=== PATIENT | female | born 1960 | race Caucasian/White ===

== ENCOUNTER 2016-08-27 14:07 | Emergency (ER) | payer OTHER ==
--- NOTE | 2016-08-27 15:33 | ED ---
General Adult HPI - General Chief complaint: Abdominal Pain Stated complaint: Abd Pain Time Seen by Provider: 08/27/16 14:15 Source: patient, RN notes reviewed Mode of arrival: ambulatory Limitations: no limitations - History of Present Illness Initial comments: This is a 56 year old female who presents emergency pain of right lower quadrant abdominal pain. Patient states it started last night got considerably worse today. Patient states the pain is intermittent. It never goes was completely but he gets worse at times. Patient states nothing she does makes it feel much better however she says pressing on it initially hurts but it seems that she keeps her pressure on the area it does feel better. Patient denies any fever chills. Patient denies any nausea vomiting or diarrhea. Patient denies any dysuria hematuria urinary frequency. Patient has a past surgery for colectomy and a hysterectomy and the gastric bypass. Patient denies any chest pain difficult breathing shortness of breath. Patient denies any headache patient denies lightheadedness dizziness in his left low. Patient states she does have a little bit of lower back pain bilaterally. - Related Data Home Medications Medication Instructions Recorded Confirmed ALPRAZolam [Xanax] 0.5 mg PO DAILY PRN 08/27/16 08/27/16 Lansoprazole [Prevacid] 15 mg PO DAILY 08/27/16 08/27/16 Multivitamins, Thera [Multivitamin 1 tab PO DAILY 08/27/16 08/27/16 (formulary)] Allergies Allergy/AdvReac Type Severity Reaction Status Date / Time No Known Allergies Allergy Verified 08/27/16 15:15 Review of Systems ROS Statement: Those systems with pertinent positive or pertinent negative responses have been documented in the HPI. ROS Other: All systems not noted in ROS Statement are negative. Past Medical History Past Medical History: Cancer Additional Past Medical History / Comment(s): left breast cancer History of Any Multi-Drug Resistant Organisms: MRSA Date of last positivie culture/infection: 2015 MDRO Source:: right knee Past Surgical History: Adenoidectomy, Bariatric Surgery, Hysterectomy, Tonsillectomy Additional Past Surgical History / Comment(s): lumpectomy Past Psychological History: No Psychological Hx Reported Smoking Status: Never smoker Past Alcohol Use History: None Reported Past Drug Use History: None Reported General Exam - General Exam Comments Initial Comments: GENERAL: Patient is well-developed and well-nourished. Patient is nontoxic and well- hydrated and is in mild distress. ENT: Neck is soft and supple. No significant lymphadenopathy is noted. Oropharynx is clear. Moist mucous membranes. Neck has full range of motion without eliciting any pain. EYES: The sclera were anicteric and conjunctiva were pink and moist. Extraocular movements were intact and pupils were equal round and reactive to light. Eyelids were unremarkable. PULMONARY: Unlabored respirations. Good breath sounds bilaterally. No audible rales rhonchi or wheezing was noted. CARDIOVASCULAR: There is a regular rate and rhythm without any murmurs gallops or rubs. ABDOMEN: Patient has right lower quadrant point tenderness there is no rebound or guarding SKIN: Skin is clear with no lesions or rashes and otherwise unremarkable. NEUROLOGIC: Patient is alert and oriented x3. Cranial nerves II through XII are grossly intact. Motor and sensory are also intact. Normal speech, volume and content. Symmetrical smile. MUSCULOSKELETAL: Normal extremities with adequate strength and full range of motion. No lower extremity swelling or edema. No calf tenderness. LYMPHATICS: No significant lymphadenopathy is noted PSYCHIATRIC: Normal psychiatric evaluation. Limitations: no limitations Course Vital Signs 08/27/16 14:13 Temperature 98.9 F Pulse Rate 92 Respiratory 16 Rate Blood Pressure 144/91 O2 Sat by Pulse 96 Oximetry Medical Decision Making - Medical Decision Making Computed tomography scan shows no acute abnormality. I went back and reevaluated the patient she states the pain would go away and come back intermittently through her ED stay. Patient states currently the pain is not there. - Lab Data Result diagrams: 08/27/16 15:36 08/27/16 15:36 Lab Results 08/27/16 08/27/16 08/27/16 Range/Units 15:36 15:36 15:36 WBC 7.3 (3.8-10.6) k/uL RBC 4.89 (3.80-5.40) m/uL Hgb 14.1 (11.4-16.0) gm/dL Hct 41.6 (34.0-46.0) % MCV 85.1 (80.0-100.0) fL MCH 28.8 (25.0-35.0) pg MCHC 33.8 (31.0-37.0) g/dL RDW 14.0 (11.5-15.5) % Plt Count 329 (150-450) k/uL Neutrophils % 68 % Lymphocytes % 23 % Monocytes % 4 % Eosinophils % 3 % Basophils % 1 % Neutrophils # 5.0 (1.3-7.7) k/uL Lymphocytes # 1.7 (1.0-4.8) k/uL Monocytes # 0.3 (0-1.0) k/uL Eosinophils # 0.2 (0-0.7) k/uL Basophils # 0.1 (0-0.2) k/uL Sodium 141 (137-145) mmol/L Potassium 4.1 (3.5-5.1) mmol/L Chloride 105 (98-107) mmol/L Carbon Dioxide 23 (22-30) mmol/L Anion Gap 13 mmol/L BUN 12 (7-17) mg/dL Creatinine 0.63 (0.52-1.04) mg/dL Est GFR (MDRD) Af Amer >60 (>60 ml/min/1.73 sqM) Est GFR (MDRD) Non-Af >60 (>60 ml/min/1.73 sqM) Glucose 104 H (74-99) mg/dL Calcium 9.7 (8.4-10.2) mg/dL Total Bilirubin 0.6 (0.2-1.3) mg/dL AST 19 (14-36) U/L ALT 23 (9-52) U/L Alkaline Phosphatase 141 H (38-126) U/L Total Protein 7.4 (6.3-8.2) g/dL Albumin 4.3 (3.5-5.0) g/dL Amylase 59 (30-110) U/L Lipase 120 (23-300) U/L Urine Color Light Yellow Urine Appearance Clear (Clear) Urine pH 5.0 (5.0-8.0) Ur Specific [place] 1.003 (1.001-1.035) Urine Protein Negative (Negative) Urine Glucose (UA) Negative (Negative) Urine Ketones Negative (Negative) Urine Blood Negative (Negative) Urine Nitrite Negative (Negative) Urine Bilirubin Negative (Negative) Urine Urobilinogen <2.0 (<2.0) mg/dL Ur Leukocyte Esterase Negative (Negative) Disposition Clinical Impression: Abdominal pain Disposition: HOME SELF-CARE Instructions: Abdominal Pain (ED) Referrals: Erich Fisher MD [Primary Care Provider] - 1-2 days Time of Disposition: 16:53
[2016-08-27 15:55] LABS: Appearance,Urine Clear (Clear); Basophils # (A) 0.1 k/uL (0-0.2); Basophils % (A) 1 %; Bilirubin,Urine Negative (Negative); CH 28.9; CHCM 34.1; Eosinophils # (A) 0.2 k/uL (0-0.7); Eosinophils % (A) 3 %; Glucose,Urine (UA) Negative (Negative); HCT 41.6 % (34.0-46.0); HGB 14.1 gm/dL (11.4-16.0); Ketones,Urine Negative (Negative); Leukocyte Esterase,Urine Negative (Negative); Luc # (Auto) 0.17; Luc % (Auto) 2; Lymphocytes # (A) 1.7 k/uL (1.0-4.8); Lymphocytes % (A) 23 %; MCH 28.8 pg (25.0-35.0); MCHC 33.8 g/dL (31.0-37.0); MCV 85.1 fL (80.0-100.0); Mean Platelet Volume 6.9; Monocytes # (A) 0.3 k/uL (0-1.0); Monocytes % (A) 4 %; Neutrophils % (A) 68 %; Nitrite,Urine Negative (Negative); Protein,Urine Negative (Negative); RBC 4.89 m/uL (3.80-5.40); Specific Gravity,Urine 1.003 (1.001-1.035); UA Billing (MACRO vs. MICRO) CHEM; Urobilinogen,Urine <2.0 mg/dL (<2.0); WBC 7.3 k/uL (3.8-10.6); WBC (Perox) 7.55
--- NOTE | 2016-08-27 16:13 | CT ---
EXAMINATION TYPE: CT abdomen pelvis wo con DATE OF EXAM: 08/27/2016 3:57 PM COMPARISON: NONE HISTORY: Abdominal pain CT DLP: 1202 mGycm Automated exposure control for dose reduction was used. TECHNIQUE: Helical acquisition of images from the lung bases through the pelvis. FINDINGS: Postop changes are noted at the gastroesophageal junction, patient is status post gastric s leeve surgery, surgical clips are present. Lack of contrast may compromise sensitivity. Small anterio r abdominal wall hernia present at the umbilicus contains fat. Vipul are present along the midline anteriorly. LUNG BASES: No significant abnormality is appreciated. AORTA: No significant abnormality is appreciated. LIVER/GB: No significant abnormality is appreciated. PANCREAS: No significant abnormality is seen. SPLEEN: No significant abnormality is seen. ADRENALS: No significant abnormality is seen. KIDNEYS: No significant abnormality is seen. REPRODUCTIVE ORGANS: Not evident URINARY BLADDER: Not distended. BOWEL: No evident bowel obstruction. Diverticular changes noted within the pelvis. Difficult to excl ude some local inflammatory change although findings may be due to post hysterectomy change, no evide nt abscess. FREE AIR: No Free Air is visible. ASCITES: None visible. PELVIC ADENOPATHY: None visualized. RETROPERITONEAL ADENOPATHY: No Retroperitoneal Adenopathy visible. OSSEOUS STRUCTURES: Bilateral spondylolysis at L5 is present, there is a grade 1 anterolisthesis L5- S1 with associated loss of disc height, degenerative disc change. IMPRESSION: DIVERTICULOSIS. CORRELATE TO EXCLUDE DIVERTICULITIS. POSTOP CHANGES. NONCONTRAST EXAM COULD LIMIT SEN SITIVITY. SMALL ANTERIOR ABDOMINAL WALL HERNIA. FOLLOW-UP INDICATED.
[2016-08-27 16:14] LABS: ALT 23 U/L (9-52); AST 19 U/L (14-36); Alkaline Phosphatase 141 U/L (38-126); Amylase 59 U/L (30-110); Anion Gap 13 mmol/L; Blood Urea Nitrogen 12 mg/dL (7-17); Calcium 9.7 mg/dL (8.4-10.2); Carbon Dioxide 23 mmol/L (22-30); Chloride 105 mmol/L (98-107); Glucose 104 mg/dL (74-99); Non-African American GFR(MDRD) >60 (>60 ml/min/1.73 sqM); Potassium 4.1 mmol/L (3.5-5.1); Sodium 141 mmol/L (137-145); Total Bilirubin 0.6 mg/dL (0.2-1.3); Total Protein 7.4 g/dL (6.3-8.2)
[2016-08-27 17:03] VITALS: BP 142/87; PULSE 81; RESP 18; TEMP 98.7
== END 2016-08-27 17:03 | disposition home or self-care (01) ==
LOC: EC 14:07
DX: R10.31 Right lower quadrant pain (principal); M54.5 Low back pain; Z79.899 Other long term (current) drug therapy; Z98.84 Bariatric surgery status; Z90.710 Acquired absence of both cervix and uterus
CPT/HCPCS: 36415; 74176; 80053; 81003; 82150; 83690; 85025; 99284

== ENCOUNTER → 2016-10-14 | Outpatient (CLI) | payer OTHER ==
--- NOTE | 2016-10-14 09:48 | US ---
EXAMINATION TYPE: US abdomen complete DATE OF EXAM: 10/14/2016 8:17 AM COMPARISON: CT CLINICAL HISTORY: 56-year-old female R10.9 ABD PAIN. Intermittent RLQ pain x 1 month, obese patient. TECHNIQUE: Multiple sonographic images of the abdomen are obtained. FINDINGS: Liver Length: 13.8 cm Gallbladder Wall: 2.7 mm CBD: 3.8 mm Spleen: 10.7 cm Right Kidney: 10.6 x 4.9 x 4.6 cm Left Kidney: 11.3 x 5.6 x 5.2 cm Pancreas: Suboptimal visualization secondary to shadowing from bowel gas. Liver: Slightly heterogeneous in echotexture could be on a technical basis. Gallbladder: No abnormal distention, wall thickening, pericholecystic fluid, or shadowing calculi. Evidence for sonographic Bourgeois's sign: no CBD: visualized portions wnl, limited by overlying bowel gas Spleen: wnl Right Kidney: No hydronephrosis Left Kidney: No hydronephrosis Upper IVC: Limited visualization. Abd Aorta: Limited visualization due to bowel gas. Small amount of perihepatic ascites fluid. Scanned RLQ at patient's area of pain: 2.0 x 1.1 x 1.2cm hypoechoic, non vascular area along the mon perficial fascia. IMPRESSION: 1. Slight heterogeneous appearance to the liver may be on a technical basis. Correlate to exclude non specific hepatocellular disease, especially given the mild perihepatic ascites. 2. Targeted scanning along the right lower quadrant at the site of patient's pain shows a 2.0 x 1.2 c m hypoechoic area along the superficial fascia of the anterior abdominal wall that could represent a tiny hernia.
== END | disposition home or self-care (01) ==
LOC: RADUSWWP 07:41
PROVIDERS: ATTEND Family Medicine
DX: R93.2 Abnormal findings on diagnostic imaging of liver and biliary tract (principal); R93.8 Abnormal findings on diagnostic imaging of other specified body structures; R10.9 Unspecified abdominal pain
CPT/HCPCS: 76700

== ENCOUNTER → 2016-11-08 | Outpatient (CLI) | payer OTHER ==
--- NOTE | 2016-11-08 10:50 | FL ---
EXAMINATION TYPE: FL UGI air w small bowel DATE OF EXAM: 11/08/2016 COMPARISON: CT abdomen and pelvis August 27, 2016. HISTORY: Epigastric pain, history of gastric bypass surgery years ago. TECHNIQUE: A single contrast UGI study is performed with small bowel follow through. A total of 10 s econds of fluoroscopic time is utilized during procedure. FINDINGS: Clinical Research Scientist image of the abdomen shows overlying subcutaneous vertical skin abraham with surgica l sutures epigastric region from bypass surgery. There is overall nonobstructive bowel gas pattern. The esophagus shows satisfactory motility and emptying into the stomach. No evidence of hiatal herni a or stricture noted. The remnant stomach pouch is unremarkable with good flow into anastomotic small bowel loop. The visualized small bowel is felt within normal limits. Imaging is performed through 90 minutes with transition only to ileal loops in the right lower quadrant. Patient could not stay for complete pass age of contrast to colonic level. Visualized bowel is unremarkable. IMPRESSION: Slightly suboptimal study as noted above. No suspicious finding is seen to account for p atient's symptoms. Changes from gastric bypass surgery without evidence of complication identified.
== END | disposition home or self-care (01) ==
LOC: RADFLMAIN 08:24
PROVIDERS: ATTEND Surgery
DX: Z48.815 Encounter for surgical aftercare following surgery on the digestive system (principal); R10.13 Epigastric pain; Z98.84 Bariatric surgery status
CPT/HCPCS: 74249

== ENCOUNTER 2016-11-18 15:02 | Inpatient (IN) | payer OTHER ==
[2016-11-18] MEDS ORDERED: IBUPROFEN 600 MG TAB PO STA (15:20)
[2016-11-18] MEDS ORDERED: ACETAMINOPHEN TAB 500 MG TAB PO STA (15:20)
[2016-11-18] MEDS ORDERED: SODIUM CHLORIDE 0.9% 1,000 ML IV STA (15:20)
[2016-11-18] MEDS ORDERED: SODIUM CHLORIDE 0.9% 500 ML IV STA (15:20)
--- NOTE | 2016-11-18 15:25 | ED ---
General Adult HPI - General Chief complaint: Recheck/Abnormal Lab/Rx Stated complaint: Dr Sent/Irr heartbeat Time Seen by Provider: 11/18/16 15:20 Source: patient, RN notes reviewed, old records reviewed Mode of arrival: wheelchair Limitations: no limitations - History of Present Illness Initial comments: This is a 56-year-old female the ER for evaluation of abdominal pain. Fauzia pain or fever. Patient has history of gastric bypass not at this facility, and consistent problems with abdominal pain. Patient states she was recently in the hospital about a week to 2 weeks ago and had a CT abdomen and pelvis which was negative. She may or may not have an abdominal hernia. Patient noted fever today. No nausea vomiting, no diarrhea. Patient was at her doctor's office today her surgeon's office and sent to ER for evaluation regarding symptoms. - Related Data Home Medications Medication Instructions Recorded Confirmed Multivitamins, Thera [Multivitamin 1 tab PO QAM 08/27/16 11/18/16 (formulary)] Lansoprazole [Prevacid] 30 mg PO DAILY 11/18/16 11/18/16 Allergies Allergy/AdvReac Type Severity Reaction Status Date / Time No Known Allergies Allergy Verified 11/18/16 16:10 Review of Systems ROS Statement: Those systems with pertinent positive or pertinent negative responses have been documented in the HPI. ROS Other: All systems not noted in ROS Statement are negative. Past Medical History Past Medical History: Cancer Additional Past Medical History / Comment(s): left breast cancer History of Any Multi-Drug Resistant Organisms: MRSA Date of last positivie culture/infection: 2015 MDRO Source:: right knee Past Surgical History: Adenoidectomy, Bariatric Surgery, Hysterectomy, Tonsillectomy Additional Past Surgical History / Comment(s): lumpectomy Past Psychological History: No Psychological Hx Reported Smoking Status: Never smoker Past Alcohol Use History: None Reported Past Drug Use History: None Reported General Exam Limitations: no limitations General appearance: alert, in no apparent distress, anxious, obese Head exam: Present: atraumatic, normocephalic, normal inspection Eye exam: Present: normal appearance, PERRL, EOMI. Absent: scleral icterus, conjunctival injection, periorbital swelling ENT exam: Present: normal exam, mucous membranes moist Neck exam: Present: normal inspection. Absent: tenderness, meningismus, lymphadenopathy Respiratory exam: Present: normal lung sounds bilaterally. Absent: respiratory distress, wheezes, rales, rhonchi, stridor Cardiovascular Exam: Present: normal rhythm, tachycardia, normal heart sounds. Absent: systolic murmur, diastolic murmur, rubs, gallop, clicks GI/Abdominal exam: Present: soft, distended, tenderness, normal bowel sounds. Absent: guarding, rebound, rigid Extremities exam: Present: normal inspection, full ROM, normal capillary refill. Absent: tenderness, pedal edema, joint swelling, calf tenderness Back exam: Present: normal inspection Neurological exam: Present: alert, oriented X3, CN II-XII intact Psychiatric exam: Present: normal affect, normal mood Skin exam: Present: warm, dry, intact, normal color. Absent: rash Course Vital Signs 11/18/16 11/18/16 11/18/16 15:10 15:43 17:09 Temperature 100.1 F H 100.4 F H Pulse Rate 121 H 121 H 113 H Respiratory 16 18 18 Rate Blood Pressure 150/97 148/89 146/83 O2 Sat by Pulse 95 95 93 L Oximetry - Reevaluation(s) Reevaluation #1: 11/18/16 16:[address] Clement, patient's transfer a surgeon regarding patient, Reevaluation #2: 11/18/16 17:20 Patient is feeling better with fever control and pain control at this time. Reevaluation #3: 11/18/16 17:22 Dr. Roe made aware of patient in the emergency room, EKG Findings - EKG Comments: EKG Findings:: EKG shows sinus tachycardia rate of 119, IN 1:30, QRS 88, QTC 436 Medical Decision Making - Medical Decision Making 36 female sent ER for evaluation regarding abdominal pain transferred from Dr. Stevens's office, patient follows up there for evaluation of about pain. Multiple recent episodes of bowel pain and evaluation, patient also noted fever today overnight. Patient does have ascites on ultrasound, x-ray and urine are negative for infection, no other obvious source of infection patient has no rash no chest pain no sore throat no cough or congestion. At this point we have fever control start Gen. antibiotics regarding fever and patient will be admitted for surgical evaluation - Lab Data Result diagrams: 11/18/16 15:45 11/18/16 15:45 Lab Results 11/18/16 11/18/16 11/18/16 Range/Units 15:45 15:45 15:45 WBC 7.7 (3.8-10.6) k/uL RBC 4.91 (3.80-5.40) m/uL Hgb 13.6 (11.4-16.0) gm/dL Hct 42.4 (34.0-46.0) % MCV 86.5 (80.0-100.0) fL MCH 27.8 (25.0-35.0) pg MCHC 32.1 (31.0-37.0) g/dL RDW 13.1 (11.5-15.5) % Plt Count 589 H (150-450) k/uL Neutrophils % 78 % Lymphocytes % 14 % Monocytes % 6 % Eosinophils % 1 % Basophils % 0 % Neutrophils # 6.0 (1.3-7.7) k/uL Lymphocytes # 1.0 (1.0-4.8) k/uL Monocytes # 0.4 (0-1.0) k/uL Eosinophils # 0.1 (0-0.7) k/uL Basophils # 0.0 (0-0.2) k/uL PT (9.0-12.0) sec INR (<1.1) APTT (22.0-30.0) sec Sodium 138 (137-145) mmol/L Potassium 4.1 (3.5-5.1) mmol/L Chloride 100 (98-107) mmol/L Carbon Dioxide 26 (22-30) mmol/L Anion Gap 12 mmol/L BUN 10 (7-17) mg/dL Creatinine 0.60 (0.52-1.04) mg/dL Est GFR (MDRD) Af Amer >60 (>60 ml/min/1.73 sqM) Est GFR (MDRD) Non-Af >60 (>60 ml/min/1.73 sqM) Glucose 107 H (74-99) mg/dL Plasma Lactic Acid Esau 0.9 (0.7-2.0) mmol/L Calcium 9.1 (8.4-10.2) mg/dL Phosphorus 4.0 (2.5-4.5) mg/dL Magnesium 2.1 (1.6-2.3) mg/dL Total Bilirubin 0.6 (0.2-1.3) mg/dL AST 19 (14-36) U/L ALT 28 (9-52) U/L Alkaline Phosphatase 105 (38-126) U/L Total Creatine Kinase (30-135) U/L CK-MB (CK-2) (0.0-2.4) ng/mL CK-MB (CK-2) Rel Index Troponin I (0.000-0.034) ng/mL Total Protein 6.4 (6.3-8.2) g/dL Albumin 3.5 (3.5-5.0) g/dL Urine Color Urine Appearance (Clear) Urine pH (5.0-8.0) Ur Specific [place] (1.001-1.035) Urine Protein (Negative) Urine Glucose (UA) (Negative) Urine Ketones (Negative) Urine Blood (Negative) Urine Nitrite (Negative) Urine Bilirubin (Negative) Urine Urobilinogen (<2.0) mg/dL Ur Leukocyte Esterase (Negative) Urine RBC (0-5) /hpf Urine WBC (0-5) /hpf Ur Squamous Epith Cells (0-4) /hpf Urine Bacteria (None) /hpf Urine Mucus (None) /hpf 11/18/16 11/18/16 11/18/16 Range/Units 15:45 15:45 15:45 WBC (3.8-10.6) k/uL RBC (3.80-5.40) m/uL Hgb (11.4-16.0) gm/dL Hct (34.0-46.0) % MCV (80.0-100.0) fL MCH (25.0-35.0) pg MCHC (31.0-37.0) g/dL RDW (11.5-15.5) % Plt Count (150-450) k/uL Neutrophils % % Lymphocytes % % Monocytes % % Eosinophils % % Basophils % % Neutrophils # (1.3-7.7) k/uL Lymphocytes # (1.0-4.8) k/uL Monocytes # (0-1.0) k/uL Eosinophils # (0-0.7) k/uL Basophils # (0-0.2) k/uL PT 10.0 (9.0-12.0) sec INR 1.0 (<1.1) APTT 24.3 (22.0-30.0) sec Sodium (137-145) mmol/L Potassium (3.5-5.1) mmol/L Chloride (98-107) mmol/L Carbon Dioxide (22-30) mmol/L Anion Gap mmol/L BUN (7-17) mg/dL Creatinine (0.52-1.04) mg/dL Est GFR (MDRD) Af Amer (>60 ml/min/1.73 sqM) Est GFR (MDRD) Non-Af (>60 ml/min/1.73 sqM) Glucose (74-99) mg/dL Plasma Lactic Acid Esau (0.7-2.0) mmol/L Calcium (8.4-10.2) mg/dL Phosphorus (2.5-4.5) mg/dL Magnesium (1.6-2.3) mg/dL Total Bilirubin (0.2-1.3) mg/dL AST (14-36) U/L ALT (9-52) U/L Alkaline Phosphatase (38-126) U/L Total Creatine Kinase 22 L (30-135) U/L CK-MB (CK-2) 0.2 (0.0-2.4) ng/mL CK-MB (CK-2) Rel Index 0.9 Troponin I <0.012 (0.000-0.034) ng/mL Total Protein (6.3-8.2) g/dL Albumin (3.5-5.0) g/dL Urine Color Yellow Urine Appearance Cloudy H (Clear) Urine pH 5.5 (5.0-8.0) Ur Specific [place] 1.013 (1.001-1.035) Urine Protein Negative (Negative) Urine Glucose (UA) Negative (Negative) Urine Ketones 2+ H (Negative) Urine Blood Negative (Negative) Urine Nitrite Negative (Negative) Urine Bilirubin Negative (Negative) Urine Urobilinogen <2.0 (<2.0) mg/dL Ur Leukocyte Esterase Small H (Negative) Urine RBC 1 (0-5) /hpf Urine WBC 5 (0-5) /hpf Ur Squamous Epith Cells 11 H (0-4) /hpf Urine Bacteria Rare H (None) /hpf Urine Mucus Rare H (None) /hpf - Radiology Data Radiology results: report reviewed (Ultrasound abdomen and pelvis that show increase in ascitic fluid which appears to be new from prior ultrasound), image reviewed Disposition Clinical Impression: Ascites, Abdominal pain, Fever Disposition: ADMITTED IP TO THIS HOSP Condition: Good Referrals: Erich Fisher MD [Primary Care Provider] - 1-2 days
[2016-11-18 16:09] LABS: Basophils % (A) 0 %; CH 28.3; CHCM 32.8; Eosinophils # (A) 0.1 k/uL (0-0.7); Eosinophils % (A) 1 %; HCT 42.4 % (34.0-46.0); HDW 2.72; HGB 13.6 gm/dL (11.4-16.0); Luc # (Auto) 0.11; Luc % (Auto) 2; Lymphocytes % (A) 14 %; MCH 27.8 pg (25.0-35.0); MCHC 32.1 g/dL (31.0-37.0); MCV 86.5 fL (80.0-100.0); Mean Platelet Volume 6.2; Monocytes # (A) 0.4 k/uL (0-1.0); Monocytes % (A) 6 %; Neutrophils % (A) 78 %; RBC 4.91 m/uL (3.80-5.40); RDW 13.1 % (11.5-15.5); WBC 7.7 k/uL (3.8-10.6); WBC (Perox) 6.99
[2016-11-18 16:12] LABS: Appearance,Urine Cloudy (Clear); Bacteria,Urine Rare /hpf; Bilirubin,Urine Negative (Negative); Glucose,Urine (UA) Negative (Negative); Ketones,Urine 2+ (Negative); Leukocyte Esterase,Urine Small (Negative); Mucus,Urine Rare /hpf; Nitrite,Urine Negative (Negative); PH, Urine 5.5 (5.0-8.0); Particle Count 11680; Protein,Urine Negative (Negative); RBC,Urine 1 /hpf (0-5); Specific Gravity,Urine 1.013 (1.001-1.035); Squamous Epithelial Cell,Urine 11 /hpf (0-4); UA Billing (MACRO vs. MICRO) MICRO; Urobilinogen,Urine <2.0 mg/dL (<2.0); WBC,Urine 5 /hpf (0-5)
[2016-11-18 16:19] LABS: Partial Thromboplastin Time 24.3 sec (22.0-30.0)
[2016-11-18 16:21] LABS: ALT 28 U/L (9-52); AST 19 U/L (14-36); Alkaline Phosphatase 105 U/L (38-126); Anion Gap 12 mmol/L; Blood Urea Nitrogen 10 mg/dL (7-17); Calcium 9.1 mg/dL (8.4-10.2); Carbon Dioxide 26 mmol/L (22-30); Chloride 100 mmol/L (98-107); Glucose 107 mg/dL (74-99); Magnesium 2.1 mg/dL (1.6-2.3); Non-African American GFR(MDRD) >60 (>60 ml/min/1.73 sqM); Potassium 4.1 mmol/L (3.5-5.1); Sodium 138 mmol/L (137-145); Total Bilirubin 0.6 mg/dL (0.2-1.3); Total Protein 6.4 g/dL (6.3-8.2)
[2016-11-18 16:23] LABS: Creatine Kinase 22 U/L (30-135)
[2016-11-18 16:36] LABS: Creatine Kinase MB 0.2 ng/mL (0.0-2.4); Troponin I <0.012 ng/mL (0.000-0.034)
--- NOTE | 2016-11-18 17:13 | US ---
EXAMINATION TYPE: US gallbladder DATE OF EXAM: 11/18/2016 COMPARISON: NONE CLINICAL HISTORY: Pain. Abdominal with food ingestion; bloating EXAM MEASUREMENTS: Liver Length: 13.0 cm Gallbladder Wall: 0.3 cm CBD: 0.3 cm Right Kidney: 10.2 x 4.8 x 4.6 cm Pancreas: hyperechoic as seen; limitedly seen due overlying bowel gas Liver: surrounded by ascites Gallbladder: wnl Evidence for sonographic Bourgeois's sign: pain with pressure CBD: wnl Right Kidney: wnl Ascites is noted in all 4 quadrants with largest at RLQ fluid pocket = 13.1cm A/P and at LLQ fluid po cket = 14.7cm A/P IMPRESSION: There is ascites fluid noted. No gallstones or dilated ducts.
[2016-11-18] MEDS ORDERED: ONDANSETRON 4 MG/2 ML VIAL IVP STA (17:16)
[2016-11-18] MEDS ORDERED: MORPHINE SULFATE 4 MG/ML SYRINGE IVP PRN (17:16)
[2016-11-18] MEDS ORDERED: ONDANSETRON 4 MG/2 ML VIAL IVP PRN (17:16)
[2016-11-18] MEDS ORDERED: MORPHINE SULFATE 4 MG/ML SYRINGE IVP STA (17:16)
[2016-11-18] MEDS ORDERED: cefTRIAXone 2,000 MG in SODIUM CHLORIDE 0.9% 100 ML IVPB STA (17:19)
[2016-11-18] MEDS ORDERED: IBUPROFEN 400 MG TAB PO PRN (17:22)
[2016-11-18] MEDS ORDERED: ACETAMINOPHEN TAB 325 MG TAB PO PRN (17:22)
--- NOTE | 2016-11-18 17:33 | XR ---
EXAMINATION TYPE: XR chest 2V DATE OF EXAM: 11/18/2016 COMPARISON: NONE HISTORY: Abdominal pain. Chest pain TECHNIQUE: Frontal and lateral views of the chest are obtained. FINDINGS: There is mild linear density in the right lower lobe. There are clips over the left breast . Heart size is normal. There is no heart failure. There is no definite pleural effusion. IMPRESSION: Mild atelectasis in the right lung. Normal heart. No sign of free air.
[2016-11-18] MEDS ORDERED: RX INFO: IV CONTRAST WAS GIVEN 1 EACH MISC MISCELLANE PRN (19:36)
[2016-11-18] MEDS: IOHEXOL 350 MG/ML 25 ML BOTTLE (ORAL USE) PO PRN ×2 (19:50→21:11)
--- NOTE | 2016-11-18 23:18 | CT ---
EXAM: CT Abdomen and Pelvis With Intravenous Contrast CLINICAL HISTORY: Reason: Abdominal pain TECHNIQUE: Axial computed tomography images of the abdomen and pelvis with intravenous contrast. CTDI is 21.20 MGy and DLP is 1892.70 MGy-cm. This CT exam was performed using one or more of the following dose reduction techniques: automated exposure control, adjustment of the mA and/or kV according to patient size, and/or use of iterative reconstruction technique. COMPARISON: CT abdomen and pelvis 08/27/16. FINDINGS: Lower thorax: Trace left pleural effusion. Right lower lobe discoid atelectasis. ABDOMEN: Liver: No mass. Gallbladder and bile ducts: Gallbladder is mildly distended. No calcified gallstone. No biliary dilatation. Pancreas: Unremarkable. No mass. No ductal dilation. Spleen: Unremarkable. No splenomegaly. Adrenals: Unremarkable. No mass. Kidneys and ureters: Unremarkable. No solid mass. No hydronephrosis. Stomach and bowel: Postoperative changes of gastrectomy. No obstruction. Appendix: Appendix not definitively seen. PELVIS: Bladder: Decompressed. Reproductive: Uterus is surgically absent. ABDOMEN and PELVIS: Intraperitoneal space: Diffuse soft tissue infiltration of the omentum (for example ), and thickening and nodularity of the peritoneal lining, (for example, in the right infrahepatic space on ). Findings are compatible with peritoneal carcinomatosis. New large amount of ascites. Bones/joints: Bilateral pars defects of L5 with grade 1 anterolisthesis of L5 on S1. No acute fracture Soft tissues: Midline abdominal wall surgical abraham.. Vasculature: Unremarkable. No abdominal aortic aneurysm. Lymph nodes: Unremarkable. No enlarged lymph nodes. IMPRESSION: 1. Diffuse soft tissue infiltration of the omentum, and thickening and nodularity of the peritoneal lining. Findings are compatible with peritoneal carcinomatosis. 2. New large amount of ascites, likely malignant ascites given the above findings. In the setting of infection, peritonitis could also be considered. 3. Trace left pleural effusion.
[2016-11-19] MEDS: cefTRIAXone 2,000 MG in SODIUM CHLORIDE 0.9% 100 ML IVPB SCH ×2 (05:17→18:16)
--- NOTE | 2016-11-19 08:14 | P.PN ---
Progress Note - Text Please see full dictated report. Patient comes in with history of 2 weeks of increased abdominal distention. Incidentally she also reports right upper quadrant abdominal pain. Ultrasound was unremarkable however. She does report intolerance to fatty greasy foods. She reports over 100+ pound weight loss following gastric bypass 17 years ago. She also reports previous history of breast cancer 17 years ago. I personally ordered a CT of the abdomen and pelvis which results are still pending at this time. I discussed with her GI consultation for additional workup.
--- NOTE | 2016-11-19 10:28 | US ---
Therapeutic and diagnostic paracentesis. DATE OF EXAM: 11/19/2016 CLINICAL HISTORY: Ascites The procedure was discussed with the patient. The risks, complications, benefits, and alternatives we re discussed and any questions were answered. Informed consent was obtained. The patient was placed s upine on the ultrasound table and prepped and draped in the usual sterile fashion. All elements of maximal barrier technique were utilized. Under ultrasound guidance, access into the left lower quadrant was obtained, via the paracentesis catheter system and direct ultrasound guidance . Approximately 5.7 liters of straw-colored fluid was removed. Sample sent to pathology for analysis as requested. The patient was stable throughout the procedure and remained stable upon discharge from [facility]. IMPRESSION: Successful paracentesis under ultrasound guidance.
--- NOTE | 2016-11-19 11:44 | P.CONS ---
History of Present Illness - Reason for Consult Consult date: 11/19/16 ascites Requesting physician: Chelsea Roe - History of Present Illness 56 y/o female known to Dr. Smallwood [facility] breast carcinoma 17 years ago with lumpectomy radiation, Luca-en-Y gastric bypass present with abdominal distention and discomfort x 1 month. Diagnostic paracentesis this morning 5.7L removal. Consultation for ascites. No history of liver disorders, autoimmune diseases, or ETOH. Denies fever, chills, weight loss, vaginal discharge. Denies hematemesis hematochezia melena. LFTs. normal. Calcium 11.3. Platelet 589. MCV 86. Hemoglobin 13.6. Protein 6.4. Albumin 3.5. US No gallstones no dilated ducts. CT abdomen/pelvis; omental thickening; findings compatiable with peritoneal carcinomatosis. Review of Systems Constitutional: Denies fever, chills, sweats, weight gain, or loss. HEENT: Negative for migraines, blurred vision or loss, earaches, drainage, tinnitus, oral mucosal lesions, dysphagia, or odynophagia. CARDIAC: Negative for chest pain, arrhythmias, or palpitation. RESPIRATORY: Negative for shortness of breath, hemoptysis, cough, or sputum production. GI: See HPI for pertinent findings. : Negative for hematuria, urgency, frequency, polyuria, or dysuria. GYNc: Breast cancer. Denies possibility of . Negative vaginal discharge. MUSCULOSKELETAL: Negative for muscle aches, swelling, arthritis, and arthralgias. NEUROLOGIC: Negative for stroke or TIA. ENDOCRINE: Negative for thyroid problems. SKIN: Negative for rash or itching. PSYCHIATRIC: Negative history for depression and anxiety All systems: negative (See HPI) Past Medical History Past Medical History: Cancer, Osteoarthritis (OA) Additional Past Medical History / Comment(s): left breast cancer, hiatal hernia , diverticular dz,bronchitis History of Any Multi-Drug Resistant Organisms: None Reported Year Discovered:: 2016 MDRO Source:: right knee Past Surgical History: Adenoidectomy, Bariatric Surgery, Bladder Surgery, Hysterectomy, Tonsillectomy Additional Past Surgical History / Comment(s): LT BREAST BX/lumpectomy/ RADIATION 2000, hysterectomy-"bowel was knicked" had sx to repair bowel, egd/ colonoscopy, uvula removed d/t sleep apnea, rt knee meniscus repair. pt stated had a nasal swab done prior to rt knee sx positive for mrsa and was tx.. Past Anesthesia/Blood Transfusion Reactions: No Reported Reaction Additional Past Anesthesia/Blood Transfusion Reaction / Comm: clausterphobia Smoking Status: Never smoker - Past Family History Father Family Medical History: Hypertension Mother Family Medical History: Asthma, COPD, CVA/TIA Additional Family Medical History / Comment(s): emphysema- o2 dependant. Medications and Allergies Home Medications Medication Instructions Recorded Confirmed Type Multivitamins, Thera [Multivitamin 1 tab PO QAM 08/27/16 11/18/16 History (formulary)] Lansoprazole [Prevacid] 30 mg PO DAILY 11/18/16 11/18/16 History Allergies Allergy/AdvReac Type Severity Reaction Status Date / Time No Known Allergies Allergy Verified 11/18/16 16:10 Physical Exam Vitals: Vital Signs Temp Pulse Pulse Resp BP BP Pulse Ox 11/19/16 10:05 111 H 16 138/86 94 L 11/19/16 09:44 114 H 16 148/84 11/19/16 09:29 111 H 16 157/82 94 L 11/19/16 09:05 116 H 16 165/91 97 11/19/16 01:41 97.4 F L 107 H 16 138/88 11/18/16 18:37 97.6 F 105 H 16 138/93 94 L 11/18/16 17:56 99.0 F 115 H 18 136/84 93 L 11/18/16 17:09 113 H 18 146/83 93 L 11/18/16 15:43 100.4 F H 121 H 18 148/89 95 11/18/16 15:10 100.1 F H 121 H 16 150/97 95 Intake and Output 11/18/16 11/19/16 11/19/16 22:59 06:59 14:59 Intake Total 650 350 360 Balance 650 350 360 Intake: Intake, IV Titration 350 100 Amount Sodium Chloride 0.9% 1, 350 000 ml @ 100 mls/hr IV . Q10H [facility] Rx#:[id number] cefTRIAXone 2,000 mg In 100 Sodium Chloride 0.9% 100 ml @ 100 mls/hr IVPB Q12H [facility] Rx#:[id number] Oral 300 250 360 Other: Voiding Method Toilet # Voids 2 3 Weight 101.605 kg General appearance: The patient is alert, oriented, in no acute distress. HET: Head is normocephalic and atraumatic. Pupils are equal and reactive. Oropharynx is clear without lesions. Neck: Supple without lymphadenopathy. Trachea midline. Heart: S1 S2. Regular rate and rhythm. Lungs: No crackles or wheezes are heard. Abdomen: Soft, nontender, nondistended with bowel sounds. No peritoneal signs. No palpable organomegaly or masses. Extremities: Normal skin color and turgor. No cyanosis, rash, ulceration, clubbing, or edema. Radial and pedal pulses are 2/4 bilaterally. Neurological: No focal deficits. Strength and sensation are grossly intact. Results CBC & Chem 7: 11/18/16 15:45 11/18/16 15:45 Labs: Abnormal Lab Results - Last 24 Hours (Table) 11/18/16 11/18/16 11/18/16 Range/Units 15:45 15:45 15:45 Plt Count 589 H (150-450) k/uL Glucose 107 H (74-99) mg/dL Total Creatine Kinase 22 L (30-135) U/L Urine Appearance (Clear) Urine Ketones (Negative) Ur Leukocyte Esterase (Negative) Ur Squamous Epith Cells (0-4) /hpf Urine Bacteria (None) /hpf Urine Mucus (None) /hpf 11/18/16 Range/Units 15:45 Plt Count (150-450) k/uL Glucose (74-99) mg/dL Total Creatine Kinase (30-135) U/L Urine Appearance Cloudy H (Clear) Urine Ketones 2+ H (Negative) Ur Leukocyte Esterase Small H (Negative) Ur Squamous Epith Cells 11 H (0-4) /hpf Urine Bacteria Rare H (None) /hpf Urine Mucus Rare H (None) /hpf Microbiology - Last 24 Hours (Table) 11/18/16 15:45 Urine Culture - Preliminary Urine,Voided CT scan - abdomen: report reviewed (Dr. Mahan) US - abdomen: report reviewed (Dr. Mahan) Assessment and Plan (1) Ascites Narrative/Plan: Possible malignant ascites. Etiology of ascites does not appear to be liver related. CT abdomen pelvis reported omental thickening suspicious for peritoneal carcinomatosis. Status: Acute (2) H/O malignant neoplasm of breast Status: Acute (3) History of Luca-en-Y gastric bypass Status: Acute (4) Serum calcium elevated Status: Acute Plan: 1. Ascites fluid for cytology as well as albumin, protein, culture, cell count and glucose. 2. Recommend oncology consult. 3. No further workup at this time. Thank you for this kind referral and the opportunity to participate in the care of your patient. This consultation was discussed with Dr. Mahan. The impression and plan of care have been directed as dictated.
[2016-11-19] MEDS ORDERED: SODIUM CHLORIDE 0.9% 1,000 ML IV SCH (14:15)
[2016-11-19 15:59] LABS: RBC, Body Fluid 1700 /uL
[2016-11-19] MEDS ORDERED: LORazepam 2 MG/ML SYRINGE IV PRN (21:05)
[2016-11-19 21:21] LABS: Glucose, BF Source Ascites; T. Protein, Body Fluid Source Ascites; Total Protein, Body Fluid 4400 mg/dL
[2016-11-20 02:06] VITALS: TEMP 97.9
[2016-11-20] MEDS: cefTRIAXone 2,000 MG in SODIUM CHLORIDE 0.9% 100 ML IVPB SCH (06:13)
[2016-11-20 07:36] VITALS: BP 130/81; PULSE 111; RESP 16
[2016-11-20] MEDS ORDERED: RX INFO: IV CONTRAST WAS GIVEN 1 EACH MISC MISCELLANE PRN (08:43)
--- NOTE | 2016-11-20 11:48 | P.DS ---
Providers Date of admission: 11/18/16 17:17 Expected date of discharge: 11/20/16 Attending physician: Chelsea Roe Consults: 11/19/16 12:21 Consult Physician Urgent Consulting Provider: Brandon Galeana Consult Reason/Comments: ? malignancy Do you want consulting provider notified?: Yes Primary care physician: [facility] Course: 56-year-old female presented on the day of admission to the emergency room with chief complaint of abdominal pain. Patient does give a history of having gastric bypass done in the past not at this facility about 17 years ago. Patient stated that she was recently hospitalized about a week or 2 ago had a CAT scan of the abdomen pelvis which she stated was negative. Patient stated there was no nausea no vomiting no diarrhea. Patient was at her doctor's office Dr. Roe and was sent into the emergency room for evaluation regarding the above-mentioned symptoms patient did undergo a paracentesis for ascites this was done on November 19 5.7 L of straw-colored fluid was removed was sent for pathology. Patient did undergo a CAT scan of the abdomen pelvis in summary it did show new large amount of ascites likely malignant ascites. Also noted diffuse soft tissue infiltration of the omentum and thickening and nodularity of the peritoneal lining. Findings are compatible with peritoneal carinomatosis Patient does have a history of left breast cancer 17 years ago primary oncologist is Dr. smallwood breast cancer was treated with a lumpectomy and radiation Patient was seen this admission by Dr. Galeana for oncology who did recommend a CAT scan of the chest and the patient follow-up with Dr. smallwood her primary oncologist Gastroenterology did evaluate the patient there was no further workup indicated at this time Patient was anxious to be discharged was felt to be medically stable was discharged on November 20 Impression discharge diagnosis Present on admission abdominal pain unclear etiology Status post paracentesis 5.7 liter fluid removed on November 19 for ascites History of left breast cancer 17 years prior History of arnold en Y gastric bypass 17 years prior CAT scan abdomen pelvis with IV contrast done on the 18 of November shows diffuse soft tissue infiltration of the omentum with thickening and nodularity of the peritoneal lining compatible with peritoneal carcinomatosis. With new large amount of ascites likely malignant ascites given the above findings Elevated platelet count of 589 Present on admission UTI with positive urine culture gram-negative bacilli strep agalactiae group B The above dictated assessment and findings were discussed with dr Roe Impression and the plan of care have been dictated as directed. Mara Peres nurse practitioner acting as a scribe for Dr. Roe Patient Condition at Discharge: Good Plan - Discharge Summary New Discharge Prescriptions: New Levofloxacin [Levaquin] 500 mg PO DAILY #7 tab Continue Multivitamins, Thera [Multivitamin (formulary)] 1 tab PO QAM Lansoprazole [Prevacid] 30 mg PO DAILY Discharge Medication List Multivitamins, Thera [Multivitamin (formulary)] 1 tab PO QAM 08/27/16 [History] Lansoprazole [Prevacid] 30 mg PO DAILY 11/18/16 [History] Levofloxacin [Levaquin] 500 mg PO DAILY #7 tab 11/20/16 [Rx] Follow up Appointment(s)/Referral(s): Erich Fisher MD [Primary Care Provider] - 1-2 days Kieran Smallwood MD [STAFF PHYSICIAN] - 1 Week Chelsea Roe MD [STAFF PHYSICIAN] - 1 Week Discharge Disposition: HOME SELF-CARE
--- NOTE | 2016-11-20 12:11 | CT ---
EXAMINATION TYPE: CT chest w con DATE OF EXAM: 11/20/2016 COMPARISON: NONE HISTORY: Lt breast CA, malignant ascites CT DLP: 352.4 mGycm. Automated Exposure Control for Dose Reduction was Utilized. TECHNIQUE: CT scan of the thorax is performed following with IV Contrast, patient injected with 100 mL of Omnipaque 300. FINDINGS: Poor contrast opacification is seen making essentially noncontrast study LUNGS: There is trace left basilar effusion with associated compressive atelectasis. There is linear scarring or atelectasis in both lower lungs. No suspicious parenchymal nodule or mass is present bila terally. No pneumothorax is seen bilaterally. Tracheobronchial tree is patent. MEDIASTINUM: There are no greater than 1 cm hilar or mediastinal lymph nodes. No cardiomegaly or pe ricardial effusion is seen. OTHER: Breast are only partially imaged. There are surgical changes in the stomach from bypass or sle gracy surgery. There is small hiatal hernia. Ascites in the upper abdomen is noted. There is mild multi level spurring in the spine IMPRESSION: No worrisome mass or adenopathy in the thorax.
--- NOTE | 2016-11-21 01:53 | P.CONS ---
History of Present Illness - Reason for Consult Consult date: 11/20/16 Ascites, Peritoneal carcinomatosis - History of Present Illness The patient is a 56-year-old lady, with a prior history of breast cancer on the left side, treated with lumpectomy and irradiation alone about 17 years ago. The patient has been having somewhat of chronic abdominal pain for 3 -4 months. She had a computed tomography scan in 08/16, as well as a small bowel follow-through subsequently and an ultrasound on 10/16. These were negative for any specific pathology. About 4 weeks ago she started experiencing abdominal distention that was progressive. This is associated with increasing abdominal pain that was more prominent in the upper abdomen. She therefore came into the emergency room. She had a repeat ultrasound of the abdomen done that was positive for the sonographic Bourgeois sign. Incidentally 8 also revealed significant ascites that was a new finding compared to the ultrasound done a month ago. She was therefore admitted to the hospital and had a computed tomography scan of the abdomen and pelvis done. This confirmed the presence of large volume ascites. It also showed evidence of infiltration of the peritoneum, consistent with peritoneal carcinomatosis. No definite adenopathy or visceral lesions were seen. The patient subsequently underwent an ultrasound-guided paracentesis with 5.7 L of fluid removed. She feels much more comfortable with removal of the fluid. Consult was placed for further evaluation and recommendations. Review of Systems Constitutional: Reports fatigue, Reports poor appetite Eyes: denies blurred vision, denies pain Ears: deny: decreased hearing, ear discharge, earache, tinnitus Ears, nose, mouth and throat: Denies headache, Denies sore throat Cardiovascular: Denies chest pain, Denies shortness of breath Respiratory: Denies cough Gastrointestinal: Reports as per HPI, Reports abdominal pain, Reports heartburn Genitourinary: Denies dysuria, Denies hematuria Menstruation: Reports postmenopausal Musculoskeletal: Denies myalgias Integumentary: Denies pruritus, Denies rash Neurological: Denies numbness, Denies weakness Psychiatric: Denies anxiety, Denies depression Endocrine: Reports fatigue Hematologic/Lymphatic: Reports as per HPI Past Medical History Past Medical History: Cancer, Osteoarthritis (OA) Additional Past Medical History / Comment(s): left breast cancer, hiatal hernia , diverticular dz,bronchitis History of Any Multi-Drug Resistant Organisms: None Reported Year Discovered:: None MDRO Source:: None Past Surgical History: Adenoidectomy, Bariatric Surgery, Bladder Surgery, Hysterectomy, Tonsillectomy Additional Past Surgical History / Comment(s): LT BREAST BX/lumpectomy/ RADIATION 2000, hysterectomy-"bowel was knicked" had sx to repair bowel, egd/ colonoscopy, uvula removed d/t sleep apnea, rt knee meniscus repair. pt stated had a nasal swab done prior to rt knee sx positive for mrsa and was tx.. Past Anesthesia/Blood Transfusion Reactions: No Reported Reaction Additional Past Anesthesia/Blood Transfusion Reaction / Comm: clausterphobia Smoking Status: Never smoker - Past Family History Father Family Medical History: Hypertension Mother Family Medical History: Asthma, COPD, CVA/TIA Additional Family Medical History / Comment(s): emphysema- o2 dependant. Medications and Allergies Home Medications Medication Instructions Recorded Confirmed Type Multivitamins, Thera [Multivitamin 1 tab PO QAM 08/27/16 11/18/16 History (formulary)] Lansoprazole [Prevacid] 30 mg PO DAILY 11/18/16 11/18/16 History Allergies Allergy/AdvReac Type Severity Reaction Status Date / Time No Known Allergies Allergy Verified 11/18/16 16:10 Physical Exam Vitals: Vital Signs Temp Pulse Resp BP Pulse Ox 11/20/16 07:00 97.9 F 111 H 16 130/81 95 11/20/16 02:05 97.9 F 107 H 17 129/63 98 11/19/16 20:59 98.8 F 126 H 16 138/75 94 L 11/19/16 18:59 96 11/19/16 13:36 98.6 F 129 H 16 135/77 96 11/19/16 10:05 111 H 16 138/86 94 L 11/19/16 09:44 114 H 16 148/84 11/19/16 09:29 111 H 16 157/82 94 L 11/19/16 09:05 116 H 16 165/91 97 Intake and Output 11/19/16 11/20/16 11/20/16 22:59 06:59 14:59 Intake Total 480 1200 Balance 480 1200 Intake: Intake, IV Titration 1200 Amount Sodium Chloride 0.9% 1, 1100 000 ml @ 20 mls/hr IV . Q24H [facility] Rx#:[id number] cefTRIAXone 2,000 mg In 100 Sodium Chloride 0.9% 100 ml @ 100 mls/hr IVPB Q12H [facility] Rx#:[id number] Oral 480 Other: Voiding Method Toilet # Voids 1 - Constitutional General appearance: no acute distress - EENT Eyes: EOMI, PERRLA ENT: hearing grossly normal, normal oropharynx - Neck Neck: no lymphadenopathy Thyroid: bilateral: normal size - Respiratory Respiratory: bilateral: CTA - Cardiovascular Rhythm: regular Heart sounds: normal: S1, S2 - Gastrointestinal General gastrointestinal: distended (mildly), normal bowel sounds, soft - Integumentary Integumentary: normal - Neurologic Neurologic: CNII-XII intact - Musculoskeletal Musculoskeletal: strength equal bilaterally - Psychiatric Psychiatric: A&O x's 3, appropriate affect Results CBC & Chem 7: 11/18/16 15:45 11/18/16 15:45 Labs: Microbiology - Last 24 Hours (Table) 11/19/16 09:24 Anaerobic Culture - Preliminary Ascites Fluid 11/19/16 09:24 Gram Stain - Preliminary Ascites Fluid Body Fluid Culture - Preliminary 11/18/16 15:45 Urine Culture - Preliminary Urine,Voided Gram Neg Bacilli Strep agalactiae - (group b) 11/18/16 15:45 Blood Culture - Preliminary Blood No Growth after 24 hours Chest x-ray: report reviewed CT scan - abdomen: report reviewed (08/16 and 11/16) CT scan - pelvis: report reviewed (08/16 and 11/16) US - abdomen: report reviewed (10/16 nd 11/16) Assessment and Plan (1) Ascites Narrative/Plan: The clinical impression is that of a malignant ascites, given the high protein content, as well as the appearance of peritoneal carcinomatosis on computed tomography scan. The clinical picture and implications were discussed in detail with her. While late recurrences, with peritoneal metastasis can occur, by history this appears to be a very early stage breast cancer as the patient did not have any chemotherapy or hormonal therapy. Therefore a new primary is much more likely. Gynecologic primary is usually the major differential in these situations. The patient did have a abdominal hysterectomy and bilateral oophorectomy about 10 years ago. However the surgery is not 100% protective, as patients may have small pectoralis implants of normal ovarian epithelium that can subsequently for malignancies. Other primaries are not excluded. - Await cytology report - Check computed tomography scan of the chest - From our standpoint patient can be discharged whenever felt to be stable for the same by the admitting service. She'll follow-up with Dr. Smallwood in the office. Case was d/w the admitting service Status: Acute (2) H/O malignant neoplasm of breast Narrative/Plan: This was 17 years ago, and appears to have been early stage based on the history. Though not impossible, given this history, it is much less likely that her current presentation is related to her previous cancer therefore. Status: Acute
[2016-11-25 10:18] LABS: Mis test requested (Non-blood) Albumin/Ascitic Fld
== END 2016-11-20 13:43 | disposition home or self-care (01) | DRG 375 ==
LOC: EC 15:02 → 3SUR 17:17
PROVIDERS: ADMIT Surgery Plastic and Reconstructive Surgery; ATTEND Surgery Plastic and Reconstructive Surgery
PROC: 0W9G3ZX Drainage of Peritoneal Cavity, Percutaneous Approach, Diagnostic (ICD-10-PCS; principal; 2016-11-19)
DX: C78.6 Secondary malignant neoplasm of retroperitoneum and peritoneum (principal); R18.0 Malignant ascites; N39.0 Urinary tract infection, site not specified; B95.1 Streptococcus, group B, as the cause of diseases classified elsewhere; R00.0 Tachycardia, unspecified; K44.9 Diaphragmatic hernia without obstruction or gangrene; R53.83 Other fatigue; R12 Heartburn; K57.90 Diverticulosis of intestine, part unspecified, without perforation or abscess without bleeding; G89.29 Other chronic pain; M19.90 Unspecified osteoarthritis, unspecified site; G47.30 Sleep apnea, unspecified; Z98.84 Bariatric surgery status; Z85.3 Personal history of malignant neoplasm of breast; Z92.3 Personal history of irradiation; Z82.5 Family history of asthma and other chronic lower respiratory diseases; Z82.49 Family history of ischemic heart disease and other diseases of the circulatory system; Z79.899 Other long term (current) drug therapy; Z82.3 Family history of stroke; Z90.710 Acquired absence of both cervix and uterus; Z90.722 Acquired absence of ovaries, bilateral; Z90.12 Acquired absence of left breast and nipple; Z86.19 Personal history of other infectious and parasitic diseases; Z86.14 Personal history of Methicillin resistant Staphylococcus aureus infection; Z87.09 Personal history of other diseases of the respiratory system; Z78.0 Asymptomatic menopausal state
CPT/HCPCS: 36415; 49083; 71020; 71260; 74177; 76705; 80053; 81001; 82042; 82550; 82553; 82945; 83605; 83735; 84100; 84157; 84484; 85025; 85610; 85730; 87040; 87070; 87075; 87077; 87086; 87186; 87205; 88108; 88305; 88341; 88342; 89050; 93005

== ENCOUNTER 2016-12-06 12:02 | Day surgery (SDC) | payer OTHER ==
[2016-12-05 09:41] VITALS: BMI 34.1
--- NOTE | 2016-12-06 06:43 | HP ---
This is a 56-year-old pleasant female. She came to see me in my office, referred by Dr. Alaniz at [facility] who is a barbecue cook and he has scheduled this patient for ovarian cancer surgery. I was requested to place a vena cava filter prior to surgery. She does have history of PE, which was diagnosed by CAT scan and she was put on Lovenox b.i.d. She had ultrasound of the both legs at [facility], which was negative for DVT. MEDICAL HISTORY: No history of diabetes, hypertension. SURGICAL HISTORY: 1. Patient had a gastric bypass in the past. 2. Patient has a lumpectomy and radiation of the breast on the left side. On examination, neck is supple. No bruit appreciated. Patient had a ascites fluid removed about 5.7 L at [facility], which was positive for carcinomatosis. Chest is clear on auscultation. Abdomen is protuberant with ascites fluid. Femoral pulses are present. Plan is placement of the filter. Risks, complications, bleeding, infection, thrombosis has been discussed. PRASHANT
[~2016-12-06 12:02] MED LIST: ALPRAZolam 0.25 MG TAB PO PRN; ASPIRIN 325 MG TAB PO STA; SODIUM CHLORIDE 0.9% 1,000 ML in EMPTY BAG 1 BAG IV ONE
[2016-12-06 12:58] LABS: INR 1.1 (<1.1); Prothrombin Time 10.6 sec (9.0-12.0)
[2016-12-06] MEDS ORDERED: MIDAZOLAM 2 MG/2 ML VIAL IV ONE (12:58)
[2016-12-06] MEDS ORDERED: fentaNYL (PF) 50 MCG/ML 2 ML AMP IV ONE (12:58)
[2016-12-06] MEDS ORDERED: LIDOCAINE 2% INJ 20 MG/ML SQ ONE (13:07)
[2016-12-06 14:03] VITALS: RESP 18; TEMP 98.3
[2016-12-06 15:44] VITALS: BP 138/78
[2016-12-06 18:55] VITALS: PULSE 94
--- NOTE | 2016-12-08 11:39 | PCN ---
PREOPERATIVE DIAGNOSIS: Ovarian carcinoma with history of pulmonary embolism. PROCEDURE: 1. Venacavogram. 2. Placement of an Opteaz ( ) filter right femoral approach, ultrasound guided. This patient was brought to the [employer]. Right groin was prepped and draped and drapes applied in the usual sterile manner. 1% Lidocaine was infiltrated. After that, we used an ultrasound. Micropuncture needle in the right common femoral vein. Micropuncture guidewire passed and 4 Macedonian dilator advanced on top of the guidewire. After that, we passed a regular guidewire under fluoroscopy. The guidewire was advanced to the inferior vena cava and we placed a 5 Macedonian sheath. This was flushed with heparin saline. After that, we proceed to place pigtail catheter right up to the power injection. Venacavogram was performed. Both adrenal veins were visualized. Vena cava was visualized. Both iliac veins were visualized. After that, we placed a Cordis sheath and through the sheath we did use the Opteaz filter below the renal vein. Venacavogram was performed. They were in good position. Catheter was removed. Pressures were held. The patient tolerated the procedure well. PRASHANT
--- NOTE | 2016-12-08 14:06 | DS ---
PREOP DIAGNOSIS: 1. History of pulmonary embolism. 2. Carcinoma of the ovary with ascites. PROCEDURE: Placement of an Optase retrieval filter right femoral approach, ultrasound guided. This patient has history of carcinoma of the ovary diagnosed recently with ascites. The patient also has history of PE. She was on Lovenox which we stopped today for this procedure. Patient had a filter placed the right femoral approach. She tolerated the procedure well. Plan is the patient will go home today. 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 Abdalla at [facility] in [place]. Patient will have four hour bed rest and then will go one hour follow and patient will go home today. [facility] HOSPITALDarinel
--- NOTE | 2016-12-09 10:40 | IR ---
Fluoroscopy HISTORY: Pain 4.2 minutes fluoroscopy time supplied to the referring clinician. 512 intraoperative C-arm images do cument the procedure. See dictated report from vascular surgery.
== END 2016-12-06 18:40 | disposition home or self-care (01) ==
LOC: CATHCVL 12:02 → 3OBS 13:27 → CATHCVL 18:40
PROVIDERS: ATTEND Surgery Vascular Surgery
DX: C56.9 Malignant neoplasm of unspecified ovary (principal); R18.8 Other ascites; C80.0 Disseminated malignant neoplasm, unspecified; Z86.711 Personal history of pulmonary embolism; Z79.01 Long term (current) use of anticoagulants; Z98.84 Bariatric surgery status
CPT/HCPCS: 37191; 85610; C1880; C1769 ×4; C1894; J2001; J2250; J3010

== ENCOUNTER → 2017-04-23 | Outpatient (CLI) | payer OTHER ==
[2017-04-23 12:04] LABS: ALT 35 U/L (9-52); AST 15 U/L (14-36); Alkaline Phosphatase 88 U/L (38-126); Anion Gap 10 mmol/L; Blood Urea Nitrogen 19 mg/dL (7-17); Calcium 9.3 mg/dL (8.4-10.2); Carbon Dioxide 25 mmol/L (22-30); Chloride 107 mmol/L (98-107); Glucose 96 mg/dL (74-99); Magnesium 1.4 mg/dL (1.6-2.3); Non-African American GFR(MDRD) >60 (>60 ml/min/1.73 sqM); Potassium 4.9 mmol/L (3.5-5.1); Sodium 142 mmol/L (137-145); Total Bilirubin 0.3 mg/dL (0.2-1.3); Total Protein 6.8 g/dL (6.3-8.2)
[2017-04-23 12:26] LABS: Anisocytosis Slight; Basophils % (A) 0 %; CH 31.8; CHCM 31.5; Eosinophils % (A) 1 %; HCT 29.3 % (34.0-46.0); HDW 3.26; HGB 9.2 gm/dL (11.4-16.0); Hypochromasia Moderate; Luc % (Auto) 3; Lymphocytes # (A) 1.2 k/uL (1.0-4.8); Lymphocytes % (A) 40 %; MCH 31.9 pg (25.0-35.0); MCHC 31.5 g/dL (31.0-37.0); MCV 101.3 fL (80.0-100.0); Macrocytosis Slight; Mean Platelet Volume 9.2; Monocytes # (A) 0.2 k/uL (0-1.0); Monocytes % (A) 5 %; Neutrophils # (A) 1.5 k/uL (1.3-7.7); Neutrophils % (A) 50 %; RBC 2.89 m/uL (3.80-5.40); RDW 17.8 % (11.5-15.5); WBC 3.1 k/uL (3.8-10.6); WBC (Perox) 3.05
[2017-04-23 12:49] LABS: Manual Review Performed
== END | disposition home or self-care (01) ==
LOC: LABWHC1 10:20
PROVIDERS: ATTEND Obstetrics & Gynecology
DX: C48.2 Malignant neoplasm of peritoneum, unspecified (principal)
CPT/HCPCS: 36415; 80053; 83735; 85025

== ENCOUNTER → 2017-04-25 | Outpatient (CLI) | payer OTHER ==
[2017-04-25 10:02] LABS: Anisocytosis Slight; Basophils % (A) 0 %; CH 30.9; CHCM 30.7; Eosinophils # (A) 0.1 k/uL (0-0.7); Eosinophils % (A) 2 %; HCT 28.5 % (34.0-46.0); HDW 3.05; HGB 9.2 gm/dL (11.4-16.0); Hypochromasia Moderate; Luc # (Auto) 0.04; Luc % (Auto) 1; Lymphocytes # (A) 1.2 k/uL (1.0-4.8); Lymphocytes % (A) 39 %; MCH 32.4 pg (25.0-35.0); MCHC 32.1 g/dL (31.0-37.0); Macrocytosis Moderate; Mean Platelet Volume 10.7; Monocytes # (A) 0.2 k/uL (0-1.0); Monocytes % (A) 5 %; Neutrophils # (A) 1.6 k/uL (1.3-7.7); Neutrophils % (A) 52 %; RBC 2.83 m/uL (3.80-5.40); RDW 19.1 % (11.5-15.5); WBC 3.1 k/uL (3.8-10.6); WBC (Perox) 3.14
[2017-04-25 10:24] LABS: Manual Review Performed
[2017-04-25 11:01] LABS: ALT 30 U/L (9-52); AST 15 U/L (14-36); Alkaline Phosphatase 94 U/L (38-126); Anion Gap 12 mmol/L; Blood Urea Nitrogen 14 mg/dL (7-17); Calcium 9.4 mg/dL (8.4-10.2); Carbon Dioxide 22 mmol/L (22-30); Chloride 106 mmol/L (98-107); Glucose 103 mg/dL (74-99); Magnesium 1.4 mg/dL (1.6-2.3); Non-African American GFR(MDRD) >60 (>60 ml/min/1.73 sqM); Potassium 4.5 mmol/L (3.5-5.1); Sodium 140 mmol/L (137-145); Total Bilirubin 0.3 mg/dL (0.2-1.3)
== END ==
LOC: LABWHC1 09:27
PROVIDERS: ATTEND Obstetrics & Gynecology
DX: C48.2 Malignant neoplasm of peritoneum, unspecified (principal)
CPT/HCPCS: 36415; 80053; 83735; 85025

== ENCOUNTER → 2017-05-23 | Outpatient (CLI) | payer OTHER ==
[2017-05-23 09:52] LABS: Anisocytosis Slight; Basophils % (A) 1 %; CH 31.4; CHCM 31.1; Eosinophils % (A) 0 %; HDW 3.24; HGB 9.4 gm/dL (11.4-16.0); Hypochromasia Moderate; Luc # (Auto) 0.07; Luc % (Auto) 3; Lymphocytes # (A) 0.9 k/uL (1.0-4.8); Lymphocytes % (A) 33 %; MCH 31.8 pg (25.0-35.0); MCHC 31.3 g/dL (31.0-37.0); MCV 101.5 fL (80.0-100.0); Macrocytosis Moderate; Mean Platelet Volume 8.8; Monocytes # (A) 0.2 k/uL (0-1.0); Monocytes % (A) 8 %; Neutrophils # (A) 1.5 k/uL (1.3-7.7); Neutrophils % (A) 55 %; RBC 2.95 m/uL (3.80-5.40); RDW 19.5 % (11.5-15.5); WBC 2.7 k/uL (3.8-10.6); WBC (Perox) 3.13
[2017-05-23 10:07] LABS: ALT 30 U/L (9-52); AST 16 U/L (14-36); Alkaline Phosphatase 98 U/L (38-126); Anion Gap 12 mmol/L; Blood Urea Nitrogen 14 mg/dL (7-17); Calcium 9.2 mg/dL (8.4-10.2); Carbon Dioxide 26 mmol/L (22-30); Chloride 102 mmol/L (98-107); Glucose 100 mg/dL (74-99); Magnesium 1.5 mg/dL (1.6-2.3); Non-African American GFR(MDRD) >60 (>60 ml/min/1.73 sqM); Potassium 4.7 mmol/L (3.5-5.1); Sodium 140 mmol/L (137-145); Total Bilirubin 0.3 mg/dL (0.2-1.3); Total Protein 7.1 g/dL (6.3-8.2)
== END | disposition home or self-care (01) ==
LOC: LABWHC1 09:24
PROVIDERS: ATTEND Family Medicine
DX: C48.2 Malignant neoplasm of peritoneum, unspecified (principal)
CPT/HCPCS: 36415; 80053; 83735; 85025; 86304

== ENCOUNTER → 2017-07-31 | Outpatient (CLI) | payer OTHER ==
--- NOTE | 2017-07-31 15:19 | US ---
EXAMINATION TYPE: US bladder DATE OF EXAM: 07/31/2017 COMPARISON: CT abdomen and pelvis November 18, 2016 CLINICAL HISTORY: R30.1 painful bladder spasm. Hx ovarian cancer ended treatment 05/2017 EXAM MEASUREMENTS: Post Void Residual Volume: 4.9 mL Color Doppler performed to assess ureteral jets. Bilateral Jets seen: Yes Normal Post Void Residual (less than 50ml): Yes Bladder is not greatly distended and is thus suboptimally evaluated. IMPRESSION: No abnormal post void residual is present.
== END | disposition home or self-care (01) ==
LOC: RADUSWWP 13:34
PROVIDERS: ATTEND Family Medicine
DX: N32.89 Other specified disorders of bladder (principal)
CPT/HCPCS: 76857

== ENCOUNTER 2018-06-09 14:11 | Emergency (ER) | payer BC ==
[2018-06-09] MEDS ORDERED: SODIUM CHLORIDE 0.9% 1,000 ML IV STA (14:21)
--- NOTE | 2018-06-09 15:01 | ED ---
Recheck HPI - General Chief Complaint: Recheck/Abnormal Lab/Rx Stated Complaint: Sent by dr low hemoglobin Time Seen by Provider: 06/09/18 14:20 Source: patient, RN notes reviewed, old records reviewed Mode of arrival: wheelchair Limitations: no limitations - History of Present Illness Initial Comments: This is a 58-year-old female the ER for evaluation. Patient presented for evaluation regards to low hemoglobin. Patient outpatient lab test show hemoglobin the number of 6. Patient denies feelings of lightheadedness dizziness or near syncope. Patient states this is this issue for her for quite some time secondary to her breast cancer and radiation.. Patient has had multiple transfusions she gets transfusions with ascites and drainage. Patient still does feel weak MD Complaint: abnormal lab (Anemia) -: unknown Returns Today for: Called Because of Abnormal Lab/Test Symptoms Since Prior Visit: no new symptoms Context: called for abnormal lab result Associated Symptoms: malaise - Related Data Home Medications Medication Instructions Recorded Confirmed Multivitamins, Thera [Multivitamin 1 tab PO QAM 08/27/16 06/09/18 (formulary)] Lansoprazole [Prevacid] 30 mg PO DAILY 11/18/16 06/09/18 HYDROcodone/APAP 5-325MG [[place] 2 tab PO Q4HR PRN 12/05/16 06/09/18 5-325] Allergies Allergy/AdvReac Type Severity Reaction Status Date / Time paclitaxel [From Taxol] Allergy Anaphylaxis Verified 06/09/18 14:45 Review of Systems ROS Statement: Those systems with pertinent positive or pertinent negative responses have been documented in the HPI. ROS Other: All systems not noted in ROS Statement are negative. 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 Past Anesthesia/Blood Transfusion Reactions: No Reported Reaction Additional Past Anesthesia/Blood Transfusion Reaction / Comment(s): HX clausterphobia Past Psychological History: No Psychological Hx Reported Smoking Status: Never smoker Past Alcohol Use History: None Reported Past Drug Use History: None Reported - Past Family History Mother Family Medical History: No Reported History Father Family Medical History: Hypertension General Exam Limitations: no limitations General appearance: alert, in no apparent distress Head exam: Present: atraumatic, normocephalic, normal inspection Eye exam: Present: normal appearance, PERRL, EOMI. Absent: scleral icterus, conjunctival injection, periorbital swelling ENT exam: Present: normal exam, mucous membranes moist Neck exam: Present: normal inspection. Absent: tenderness, meningismus, lymphadenopathy Respiratory exam: Present: normal lung sounds bilaterally. Absent: respiratory distress, wheezes, rales, rhonchi, stridor Cardiovascular Exam: Present: regular rate, normal rhythm, normal heart sounds. Absent: systolic murmur, diastolic murmur, rubs, gallop, clicks GI/Abdominal exam: Present: soft, normal bowel sounds. Absent: distended, tenderness, guarding, rebound, rigid Extremities exam: Present: normal inspection, full ROM, normal capillary refill. Absent: tenderness, pedal edema, joint swelling, calf tenderness Back exam: Present: normal inspection Neurological exam: Present: alert, oriented X3, CN II-XII intact Psychiatric exam: Present: normal affect, normal mood Skin exam: Present: warm, dry, intact, normal color. Absent: rash Course Vital Signs 06/09/18 14:13 Temperature 98.0 F Pulse Rate 118 H Respiratory 18 Rate Blood Pressure 119/81 O2 Sat by Pulse 100 Oximetry - Reevaluation(s) Reevaluation #1: 06/09/18 16:17 Medical record is reviewed and noncontributory Reevaluation #2: 06/09/18 16:17 Patient states her heart rate is always over 100 Reevaluation #3: 06/09/18 16:17 Patient will be given transfusion here in the emergency room and discharged home after monitor Medical Decision Making - Medical Decision Making 58 female the ER for evaluation, patient presented today for anemia, patient will be transfused here in the emergency room and can be discharged - Lab Data Result diagrams: 06/09/18 14:36 06/09/18 14:36 Lab Results 06/09/18 06/09/18 06/09/18 Range/Units 14:34 14:36 14:36 WBC 4.3 (3.8-10.6) k/uL RBC 2.01 L (3.80-5.40) m/uL Hgb 6.3 L* (11.4-16.0) gm/dL Hct 19.8 L* (34.0-46.0) % MCV 98.7 (80.0-100.0) fL MCH 31.2 (25.0-35.0) pg MCHC 31.6 (31.0-37.0) g/dL RDW 24.1 H (11.5-15.5) % Plt Count 125 L (150-450) k/uL PT (9.0-12.0) sec INR (<1.2) APTT (22.0-30.0) sec Sodium (137-145) mmol/L Potassium (3.5-5.1) mmol/L Chloride (98-107) mmol/L Carbon Dioxide (22-30) mmol/L Anion Gap mmol/L BUN (7-17) mg/dL Creatinine (0.52-1.04) mg/dL Est GFR (CKD-EPI)AfAm (>60 ml/min/1.73 sqM) Est GFR (CKD-EPI)NonAf (>60 ml/min/1.73 sqM) Glucose (74-99) mg/dL Calcium (8.4-10.2) mg/dL Magnesium (1.6-2.3) mg/dL Total Bilirubin (0.2-1.3) mg/dL AST (14-36) U/L ALT (9-52) U/L Alkaline Phosphatase (38-126) U/L Total Creatine Kinase <20 L (30-135) U/L CK-MB (CK-2) <0.2 (0.0-2.4) ng/mL CK-MB (CK-2) Rel Index Troponin I <0.012 (0.000-0.034) ng/mL Total Protein (6.3-8.2) g/dL Albumin (3.5-5.0) g/dL Blood Type Blood Type Confirm A Positive Blood Type Recheck Antibody Screen Crossmatch Spec Expiration Date 06/09/18 06/09/18 06/09/18 Range/Units 14:36 14:36 14:36 WBC (3.8-10.6) k/uL RBC (3.80-5.40) m/uL Hgb (11.4-16.0) gm/dL Hct (34.0-46.0) % MCV (80.0-100.0) fL MCH (25.0-35.0) pg MCHC (31.0-37.0) g/dL RDW (11.5-15.5) % Plt Count (150-450) k/uL PT 9.7 (9.0-12.0) sec INR 0.9 (<1.2) APTT 20.7 L (22.0-30.0) sec Sodium 137 (137-145) mmol/L Potassium 4.5 (3.5-5.1) mmol/L Chloride 100 (98-107) mmol/L Carbon Dioxide 25 (22-30) mmol/L Anion Gap 12 mmol/L BUN 15 (7-17) mg/dL Creatinine 0.74 (0.52-1.04) mg/dL Est GFR (CKD-EPI)AfAm >90 (>60 ml/min/1.73 sqM) Est GFR (CKD-EPI)NonAf 90 (>60 ml/min/1.73 sqM) Glucose 130 H (74-99) mg/dL Calcium 8.8 (8.4-10.2) mg/dL Magnesium 1.6 (1.6-2.3) mg/dL Total Bilirubin 0.3 (0.2-1.3) mg/dL AST 18 (14-36) U/L ALT 15 (9-52) U/L Alkaline Phosphatase 135 H (38-126) U/L Total Creatine Kinase (30-135) U/L CK-MB (CK-2) (0.0-2.4) ng/mL CK-MB (CK-2) Rel Index Troponin I (0.000-0.034) ng/mL Total Protein 6.5 (6.3-8.2) g/dL Albumin 3.6 (3.5-5.0) g/dL Blood Type A Positive Blood Type Confirm Blood Type Recheck CABO Indicated Antibody Screen NEGATIVE Crossmatch See Detail Spec Expiration Date 06/12/2018 9150 - EKG Data -: EKG Interpreted by Me (EKG shows sinus tachycardia rate 119, WV 1:30, QRS 84 , QTC 441) Disposition Clinical Impression: Anemia Disposition: HOME SELF-CARE Condition: Good Instructions: Anemia (ED) Is patient prescribed a controlled substance at d/c from ED?: No Referrals: Erich Fisher MD [Primary Care Provider] - 1-2 days
[2018-06-09 15:11] LABS: Anisocytosis Marked; Hypochromasia Marked; Macrocytosis Moderate; Poikilocytosis Slight
[2018-06-09 15:14] LABS: INR 0.9 (<1.2); Prothrombin Time 9.7 sec (9.0-12.0)
[2018-06-09 15:17] LABS: ALT 15 U/L (9-52); AST 18 U/L (14-36); Albumin 3.6 g/dL (3.5-5.0); Alkaline Phosphatase 135 U/L (38-126); Anion Gap 12 mmol/L; Blood Urea Nitrogen 15 mg/dL (7-17); Calcium 8.8 mg/dL (8.4-10.2); Carbon Dioxide 25 mmol/L (22-30); Chloride 100 mmol/L (98-107); Glucose 130 mg/dL (74-99); Magnesium 1.6 mg/dL (1.6-2.3); Potassium 4.5 mmol/L (3.5-5.1); Sodium 137 mmol/L (137-145); Total Bilirubin 0.3 mg/dL (0.2-1.3); Total Protein 6.5 g/dL (6.3-8.2)
[2018-06-09 15:20] LABS: Partial Thromboplastin Time 20.7 sec (22.0-30.0)
[2018-06-09 15:25] LABS: MCH 31.2 pg (25.0-35.0); MCHC 31.6 g/dL (31.0-37.0); MCV 98.7 fL (80.0-100.0); Mean Platelet Volume 9.3; Platelet Count 125 k/uL (150-450); RBC 2.01 m/uL (3.80-5.40); RDW 24.1 % (11.5-15.5); WBC 4.3 k/uL (3.8-10.6)
[2018-06-09 15:26] LABS: Creatine Kinase <20 U/L (30-135)
[2018-06-09 15:28] LABS: HCT 19.8 % (34.0-46.0); HGB 6.3 gm/dL (11.4-16.0)
[2018-06-09 15:39] LABS: Creatine Kinase MB <0.2 ng/mL (0.0-2.4); Troponin I <0.012 ng/mL (0.000-0.034)
[2018-06-09 16:21] LABS: Lymphocytes # (M) 1.25 k/uL (1.0-4.8); Monocytes # (M) 0.13 k/uL (0-1.0); Neutrophils # (M) 2.92 k/uL (1.3-7.7); Neutrophils % (M) 68 %; Nucleated Red Blood Cells 0 /100 WBC (0-0); Total Cells Counted 100
[2018-06-09 16:22] LABS: Polychromasia Present
[2018-06-09] MEDS ORDERED: HYDROcodone/APAP 5-325MG 1 EACH TAB PO STA (16:30)
[2018-06-09 18:51] VITALS: PULSE 98
[2018-06-09 18:56] VITALS: BP 121/81; RESP 18; TEMP 98.6
== END 2018-06-09 19:09 | disposition home or self-care (01) ==
LOC: EC 14:11
DX: D64.9 Anemia, unspecified (principal); R00.0 Tachycardia, unspecified; C48.2 Malignant neoplasm of peritoneum, unspecified; Z88.8 Allergy status to other drugs, medicaments and biological substances; Z79.899 Other long term (current) drug therapy; Z87.19 Personal history of other diseases of the digestive system; Z85.3 Personal history of malignant neoplasm of breast; Z92.3 Personal history of irradiation; Z87.09 Personal history of other diseases of the respiratory system; Z98.890 Other specified postprocedural states; Z82.49 Family history of ischemic heart disease and other diseases of the circulatory system
CPT/HCPCS: 36415; 93005; 86900; 86901; 80053; 82550; 82553; 83735; 84484; 85025; 85610; 85730; 86850; 86920; 99284; 96360; 96361 ×3; P9016

== ENCOUNTER 2018-06-22 12:37 | Inpatient (IN) | payer BC ==
[2018-06-22] MEDS ORDERED: SODIUM CHLORIDE 0.9% 1,000 ML IV STA (13:01)
[2018-06-22] MEDS ORDERED: ACETAMINOPHEN TAB 500 MG TAB PO STA (13:01)
[2018-06-22] MEDS ORDERED: CEFEPIME 2 GM in SODIUM CHLORIDE 0.9% 50 ML IVPB STA (13:05)
[2018-06-22] MEDS ORDERED: VANCOMYCIN IV PER PHARMACY 1 EACH MISC MISCELLANE PRN (13:06)
[2018-06-22] MEDS ORDERED: MORPHINE SULFATE 4 MG/ML SYRINGE IVP STA ×2 (13:16→14:20)
[2018-06-22] MEDS ORDERED: SODIUM CHLORIDE 0.9% 1,000 ML IV ONE (13:17)
--- NOTE | 2018-06-22 13:21 | ED ---
General Adult HPI - General Chief complaint: Recheck/Abnormal Lab/Rx Stated complaint: SOB Time Seen by Provider: 06/22/18 13:01 Source: patient, RN notes reviewed, old records reviewed Mode of arrival: wheelchair Limitations: no limitations - History of Present Illness Initial comments: 58-year-old female presented for evaluation of fever, pain and swelling in the left anterior thigh, right hip, and left forearm. Patient reports fever or chills. She is currently on chemotherapy for ovarian cancer. Last chemotherapy was June 11. She did receive blood transfusion approximately 2 weeks ago, she has pain and swelling in the site of this transfusion left upper extremity. She also noted bruise to the anterior thigh which was quite significant and painful, began bleeding after minor trauma yesterday. She is a third lesion on her right lateral hip. She also has history of ascites treated with paracentesis. Denies worsening or changing abdominal pain. Denies nausea vomiting. Denies cough or URI symptoms. - Related Data Home Medications Medication Instructions Recorded Confirmed Multivitamins, Thera [Multivitamin 1 tab PO QAM 08/27/16 06/22/18 (formulary)] Lansoprazole [Prevacid] 30 mg PO DAILY 11/18/16 06/22/18 HYDROcodone/APAP 5-325MG [[place] 2 tab PO Q4HR PRN 12/05/16 06/22/18 5-325] Ondansetron HCl [Zofran] 1 tab PO DAILY PRN 06/22/18 06/22/18 Polyethylene Glycol 3350 [Miralax] 17 gm PO Q12HR 06/22/18 06/22/18 Prochlorperazine [Compazine] 10 mg PO TID PRN 06/22/18 06/22/18 Zolpidem Tartrate [Ambien Cr] 12.5 mg PO HS PRN 06/22/18 06/22/18 Allergies Allergy/AdvReac Type Severity Reaction Status Date / Time paclitaxel [From Taxol] Allergy Anaphylaxis Verified 06/22/18 13:12 Review of Systems ROS Statement: Those systems with pertinent positive or pertinent negative responses have been documented in the HPI. ROS Other: All systems not noted in ROS Statement are negative. 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 Past Anesthesia/Blood Transfusion Reactions: No Reported Reaction Additional Past Anesthesia/Blood Transfusion Reaction / Comment(s): HX clausterphobia Past Psychological History: No Psychological Hx Reported Smoking Status: Never smoker Past Alcohol Use History: None Reported Past Drug Use History: None Reported - Past Family History Mother Family Medical History: No Reported History Father Family Medical History: Hypertension General Exam Limitations: no limitations General appearance: alert, in no apparent distress Head exam: Present: atraumatic, normocephalic Eye exam: Present: normal appearance, PERRL ENT exam: Present: normal exam Respiratory exam: Present: normal lung sounds bilaterally. Absent: respiratory distress Cardiovascular Exam: Present: normal rhythm, tachycardia GI/Abdominal exam: Present: soft, distended. Absent: tenderness, guarding Extremities exam: Present: other (10 cm area of induration and swelling left anterior thigh, there is a central hematoma which is not bleeding, mild. There is significant surrounding cellulitis, minimal drainage. Left forearm, antecubital fossa, cellulitis, induration, no fluctuance or drainable abscess appreciated on exam. Right lateral hip, 3 cm area of erythema, induration, and central eschar) Back exam: Present: normal inspection Neurological exam: Present: alert, oriented X3, CN II-XII intact. Absent: motor sensory deficit Psychiatric exam: Present: normal affect, normal mood Skin exam: Present: warm. Absent: cyanosis, diaphoretic Course Vital Signs 06/22/18 06/22/18 06/22/18 12:42 12:58 13:33 Temperature 99.8 F H 101.1 F H Pulse Rate 144 H 129 H 123 H Respiratory 20 18 18 Rate Blood Pressure 104/73 127/87 124/79 O2 Sat by Pulse 100 100 97 Oximetry 06/22/18 14:31 Temperature Pulse Rate 114 H Respiratory 18 Rate Blood Pressure 120/73 O2 Sat by Pulse 97 Oximetry EKG Findings - EKG Comments: EKG Findings:: EKG: Sinus tachycardia, LVH, artifact throughout the precordium, however no definitive signs of ischemia. No ST segment elevation. Rate of 1:30 , TX interval 114, QRS duration 86, QTC 414. Medical Decision Making - Medical Decision Making 58-year-old female presenting with fever, tachycardia, and multiple skin lesions as well as draining abscess in the left anterior thigh. There is concern for bacteremia as patient is currently on chemotherapy. Cultures are obtained both of the wound and nikko. CBC reveals leukopenia at 3.5 with absolute neutrophil count of 2.8. Hemoglobin 7.5 which is stable and improved from previous. Normal CMP. Urinalysis is pending. Chest x-ray negative for focal pneumonia. Patient is placed on cefepime and vancomycin in the emergency department. Case is discussed with admitting physician who will accept. I will ask General surgery to see this patient for possible drainage although at this time I do not feel that these abscesses are drainable. The abscess with cellulitis in the left thigh is freely draining. There is no fluctuance at either other location. Infectious disease placed on consult. Diagnosis: Abscess with cellulitis, infected hematoma, sepsis. - Lab Data Result diagrams: 06/22/18 13:00 06/22/18 13:00 Lab Results 06/22/18 06/22/18 06/22/18 Range/Units 13:00 13:00 13:00 WBC 3.5 L (3.8-10.6) k/uL RBC 2.34 L (3.80-5.40) m/uL Hgb 7.5 L (11.4-16.0) gm/dL Hct 22.8 L (34.0-46.0) % MCV 97.4 (80.0-100.0) fL MCH 31.9 (25.0-35.0) pg MCHC 32.8 (31.0-37.0) g/dL RDW 19.8 H (11.5-15.5) % Plt Count 46 L D (150-450) k/uL Neutrophils % 81 % Lymphocytes % 14 % Monocytes % 3 % Eosinophils % 0 % Basophils % 0 % Neutrophils # 2.8 (1.3-7.7) k/uL Lymphocytes # 0.5 L (1.0-4.8) k/uL Monocytes # 0.1 (0-1.0) k/uL Eosinophils # 0.0 (0-0.7) k/uL Basophils # 0.0 (0-0.2) k/uL Manual Slide Review Performed Hypochromasia Slight Poikilocytosis Slight Anisocytosis Slight Macrocytosis Slight Rouleaux Present PT (9.0-12.0) sec INR (<1.2) APTT (22.0-30.0) sec Sodium 135 L (137-145) mmol/L Potassium 3.5 (3.5-5.1) mmol/L Chloride 95 L (98-107) mmol/L Carbon Dioxide 26 (22-30) mmol/L Anion Gap 14 mmol/L BUN 22 H (7-17) mg/dL Creatinine 0.78 (0.52-1.04) mg/dL Est GFR (CKD-EPI)AfAm >90 (>60 ml/min/1.73 sqM) Est GFR (CKD-EPI)NonAf 84 (>60 ml/min/1.73 sqM) Glucose 138 H (74-99) mg/dL Plasma Lactic Acid Esau (0.7-2.0) mmol/L Calcium 8.8 (8.4-10.2) mg/dL Total Bilirubin 0.9 (0.2-1.3) mg/dL AST 19 (14-36) U/L ALT 23 (9-52) U/L Alkaline Phosphatase 147 H (38-126) U/L Total Protein 6.7 (6.3-8.2) g/dL Albumin 3.6 (3.5-5.0) g/dL Influenza Type A RNA (Not Detectd) Influenza Type B (PCR) (Not Detectd) Blood Type A Positive Blood Type Recheck No Antibody Screen NEGATIVE Spec Expiration Date 06/25/2018 - 229906/22/18 06/22/18 06/22/18 Range/Units 13:00 13:00 13:34 WBC (3.8-10.6) k/uL RBC (3.80-5.40) m/uL Hgb (11.4-16.0) gm/dL Hct (34.0-46.0) % MCV (80.0-100.0) fL MCH (25.0-35.0) pg MCHC (31.0-37.0) g/dL RDW (11.5-15.5) % Plt Count (150-450) k/uL Neutrophils % % Lymphocytes % % Monocytes % % Eosinophils % % Basophils % % Neutrophils # (1.3-7.7) k/uL Lymphocytes # (1.0-4.8) k/uL Monocytes # (0-1.0) k/uL Eosinophils # (0-0.7) k/uL Basophils # (0-0.2) k/uL Manual Slide Review Hypochromasia Poikilocytosis Anisocytosis Macrocytosis Rouleaux PT 9.6 (9.0-12.0) sec INR 0.9 (<1.2) APTT 23.0 (22.0-30.0) sec Sodium (137-145) mmol/L Potassium (3.5-5.1) mmol/L Chloride (98-107) mmol/L Carbon Dioxide (22-30) mmol/L Anion Gap mmol/L BUN (7-17) mg/dL Creatinine (0.52-1.04) mg/dL Est GFR (CKD-EPI)AfAm (>60 ml/min/1.73 sqM) Est GFR (CKD-EPI)NonAf (>60 ml/min/1.73 sqM) Glucose (74-99) mg/dL Plasma Lactic Acid Esau 1.9 (0.7-2.0) mmol/L Calcium (8.4-10.2) mg/dL Total Bilirubin (0.2-1.3) mg/dL AST (14-36) U/L ALT (9-52) U/L Alkaline Phosphatase (38-126) U/L Total Protein (6.3-8.2) g/dL Albumin (3.5-5.0) g/dL Influenza Type A RNA Not Detected (Not Detectd) Influenza Type B (PCR) Not Detected (Not Detectd) Blood Type Blood Type Recheck Antibody Screen Spec Expiration Date Critical Care Time Critical Care Time: Yes Total Critical Care Time: 35 Disposition Clinical Impression: Sepsis, Cellulitis and abscess of left leg, Leukopenia Disposition: ADMITTED IP TO THIS [facility] Condition: Serious Is patient prescribed a controlled substance at d/c from ED?: No Referrals: Erich Fisher MD [Primary Care Provider] - 1-2 days Decision to Admit Reason: Admit from EC Decision Date: 06/22/18 Decision Time: 15:49
[2018-06-22] MEDS ORDERED: VANCOMYCIN 1,500 MG in SODIUM CHLORIDE 0.9% 250 ML IVPB ONE (13:30)
[2018-06-22 13:34] LABS: Anisocytosis Slight; Basophils % (A) 0 %; Eosinophils % (A) 0 %; HCT 22.8 % (34.0-46.0); HGB 7.5 gm/dL (11.4-16.0); Hypochromasia Slight; Lymphocytes # (A) 0.5 k/uL (1.0-4.8); Lymphocytes % (A) 14 %; MCH 31.9 pg (25.0-35.0); MCHC 32.8 g/dL (31.0-37.0); MCV 97.4 fL (80.0-100.0); Macrocytosis Slight; Monocytes # (A) 0.1 k/uL (0-1.0); Monocytes % (A) 3 %; Neutrophils # (A) 2.8 k/uL (1.3-7.7); Neutrophils % (A) 81 %; Poikilocytosis Slight; RBC 2.34 m/uL (3.80-5.40); RDW 19.8 % (11.5-15.5); WBC 3.5 k/uL (3.8-10.6)
[2018-06-22 13:45] LABS: ALT 23 U/L (9-52); AST 19 U/L (14-36); Albumin 3.6 g/dL (3.5-5.0); Alkaline Phosphatase 147 U/L (38-126); Anion Gap 14 mmol/L; Blood Urea Nitrogen 22 mg/dL (7-17); Calcium 8.8 mg/dL (8.4-10.2); Carbon Dioxide 26 mmol/L (22-30); Chloride 95 mmol/L (98-107); Glucose 138 mg/dL (74-99); INR 0.9 (<1.2); Potassium 3.5 mmol/L (3.5-5.1); Prothrombin Time 9.6 sec (9.0-12.0); Sodium 135 mmol/L (137-145); Total Bilirubin 0.9 mg/dL (0.2-1.3); Total Protein 6.7 g/dL (6.3-8.2)
--- NOTE | 2018-06-22 13:53 | XR ---
EXAMINATION TYPE: XR chest 2V DATE OF EXAM: 06/22/2018 COMPARISON: 11/18/2016 HISTORY: 58-year-old female with cough and fever TECHNIQUE: PA and lateral views FINDINGS: Low lung volumes with crowded vascular markings. Heart upper limits of normal in size. Aorta and pulm onary vasculature within normal limits. Multiple surgical clips on the left axilla. No consolidation or pleural effusion. IMPRESSION: Some hypoventilatory changes without acute cardiopulmonary process.
[2018-06-22 14:02] LABS: Rouleaux Present
[2018-06-22 14:03] LABS: Platelet Count 46 k/uL (150-450)
[2018-06-22] MEDS ORDERED: NALOXONE 0.4 MG/ML 1 ML VIAL IV PRN (15:43)
[2018-06-22] MEDS ORDERED: ACETAMINOPHEN TAB 325 MG TAB PO PRN (15:43)
[2018-06-22] MEDS: MORPHINE SULFATE 4 MG/ML SYRINGE IV PRN ×2 (19:11→23:39)
[2018-06-22] MEDS ORDERED: PROCHLORPERAZINE 10 MG TAB PO PRN (20:09)
[2018-06-22] MEDS: VANCOMYCIN 1,500 MG in SODIUM CHLORIDE 0.9% 250 ML IVPB SCH (21:47)
[2018-06-22] MEDS: POLYETHYLENE GLYCOL 3350 17 GM POWD.PACK PO SCH (21:49)
[2018-06-22] MEDS: SODIUM CHLORIDE 0.9% 1,000 ML IV SCH (21:50)
[2018-06-22] MEDS: HYDROcodone/APAP 5-325MG 1 EACH TAB PO PRN (22:00)
[2018-06-22] MEDS: ZOLPIDEM 5 MG TAB PO PRN (23:39)
--- NOTE | 2018-06-23 00:06 | HP ---
HISTORY AND PHYSICAL DATE OF ADMISSION: 06/22/2018. DATE OF SERVICE: 06/22/2018. PRESENTING COMPLAINT: Infected hematoma. HISTORY OF PRESENTING COMPLAINT: This is a very pleasant 58-year-old patient who follows with Dr. Fisher. Chronic stable medical conditions include GERD, osteoarthritis, hiatal hernia, diverticulosis. The patient has been diagnosed with ovarian cancer. Has been going undergoing chemotherapy by Dr. Alaniz. Last chemotherapy was on June 11. The patient also getting monthly paracenteses. The patient, 1 week ago, had an IV access in the left forearm just be on the antecubital fossa. That area became a little bit inflamed. About 20 days this ago she hit herself on the anterior thigh and that developed a hematoma, progressed to become red and inflamed. She also fell in the bathroom and has bruising just below the right hip with hematoma there. This also became infected, painful and tender. The patient has had fevers. These have started to breakdown, especially the one on the thigh and the right hip. The patient presented to the ER. The patient has been having fever and tachycardia. The patient was started on IV cefepime and vancomycin in the ER, admitted for the same. Otherwise patient's appetite has been okay. Weight has been stable. No trouble with the bowels. The patient was admitted with sepsis. REVIEW OF SYSTEMS: CONSTITUTIONAL: Weak, tired, febrile. HEENT: None. RESPIRATORY: None. GASTROINTESTINAL: None. GENITOURINARY: None. MUSCULOSKELETAL: None. DERMATOLOGICAL: None. LYMPHATIC: None. PSYCHIATRY: None. NEUROLOGICAL: None. 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 PAST SURGICAL HISTORY: Adenoidectomy, bariatric surgery, bladder surgery, breast surgery, hysterectomy, tonsillectomy, left breast lumpectomy, radiation 2000, hysterectomy, uvula removed due to sleep apnea, right knee meniscus repair, IVC filter in 2017, abdominal exploratory surgery. SOCIAL HISTORY: . The patient's works out in [place] [employer]. A nephew is staying with the patient. No smoking. No alcohol. FAMILY HISTORY: Emphysema. HOME MEDICATIONS: 1. Ambien 12.5 p.o. at bedtime p.r.n. 2. MiraLAX 17 grams p.o. every 12. 3. Multivitamin 1 tablet p.o. daily. 4. Prevacid 30 mg mg p.o. daily. 5. [place] 5 2 tablets p.o. every 4h p.r.n. 6. Compazine 10 mg p.o. t.i.d. p.r.n. 7. Zofran 1 tablet p.o. daily p.r.n. ALLERGIES: TAXOL. EXAM: Temperature 101.1, pulse 129, respiratory rate 18, blood pressure 127/87, pulse ox 100 percent on room air. GENERAL: Average built, sitting up, not in distress. EYES: Pupils equal. Conjunctivae normal. Wearing eyeglasses. HEENT: External appearance ears and nose normal. Oral cavity normal. NECK: JVD not raised. Mass not palpable. Respiratory effort normal. LUNGS: Clear. CARDIOVASCULAR: 1st and 2nd sounds. No edema. ABDOMEN: Soft, nontender. Liver and spleen not palpable. LYMPHATIC: No lymph nodes palpable in the neck or axillae. PSYCHIATRY: Alert and oriented x3. Mood and affect normal. DERMATOLOGIC: The patient has an area of inflamed redness, raised, just distal to the antecubital fossa in the left forearm. Also there is a large very tender spot on the anterior part of the thigh where the roof has broken down and very angry appearing. Also, there is an area of infected appears to be hematoma with again the roof is slightly broken down on the right thigh laterally. INVESTIGATIONS: White count 3.5, hemoglobin 7.5, platelets 46,000, lymphocytes 0.5, potassium 3.5, BUN 22, creatinine 0.78. Influenza A and B negative. EKG tracing personally reviewed by me shows sinus tachycardia with some poor baseline. Chest x-ray film personally reviewed by me shows no obvious infiltrates. ASSESSMENT: 1. Multiple areas of hematoma secondarily infected causing sepsis likely due to poor cellular immunity due to chemotherapy. 2. Pancytopenia due to chemotherapy. 3. Ovarian cancer. Patient undergoing chemotherapy by Dr. Alaniz. 4. Gastroesophageal reflux disease. 5. Primary osteoarthritis. 6. History of pulmonary embolism with inferior vena cava. 7. Scheduled monthly paracenteses. 8. Hiatal hernia. 9. Colonic diverticulosis. PLAN: Patient is started on IV cefepime and vancomycin. Blood cultures will be sent. Home medications are resumed. Also patient will be given IV fluids. Infectious Disease will be consulted. Currently, just a dry dressing has been put on the wounds. Care was discussed the patient. Questions were answered. MMODL / IJN: [id number] /
[2018-06-23] MEDS: HYDROcodone/APAP 5-325MG 1 EACH TAB PO PRN ×6 (02:31→23:45)
[2018-06-23] MEDS: CEFEPIME 2 GM in SODIUM CHLORIDE 0.9% 50 ML IVPB SCH ×3 (02:46→17:59)
[2018-06-23] MEDS: SODIUM CHLORIDE 0.9% 1,000 ML IV SCH (06:53)
[2018-06-23] MEDS: MORPHINE SULFATE 4 MG/ML SYRINGE IV PRN ×4 (06:57→23:13)
[2018-06-23 07:53] LABS: Anisocytosis Moderate; Basophils % (A) 0 %; Eosinophils % (A) 1 %; Hypochromasia Moderate; Lymphocytes # (A) 0.2 k/uL (1.0-4.8); Lymphocytes % (A) 15 %; MCH 32.9 pg (25.0-35.0); MCHC 32.7 g/dL (31.0-37.0); MCV 100.6 fL (80.0-100.0); Macrocytosis Moderate; Monocytes # (A) 0.1 k/uL (0-1.0); Monocytes % (A) 5 %; Neutrophils # (A) 1.2 k/uL (1.3-7.7); Neutrophils % (A) 76 %; Poikilocytosis Slight; RDW 20.1 % (11.5-15.5); WBC 1.5 k/uL (3.8-10.6)
[2018-06-23 08:02] LABS: Platelet Count 36 k/uL (150-450)
[2018-06-23 08:05] LABS: HGB 6.3 gm/dL (11.4-16.0)
[2018-06-23 08:06] LABS: HCT 19.1 % (34.0-46.0)
[2018-06-23 08:07] LABS: Anion Gap 7 mmol/L; Blood Urea Nitrogen 17 mg/dL (7-17); Calcium 8.3 mg/dL (8.4-10.2); Carbon Dioxide 23 mmol/L (22-30); Chloride 105 mmol/L (98-107); Glucose 120 mg/dL (74-99); Potassium 3.6 mmol/L (3.5-5.1); Sodium 135 mmol/L (137-145)
[2018-06-23] MEDS: PANTOPRAZOLE 40 MG TABLET PO SCH (09:09)
[2018-06-23] MEDS: POLYETHYLENE GLYCOL 3350 17 GM POWD.PACK PO SCH ×2 (09:09→22:00)
--- NOTE | 2018-06-23 09:45 | P.CONS ---
History of Present Illness - Reason for Consult Consult date: 06/23/18 Sepsis on chemotherapy - History of Present Illness This is a 58-year-old female gives history of having ovarian cancer currently under chemotherapy receiving her last round which will be completed on July 09. Her last chemotherapy was on June 11. 2 weeks ago patient also received blood transfusion through peripheral line as patient does not have a port. Patient gives history of slipping and falling in her bathroom landing on the shower/tub on June 02. She had sustained a hematoma to the left mid anterior thigh and right hip. When she received blood 2 weeks ago she also had a small hematoma to the left antecubital area. Patient states that she dropped a water bottle on her left thigh and hematoma burst open and started draining. All 3 hematomas have increased in size, warmth and erythema. Patient came into [facility] emergency center for evaluation. She was found to be febrile with a temperature of 101.1 with tachycardia. Initial white count 3.5 and repeat 1.5, hemoglobin 6.3 and platelet count 36. Creatinine 0.64. Influenza testing was negative. She has 2 blood cultures obtained and a wound culture showing few polymorphonuclear leukocytes, no organisms seen and no growth at 24 hours. Chest x-ray showed hypoventilation changes without acute cardiopulmonary process. Patient was given 2 L of IV fluids, cefepime and vancomycin in the emergency room as well as morphine for pain control and admitted to the [facility] floor. There is a consult in place for Dr. Kelly and Dr. Galeana. Patient has been continued on cefepime and vancomycin. Patient also receives monthly paracentesis. Review of Systems All systems: negative Constitutional: Reports chills, Reports fatigue, Reports fever, Denies anorexia , Denies poor appetite, Denies weight loss Eyes: denies blurred vision, denies pain Ears, nose, mouth and throat: Denies dental pain, Denies dysphagia, Denies headache, Denies hoarseness, Denies mouth pain, Denies nasal congestion, Denies nasal discharge, Denies sore throat, Denies vertigo Cardiovascular: Denies chest pain, Denies decreased exercise tolerance, Denies dyspnea on exertion, Denies edema, Denies leg edema, Denies lightheadedness, Denies shortness of breath, Denies syncope Respiratory: Denies cough, Denies cough with sputum, Denies dyspnea, Denies excessive sputum, Denies hemoptysis, Denies home oxygen, Denies wheezing Gastrointestinal: Denies abdominal pain, Denies diarrhea, Denies loss of appetite, Denies nausea, Denies vomiting Genitourinary: Denies dysuria, Denies hematuria, Denies urinary frequency Musculoskeletal: Denies frequent falls, Denies gait dysfunction, Denies muscle weakness, Denies myalgias Integumentary: Reports color changes, Reports darkening of skin, Reports wounds , Denies pruritus, Denies rash Neurological: Denies aphasia, Denies change in mentation, Denies confusion, Denies gait dysfunction, Denies head injury, Denies headaches, Denies numbness, Denies seizures, Denies weakness Psychiatric: Denies anxiety, Denies depression Endocrine: Denies fatigue, Denies weight change Past Medical History Past Medical History: Cancer, GERD/Reflux, Osteoarthritis (OA), Pulmonary Embolus (PE) Additional Past Medical History / Comment(s): ovarian cancer sx and getting chemo-latest chemo was on 06-11-18.pt stated has a Paracentesis monthly since jan 2018 , hx left breast cancer(lumpectomy and radiation tx), hiatal hernia, diverticular disease, past hx of sleep apnea-had uvula removed. uti-ecoi 11-18-16 History of Any Multi-Drug Resistant Organisms: MRSA Year Discovered:: unknown MDRO Source:: skin Past Surgical History: Adenoidectomy, Bariatric Surgery, Bladder Surgery, Breast Surgery, Hysterectomy, Orthopedic Surgery, Tonsillectomy Additional Past Surgical History / Comment(s): LT BREAST BX/lumpectomy/ RADIATION 2000, hysterectomy-"bowel was knicked" had sx to repair bowel, uvula removed d/t sleep apnea, rt knee meniscus repair, ivc filter 2016. rt knee meniscus repair, abd exploratory sx then 2nd sx for cancer/"debulking" Past Anesthesia/Blood Transfusion Reactions: No Reported Reaction Additional Past Anesthesia/Blood Transfusion Reaction / Comm: HX clausterphobia , blood transfusion-no reaction Smoking Status: Never smoker Additional Past Alcohol Use History / Comment(s): Patient has been a lifelong nonsmoker, no marijuana use, no illicit drug use, no alcohol use. Patient lives at home with her but he is [place] for work and her nephew is living with her. There is a cat named Bk in the home. 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 - Past Family History Mother Family Medical History: No Reported History Father Family Medical History: Hypertension Medications and Allergies Home Medications Medication Instructions Recorded Confirmed Type Multivitamins, Thera [Multivitamin 1 tab PO QAM 08/27/16 06/22/18 History (formulary)] Lansoprazole [Prevacid] 30 mg PO DAILY 11/18/16 06/22/18 History HYDROcodone/APAP 5-325MG [[place] 2 tab PO Q4HR PRN 12/05/16 06/22/18 History 5-325] Ondansetron HCl [Zofran] 1 tab PO DAILY PRN 06/22/18 06/22/18 History Polyethylene Glycol 3350 [Miralax] 17 gm PO Q12HR 06/22/18 06/22/18 History Prochlorperazine [Compazine] 10 mg PO TID PRN 06/22/18 06/22/18 History Zolpidem Tartrate [Ambien Cr] 12.5 mg PO HS PRN 06/22/18 06/22/18 History Allergies Allergy/AdvReac Type Severity Reaction Status Date / Time paclitaxel [From Taxol] Allergy Anaphylaxis Verified 06/22/18 13:12 Physical Exam Vitals: Vital Signs Temp Pulse Pulse Resp BP BP Pulse Ox 06/23/18 05:41 98.2 F 115 H 17 119/71 97 06/23/18 00:00 17 06/22/18 21:34 97.3 F L 97 16 110/67 98 06/22/18 17:31 97.9 F 108 H 18 108/64 98 06/22/18 16:00 100 21 117/72 96 06/22/18 15:00 109 H 14 120/73 96 06/22/18 14:31 114 H 18 120/73 97 06/22/18 13:33 123 H 18 124/79 97 06/22/18 12:58 101.1 F H 129 H 18 127/87 100 06/22/18 12:42 99.8 F H 144 H 20 104/73 100 Intake and Output 06/22/18 06/23/18 06/23/18 22:59 06:59 14:59 Intake Total 340 Balance 340 Intake: Oral 340 Other: Voiding Method Toilet # Voids 1 Gen: This is a 58-year-old female. She is resting in bed and appears to be comfortable and in no acute distress. HEENT: Head is atraumatic, normocephalic. Pupils equal, round. Sclerae is anicteric. Conjunctiva pale. Mucous members of the mouth are moist. No thrush noted. No oropharyngeal erythema or edema. NECK: Supple. No JVD. No lymphadenopathy. No thyromegaly. LUNGS: Clear to auscultation. No wheezes or rhonchi. No intercostal retractions. HEART: Regular rate and rhythm. No murmur. ABDOMEN: Soft. Bowel sounds are present. No masses. No tenderness. Mild to moderate ascites. EXTREMITIES: No pedal edema. No calf tenderness. Dorsalis pedis +2 bilaterally. SKIN: To the left antecubital area there is a large hematoma with surrounding erythema, warmth. No active drainage. Left mid anterior thigh has a large open drainage area with surrounding dark erythema with warmth, no foul odor. Drainage is a serous with slight sanguinous fluid. To the right hip, there is a large hematoma with white center, surrounding erythema, with warmth NEUROLOGICAL: Patient is awake, alert and oriented x3. Cranial nerves 2 through 12 are grossly intact. Results Results: Laboratory Results WBC 1.5 k/uL (3.8-10.6) L 06/23/18 07:11 RBC 1.90 m/uL (3.80-5.40) L 06/23/18 07:11 Hgb 6.3 gm/dL (11.4-16.0) L* 06/23/18 07:11 Hct 19.1 % (34.0-46.0) L* 06/23/18 07:11 MCV 100.6 fL (80.0-100.0) H 06/23/18 07:11 MCH 32.9 pg (25.0-35.0) 06/23/18 07:11 MCHC 32.7 g/dL (31.0-37.0) 06/23/18 07:11 RDW 20.1 % (11.5-15.5) H 06/23/18 07:11 Plt Count 36 k/uL (150-450) L 06/23/18 07:11 Neutrophils % 76 % 06/23/18 07:11 Lymphocytes % 15 % 06/23/18 07:11 Monocytes % 5 % 06/23/18 07:11 Eosinophils % 1 % 06/23/18 07:11 Basophils % 0 % 06/23/18 07:11 Neutrophils # 1.2 k/uL (1.3-7.7) L 06/23/18 07:11 Lymphocytes # 0.2 k/uL (1.0-4.8) L 06/23/18 07:11 Monocytes # 0.1 k/uL (0-1.0) 06/23/18 07:11 Eosinophils # 0.0 k/uL (0-0.7) 06/23/18 07:11 Basophils # 0.0 k/uL (0-0.2) 06/23/18 07:11 Manual Slide Review Performed 06/22/18 13:00 Hypochromasia Moderate 06/23/18 07:11 Poikilocytosis Slight 06/23/18 07:11 Anisocytosis Moderate 06/23/18 07:11 Macrocytosis Moderate 06/23/18 07:11 Rouleaux Present 06/22/18 13:00 PT 9.6 sec (9.0-12.0) 06/22/18 13:00 INR 0.9 (<1.2) 06/22/18 13:00 APTT 23.0 sec (22.0-30.0) 06/22/18 13:00 Sodium 135 mmol/L (137-145) L 06/23/18 07:11 Potassium 3.6 mmol/L (3.5-5.1) 06/23/18 07:11 Chloride 105 mmol/L (98-107) 06/23/18 07:11 Carbon Dioxide 23 mmol/L (22-30) 06/23/18 07:11 Anion Gap 7 mmol/L 06/23/18 07:11 BUN 17 mg/dL (7-17) 06/23/18 07:11 Creatinine 0.64 mg/dL (0.52-1.04) 06/23/18 07:11 Est GFR (CKD-EPI)AfAm >90 (>60 ml/min/1.73 sqM) 06/23/18 07:11 Est GFR (CKD-EPI)NonAf >90 (>60 ml/min/1.73 sqM) 06/23/18 07:11 Glucose 120 mg/dL (74-99) H 06/23/18 07:11 Plasma Lactic Acid Esau 1.9 mmol/L (0.7-2.0) 06/22/18 13:00 Calcium 8.3 mg/dL (8.4-10.2) L 06/23/18 07:11 Total Bilirubin 0.9 mg/dL (0.2-1.3) 06/22/18 13:00 AST 19 U/L (14-36) 06/22/18 13:00 ALT 23 U/L (9-52) 06/22/18 13:00 Alkaline Phosphatase 147 U/L (38-126) H 06/22/18 13:00 Total Protein 6.7 g/dL (6.3-8.2) 06/22/18 13:00 Albumin 3.6 g/dL (3.5-5.0) 06/22/18 13:00 Influenza Type A RNA Not Detected (Not Detectd) 06/22/18 13:34 Influenza Type B (PCR) Not Detected (Not Detectd) 06/22/18 13:34 Blood Type A Positive 06/22/18 13:00 Blood Type Recheck No 06/22/18 13:00 Antibody Screen NEGATIVE 06/22/18 13:00 Crossmatch See Detail 06/22/18 13:00 Spec Expiration Date 06/25/2018229906/22/18 13:00 CBC & Chem 7: 06/23/18 07:11 06/23/18 07:11 Labs: Abnormal Lab Results - Last 24 Hours (Table) 06/22/18 06/22/18 06/22/18 Range/Units 13:00 13:00 13:00 WBC 3.5 L (3.8-10.6) k/uL RBC 2.34 L (3.80-5.40) m/uL Hgb 7.5 L (11.4-16.0) gm/dL Hct 22.8 L (34.0-46.0) % MCV (80.0-100.0) fL RDW 19.8 H (11.5-15.5) % Plt Count 46 L D (150-450) k/uL Neutrophils # (1.3-7.7) k/uL Lymphocytes # 0.5 L (1.0-4.8) k/uL Sodium 135 L (137-145) mmol/L Chloride 95 L (98-107) mmol/L BUN 22 H (7-17) mg/dL Glucose 138 H (74-99) mg/dL Calcium (8.4-10.2) mg/dL Alkaline Phosphatase 147 H (38-126) U/L Crossmatch See Detail 06/23/18 06/23/18 Range/Units 07:11 07:11 WBC 1.5 L (3.8-10.6) k/uL RBC 1.90 L (3.80-5.40) m/uL Hgb 6.3 L* (11.4-16.0) gm/dL Hct 19.1 L* (34.0-46.0) % MCV 100.6 H (80.0-100.0) fL RDW 20.1 H (11.5-15.5) % Plt Count 36 L (150-450) k/uL Neutrophils # 1.2 L (1.3-7.7) k/uL Lymphocytes # 0.2 L (1.0-4.8) k/uL Sodium 135 L (137-145) mmol/L Chloride (98-107) mmol/L BUN (7-17) mg/dL Glucose 120 H (74-99) mg/dL Calcium 8.3 L (8.4-10.2) mg/dL Alkaline Phosphatase (38-126) U/L Crossmatch Microbiology - Last 24 Hours (Table) 06/22/18 14:29 Gram Stain - Preliminary Leg - Left Wound Culture - Preliminary 06/22/18 14:29 Anaerobic Culture - Preliminary Leg - Left Assessment and Plan Plan: This is a 58-year-old female with underlying history of ovarian cancer currently under chemotherapy treatment at [facility]. Patient presented with neutropenic sepsis, pancytopenia, large skin soft tissue abscess/ hematomas. Patient is currently on cefepime and vancomycin which will be continued. Blood cultures and wound culture in process. Consults are in place with Dr. Kelly and Dr. Galeana. Continue supportive care. Further recommendations as patient progresses. The above dictated assessment and findings were discussed with Dr. Santillan. The impression and plan of care have been directed as dictated. Rosalie Villarreal nurse practitioner acting as scribe for Dr. Santillan.
[2018-06-23] MEDS: VANCOMYCIN 1,500 MG in SODIUM CHLORIDE 0.9% 250 ML IVPB SCH ×2 (10:42→20:22)
--- NOTE | 2018-06-23 10:45 | CT ---
EXAMINATION TYPE: CT hip RT wo con DATE OF EXAM: 06/23/2018 COMPARISON: None HISTORY: Left thigh, Right hip and Left elbow redness and swelling CT DLP: 299.6 mGycm Automated exposure control for dose reduction was used. FINDINGS: Bilateral pars defects of L5 noted. There is diffuse ascites. Hypertrophic spurring along the greater trochanter. Visualized osseous structures intact. No destructive process. No definite soft tissue ma ss. IMPRESSION: ASCITES WITH NO ACUTE FRACTURE. BILATERAL PARS DEFECT L5. IF THERE IS CONCERN FOR SOFT TISSUE MASS MR I WOULD BE THE MORE APPROPRIATE EXAM. NO OBVIOUS SOFT TISSUE MASS SEEN.
--- NOTE | 2018-06-23 10:51 | CT ---
EXAMINATION TYPE: CT femur LT wo con DATE OF EXAM: 06/23/2018 COMPARISON: None HISTORY: Left thigh, Right hip and Left elbow redness and swelling CT DLP: 1194 mGycm Automated exposure control for dose reduction was used. FINDINGS: Visualized portions of the femur is intact. No acute fracture. No destructive change. Left hip is not included in the [id number]. There is skin thickening and soft tissue edema anteriorly at the leve l the upper thigh. Intramuscular's structures appears similar in attenuation. IMPRESSION: SKIN THICKENING ANTERIORLY AT THE LEVEL THE UPPER THIGH WITH SUBCUTANEOUS EDEMA. CORRELATE FOR CELLUL ITIS. NO DESTRUCTIVE CHANGE OR ACUTE FRACTURE.
--- NOTE | 2018-06-23 10:56 | CT ---
EXAMINATION TYPE: CT elbow LT wo con DATE OF EXAM: 06/23/2018 COMPARISON: Pain HISTORY: Left thigh, Right hip and Left elbow redness and swelling CT DLP: 200.9 mGycm Automated exposure control for dose reduction was used. FINDINGS: There is extensive soft tissue edema and skin thickening. No destructive changes are seen. Osseous st ructures are intact with no acute fracture. IMPRESSION: NO ACUTE OSSEOUS ABNORMALITY. SOFT TISSUE EDEMA AND SKIN THICKENING CORRELATE FOR CELLULITIS. IF THER E IS CONCERN FOR A FASCIITIS OF THE ELBOW, LEFT FEMUR OR RIGHT HIP MRI WOULD BE REQUIRED.
[2018-06-23] MEDS: MULTIVITAMINS, THERA 1 EACH TAB PO SCH (11:46)
--- NOTE | 2018-06-23 14:19 | P.GSCN ---
History of Present Illness Consult date: 06/23/18 Reason for Consult: Sepsis, wounds History of present illness: The patient is a 58-year-old female who is currently been undergoing chemotherapy for ovarian cancer. She became a little weak and went to sit down on the toilet, she missed and ended up falling and developing several large bruises. The one on the left thigh beginning to stick out and look very ugly. She also had a IV in the left arm a week ago. She developed bruising they are which improved but then that has subsequently started swelling up and getting tender. Review of Systems All systems: negative Past Medical History Past Medical History: Cancer, GERD/Reflux, Osteoarthritis (OA), Pulmonary Embolus (PE) Additional Past Medical History / Comment(s): ovarian cancer sx and getting chemo-latest chemo was on 06-11-18.pt stated has a Paracentesis monthly since jan 2018 , hx left breast cancer(lumpectomy and radiation tx), hiatal hernia, diverticular disease, past hx of sleep apnea-had uvula removed. uti-ecoi 11-18-16 History of Any Multi-Drug Resistant Organisms: MRSA Year Discovered:: unknown MDRO Source:: skin Past Surgical History: Adenoidectomy, Bariatric Surgery, Bladder Surgery, Breast Surgery, Hysterectomy, Orthopedic Surgery, Tonsillectomy Additional Past Surgical History / Comment(s): LT BREAST BX/lumpectomy/ RADIATION 2000, hysterectomy-"bowel was knicked" had sx to repair bowel, uvula removed d/t sleep apnea, rt knee meniscus repair, ivc filter 2016. rt knee meniscus repair, abd exploratory sx then 2nd sx for cancer/"debulking" Past Anesthesia/Blood Transfusion Reactions: No Reported Reaction Additional Past Anesthesia/Blood Transfusion Reaction / Comm: HX clausterphobia , blood transfusion-no reaction Smoking Status: Never smoker Additional Past Alcohol Use History / Comment(s): Patient has been a lifelong nonsmoker, no marijuana use, no illicit drug use, no alcohol use. Patient lives at home with her but he is overseas for work and her nephew is living with her. There is a cat named Bk in the home. 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 - Past Family History Mother Family Medical History: No Reported History Father Family Medical History: Hypertension Medications and Allergies Home Medications Medication Instructions Recorded Confirmed Type Multivitamins, Thera [Multivitamin 1 tab PO QAM 08/27/16 06/22/18 History (formulary)] Lansoprazole [Prevacid] 30 mg PO DAILY 11/18/16 06/22/18 History HYDROcodone/APAP 5-325MG [[place] 2 tab PO Q4HR PRN 12/05/16 06/22/18 History 5-325] Ondansetron HCl [Zofran] 1 tab PO DAILY PRN 06/22/18 06/22/18 History Polyethylene Glycol 3350 [Miralax] 17 gm PO Q12HR 06/22/18 06/22/18 History Prochlorperazine [Compazine] 10 mg PO TID PRN 06/22/18 06/22/18 History Zolpidem Tartrate [Ambien Cr] 12.5 mg PO HS PRN 06/22/18 06/22/18 History Allergies Allergy/AdvReac Type Severity Reaction Status Date / Time paclitaxel [From Taxol] Allergy Anaphylaxis Verified 06/22/18 13:12 Surgical - Exam Osteopathic Statement: *. No significant issues noted on an osteopathic structural exam other than those noted in the History and Physical/Consult. Vital Signs Temp Pulse Resp BP Pulse Ox 99.8 F H 144 H 20 104/73 100 06/22/18 12:42 06/22/18 12:42 06/22/18 12:42 06/22/18 12:42 06/22/18 12:42 - General well developed, well nourished, no distress - Eyes normal ocular movement - ENT normal mucosa - Neck trachea midline - Integumentary In the left antecubital area there is an area of erythema and edema. It's about 5 x 8 cm. The center portion is raised but I don't feel a definite fluctuance. The skin is intact. On the left thigh anteriorly there is an area a little bigger than 10 x 10 cm with swelling and protuberance. The overlying skin appears to be necrosing. Some fatty tissue is able to be seen and appears to be necrotic with quite a bit of ecchymosis. No definite fluctuant areas identified. The right hip has an area about 6 x 7 cm which is slightly raised. There is about a 1-1-1/2 cm area in the central portion where the skin is starting to breakdown. No evidence of fluctuance. - Psychiatric oriented to time, oriented to person, oriented to place, speech is normal, memory intact Results - Labs 06/23/18 07:11 06/23/18 07:11 Abnormal Lab Results - Last 24 Hours (Table) 06/22/18 06/23/18 06/23/18 Range/Units 13:00 07:11 07:11 WBC 1.5 L (3.8-10.6) k/uL RBC 1.90 L (3.80-5.40) m/uL Hgb 6.3 L* (11.4-16.0) gm/dL Hct 19.1 L* (34.0-46.0) % MCV 100.6 H (80.0-100.0) fL RDW 20.1 H (11.5-15.5) % Plt Count 36 L (150-450) k/uL Neutrophils # 1.2 L (1.3-7.7) k/uL Lymphocytes # 0.2 L (1.0-4.8) k/uL Sodium 135 L (137-145) mmol/L Glucose 120 H (74-99) mg/dL Calcium 8.3 L (8.4-10.2) mg/dL Crossmatch See Detail Microbiology - Last 24 Hours (Table) 06/22/18 14:29 Gram Stain - Preliminary Leg - Left Wound Culture - Preliminary 06/22/18 14:29 Anaerobic Culture - Preliminary Leg - Left Diabetes panel 06/23/18 Range/Units 07:11 Sodium 135 L (137-145) mmol/L Potassium 3.6 (3.5-5.1) mmol/L Chloride 105 (98-107) mmol/L Carbon Dioxide 23 (22-30) mmol/L BUN 17 (7-17) mg/dL Creatinine 0.64 (0.52-1.04) mg/dL Glucose 120 H (74-99) mg/dL Calcium 8.3 L (8.4-10.2) mg/dL Calcium panel 06/23/18 Range/Units 07:11 Calcium 8.3 L (8.4-10.2) mg/dL Pituitary panel 06/23/18 Range/Units 07:11 Sodium 135 L (137-145) mmol/L Potassium 3.6 (3.5-5.1) mmol/L Chloride 105 (98-107) mmol/L Carbon Dioxide 23 (22-30) mmol/L BUN 17 (7-17) mg/dL Creatinine 0.64 (0.52-1.04) mg/dL Glucose 120 H (74-99) mg/dL Calcium 8.3 L (8.4-10.2) mg/dL Adrenal panel 06/23/18 Range/Units 07:11 Sodium 135 L (137-145) mmol/L Potassium 3.6 (3.5-5.1) mmol/L Chloride 105 (98-107) mmol/L Carbon Dioxide 23 (22-30) mmol/L BUN 17 (7-17) mg/dL Creatinine 0.64 (0.52-1.04) mg/dL Glucose 120 H (74-99) mg/dL Calcium 8.3 L (8.4-10.2) mg/dL Assessment and Plan (1) Neutropenia Current Visit: Yes Status: Acute Code(s): D70.9 - NEUTROPENIA, UNSPECIFIED SNOMED Code(s): 031400223 (2) Ovarian cancer Current Visit: Yes Status: Acute Code(s): C56.9 - MALIGNANT NEOPLASM OF UNSPECIFIED OVARY SNOMED Code(s): 424611714 (3) Traumatic hematoma of hip Current Visit: Yes Status: Acute Code(s): S70.00XA - CONTUSION OF UNSPECIFIED HIP, INITIAL ENCOUNTER SNOMED Code(s): 524367113 (4) Traumatic hematoma of left thigh Current Visit: Yes Status: Acute Code(s): S70.12XA - CONTUSION OF LEFT THIGH , INITIAL ENCOUNTER SNOMED Code(s): 256400066 (5) Thrombocytopenia Current Visit: Yes Status: Acute Code(s): D69.6 - THROMBOCYTOPENIA, UNSPECIFIED SNOMED Code(s): 911829509 Plan: There are no signs of undrained abscesses on her CAT scan. This appears to be more an issue with hematoma is causing some skin and subcutaneous fat necrosis. She is on appropriate antibiotics and is being seen by infectious diseases. These will likely require excisional debridement but I would not do that until her thrombocytopenia and neutropenia improved. I'll follow with you. Possibly debridement or Friday depending on her overall condition and hematologic status.
[2018-06-23] MEDS: FILGRASTIM-SNDZ 480 MCG/0.8 ML SYRINGE SQ SCH (14:56)
--- NOTE | 2018-06-23 22:20 | P.CON ---
Consult Note - . Consult date: 06/23/18 Assessment/Plan:: This is a 58-year-old female gives history of having ovarian cancer currently under chemotherapy receiving her last round which will be completed on July 09. Her last chemotherapy was on June 11. 2 weeks ago patient also received blood transfusion through peripheral line as patient does not have a port. Patient gives history of slipping and falling in her bathroom landing on the shower/tub on June 02. She had sustained a hematoma to the left mid anterior thigh and right hip. When she received blood 2 weeks ago she also had a small hematoma to the left antecubital area. Patient states that she dropped a water bottle on her left thigh and hematoma burst open and started draining. All 3 hematomas have increased in size, warmth and erythema. Patient came into [facility] emergency independence for evaluation. She was found to be febrile with a temperature of 101.1 with tachycardia. Initial white count 3.5 and repeat 1.5, hemoglobin 6.3 and platelet count 36. Creatinine 0.64. Influenza testing was negative. She has 2 blood cultures obtained and a wound culture showing few polymorphonuclear leukocytes, no organisms seen and no growth at 24 hours. Chest x-ray showed hypoventilation changes without acute cardiopulmonary process. Patient was given 2 L of IV fluids, cefepime and vancomycin in the emergency room as well as morphine for pain control and admitted to the [facility] floor. There is a consult in place for Dr. Kelly and Dr. Galeana. Patient has been continued on cefepime and vancomycin. Patient also receives monthly paracentesis.Please see the consult note is dictated by nurse practitioner Mrs. Rosalie Villarreal. This pleasant 58-year-old woman relates that she received her last course of chemotherapy on June 11. She did receive Neulasta. Is now had a dose of Neupogen. She was she suffered a fall in her bathroom resulted in the multiple points of trauma. He also had difficulties with her left arm which she developed phlebitis with a blood transfusion. Local wound care to the arm can be with a cool pack. K pad will be asked for the discomfort in the left thigh. Nonstick dressings will be applied to the fall related injuries to the left thigh and right trochanteric area. Given her neutropenia and concerns to sepsis she is receiving appropriate antibiotic therapy with cefepime and vancomycin for now until there is further data. The case is discussed with the general surgeon and will need some type of debridement if future when she is more stable especially to the left thigh traumatic site. I agree with evaluation, assessment and plan is dictated by nurse practitioner Mrs. Rosalie Villarreal.
--- NOTE | 2018-06-23 22:38 | P.CONS ---
History of Present Illness - Reason for Consult Consult date: 06/23/18 ovarian cancer, pancytopenia, skin infection - History of Present Illness the patient is a 58-year-old white female, with a complicated past oncologic history. The patient was initially diagnosed with early stage left-sided breast cancer in 1999, treated with surgery and irradiation alone. She then presented in 11/16 with complains of abdominal discomfort and progressive ascites. She was seen in consult at that time, with cytology of the sciatic fluid indicating ovarian cancer. The patient was referred to [facility], Dr. Alaniz at [facility]. She was treated with chemotherapy, carboplatin and Taxol, as well as radical oncologic surgery. Surgery was performed in . The patient was in remission until 02/17, when she developed recurrent disease. She was started back on chemotherapy with carboplatin and Doxil. She has been tolerating the regimen well other than problems with cytopenias. She was in the ER on 06/09/18 for blood transfusion. Her most recent chemotherapy was administered on 06/11/18. She also received Neulasta. About 3 weeks ago, the patient had had falls, first injuring her left thigh, and then her right hip. She had developed hematomas in both these areas, with subsequent development of swelling, redness and pain followed by breakdown. She also developed redness, with progressive swelling and pain in the left antecubital fossa at the site of IV insertion for her blood transfusion. She then developed fevers, chills and shortness of breath with exertion, causing her to come to the emergency room. In the ER she was noted to have pancytopenia , with progressive drop in her counts today compared to yesterday. Consult was therefore placed for further evaluation and recommendations Review of Systems Constitutional: Reports fatigue, Reports fever, Reports weakness Eyes: denies blurred vision, denies pain Ears: deny: decreased hearing, ear discharge, earache, tinnitus Ears, nose, mouth and throat: Denies headache, Denies sore throat Cardiovascular: Reports decreased exercise tolerance Respiratory: Reports dyspnea Gastrointestinal: Denies abdominal pain, Denies diarrhea, Denies nausea, Denies vomiting Genitourinary: Denies dysuria, Denies hematuria Menstruation: Reports postmenopausal Musculoskeletal: Reports as per HPI Integumentary: Reports lesions, Reports wounds Neurological: Reports weakness, Denies numbness Psychiatric: Denies anxiety, Denies depression Endocrine: Denies fatigue, Denies weight change Hematologic/Lymphatic: Reports as per HPI Past Medical History Past Medical History: Cancer, GERD/Reflux, Osteoarthritis (OA), Pulmonary Embolus (PE) Additional Past Medical History / Comment(s): ovarian cancer sx and getting chemo-latest chemo was on 06-11-18.pt stated has a Paracentesis monthly since jan 2018 , hx left breast cancer(lumpectomy and radiation tx), hiatal hernia, diverticular disease, past hx of sleep apnea-had uvula removed. uti-ecoi 11-18-16 History of Any Multi-Drug Resistant Organisms: MRSA Year Discovered:: unknown MDRO Source:: skin Past Surgical History: Adenoidectomy, Bariatric Surgery, Bladder Surgery, Breast Surgery, Hysterectomy, Orthopedic Surgery, Tonsillectomy Additional Past Surgical History / Comment(s): LT BREAST BX/lumpectomy/ RADIATION 2000, hysterectomy-"bowel was knicked" had sx to repair bowel, uvula removed d/t sleep apnea, rt knee meniscus repair, ivc filter 2016. rt knee meniscus repair, abd exploratory sx then 2nd sx for cancer/"debulking" Past Anesthesia/Blood Transfusion Reactions: No Reported Reaction Additional Past Anesthesia/Blood Transfusion Reaction / Comm: HX clausterphobia , blood transfusion-no reaction Smoking Status: Never smoker - Past Family History Mother Family Medical History: No Reported History Father Family Medical History: Hypertension Medications and Allergies Home Medications Medication Instructions Recorded Confirmed Type Multivitamins, Thera [Multivitamin 1 tab PO QAM 08/27/16 06/22/18 History (formulary)] Lansoprazole [Prevacid] 30 mg PO DAILY 11/18/16 06/22/18 History HYDROcodone/APAP 5-325MG [[place] 2 tab PO Q4HR PRN 12/05/16 06/22/18 History 5-325] Ondansetron HCl [Zofran] 1 tab PO DAILY PRN 06/22/18 06/22/18 History Polyethylene Glycol 3350 [Miralax] 17 gm PO Q12HR 06/22/18 06/22/18 History Prochlorperazine [Compazine] 10 mg PO TID PRN 06/22/18 06/22/18 History Zolpidem Tartrate [Ambien Cr] 12.5 mg PO HS PRN 06/22/18 06/22/18 History Allergies Allergy/AdvReac Type Severity Reaction Status Date / Time paclitaxel [From Taxol] Allergy Anaphylaxis Verified 06/22/18 13:12 Physical Exam Vitals: Vital Signs Temp Pulse Pulse Resp BP BP Pulse Ox 06/23/18 05:41 98.2 F 115 H 17 119/71 97 06/23/18 00:00 17 06/22/18 21:34 97.3 F L 97 16 110/67 98 06/22/18 17:31 97.9 F 108 H 18 108/64 98 06/22/18 16:00 100 21 117/72 96 06/22/18 15:00 109 H 14 120/73 96 06/22/18 14:31 114 H 18 120/73 97 06/22/18 13:33 123 H 18 124/79 97 06/22/18 12:58 101.1 F H 129 H 18 127/87 100 06/22/18 12:42 99.8 F H 144 H 20 104/73 100 Intake and Output 06/22/18 06/23/18 06/23/18 22:59 06:59 14:59 Intake Total 340 Balance 340 Intake: Oral 340 Other: Voiding Method Toilet # Voids 1 - Constitutional General appearance: no acute distress - EENT Eyes: EOMI, PERRLA ENT: hearing grossly normal, normal oropharynx - Neck Neck: no lymphadenopathy Thyroid: bilateral: normal size - Respiratory Respiratory: bilateral: CTA - Cardiovascular Rhythm: regular Heart sounds: normal: S1, S2 - Gastrointestinal General gastrointestinal: normal bowel sounds, soft - Integumentary swelling, redness, tenderness left antecubital area hematoma 4-5 cm, with superficial ulcer, warmth, surrounding erythema, markedly tender, left ant thigh hematoma 3-4 cm, with superficial scabbed ulcer, warmth, surrounding erythema, markedly tender, rt hip area soft tissue - Neurologic Neurologic: CNII-XII intact - Musculoskeletal Musculoskeletal: generalized weakness, strength equal bilaterally - Psychiatric Psychiatric: A&O x's 3, appropriate affect Results CBC & Chem 7: 06/23/18 07:11 06/23/18 07:11 Labs: Abnormal Lab Results - Last 24 Hours (Table) 06/22/18 06/22/18 06/22/18 Range/Units 13:00 13:00 13:00 WBC 3.5 L (3.8-10.6) k/uL RBC 2.34 L (3.80-5.40) m/uL Hgb 7.5 L (11.4-16.0) gm/dL Hct 22.8 L (34.0-46.0) % MCV (80.0-100.0) fL RDW 19.8 H (11.5-15.5) % Plt Count 46 L D (150-450) k/uL Neutrophils # (1.3-7.7) k/uL Lymphocytes # 0.5 L (1.0-4.8) k/uL Sodium 135 L (137-145) mmol/L Chloride 95 L (98-107) mmol/L BUN 22 H (7-17) mg/dL Glucose 138 H (74-99) mg/dL Calcium (8.4-10.2) mg/dL Alkaline Phosphatase 147 H (38-126) U/L Crossmatch See Detail 06/23/18 06/23/18 Range/Units 07:11 07:11 WBC 1.5 L (3.8-10.6) k/uL RBC 1.90 L (3.80-5.40) m/uL Hgb 6.3 L* (11.4-16.0) gm/dL Hct 19.1 L* (34.0-46.0) % MCV 100.6 H (80.0-100.0) fL RDW 20.1 H (11.5-15.5) % Plt Count 36 L (150-450) k/uL Neutrophils # 1.2 L (1.3-7.7) k/uL Lymphocytes # 0.2 L (1.0-4.8) k/uL Sodium 135 L (137-145) mmol/L Chloride (98-107) mmol/L BUN (7-17) mg/dL Glucose 120 H (74-99) mg/dL Calcium 8.3 L (8.4-10.2) mg/dL Alkaline Phosphatase (38-126) U/L Crossmatch Microbiology - Last 24 Hours (Table) 06/22/18 14:29 Gram Stain - Preliminary Leg - Left Wound Culture - Preliminary 06/22/18 14:29 Anaerobic Culture - Preliminary Leg - Left Chest x-ray: report reviewed Assessment and Plan (1) Cellulitis and abscess of left leg Narrative/Plan: The pt has other areas of similiar involvement left ante cubital fossa, and rt hip. This pattern of multifocal infection in areas of trauma and hematomas is quite unusual even in a neutropenic pts. The pt actually does not have absolute neutropenia, though WBC is low. - Continue current broad spectrum antibiotics with Vanco and Cefepime. - Given PE findings, CT scans will be ordered to check for fasciitis. If positive for the same, she will need to be evaluated for urgent debridement. If negaitve , await surgical opinion re need for I & D Current Visit: Yes Status: Acute Code(s): L03.116 - CELLULITIS OF LEFT LOWER LIMB; L02.416 - CUTANEOUS ABSCESS OF LEFT LOWER LIMB SNOMED Code(s): 622834709 (2) Pancytopenia due to antineoplastic chemotherapy Narrative/Plan: Pt will receive 1 U PRBC. TRansfuse to keep hgb > 7 Start Filgrastim, as it is > 10 days since Neulasta. ANC is > 1000, but counts are actually dropping. Plt are in a safe range at 30-40. Transfuse to keep > 10 , unless there is active bleeding Current Visit: Yes Status: Acute Code(s): D61.810 - ANTINEOPLASTIC CHEMOTHERAPY INDUCED PANCYTOPENIA; T45.1X5A - ADVERSE EFFECT OF ANTINEOPLASTIC AND IMMUNOSUP DRUGS, INIT SNOMED Code(s): 813716182041403 (3) Ovarian cancer Narrative/Plan: Resume treatment with Dr Ying at [facility], once acute condition resolves sufficiently. Her next chemo is due 07/09/18 Current Visit: Yes Status: Acute Code(s): C56.9 - MALIGNANT NEOPLASM OF UNSPECIFIED OVARY SNOMED Code(s): 681191923 Plan: Case , including A/P discussed in detail with the admitting service
[2018-06-24] MEDS: CEFEPIME 2 GM in SODIUM CHLORIDE 0.9% 50 ML IVPB SCH ×3 (00:37→16:12)
--- NOTE | 2018-06-24 02:07 | PN ---
PROGRESS NOTE DATE OF SERVICE: 06/23/2018. PRESENT COMPLAINT: Infected multiple hematoma. INTERVAL HISTORY: This very pleasant lady who is being treated with chemotherapy for ovarian cancer presents with multiple infected hematomas and different sites of trauma with a septic picture. Is on IV cefepime and vancomycin. Feeling little bit better. Fevers have started to come down. Patient's family is visiting. Tolerating a diet. Lying in bed. REVIEW OF SYSTEMS: Done for constitutional, cardiovascular, GI, pulmonary; relevant findings as above. CURRENT MEDICATIONS: Reviewed, include IV cefepime and IV vancomycin. EXAMINATION: Afebrile today. Pulse 104, respirations 16, blood pressure 108/66, pulse ox 98% on room air. GENERAL APPEARANCE: Lying in bed, awake. EYES: Pupils equal. Conjunctivae normal. NECK: JVD not raised. Mass not palpable. Respiratory effort normal. LUNGS: Clear. CARDIOVASCULAR: 1st and 2nd heart sounds. No edema. ABDOMEN: Soft, nontender. Liver and spleen not palpable. PSYCHIATRY: Alert and oriented x3. Mood and affect normal. DERMATOLOGIC: Patient has inflamed infected hematoma abscess distal to the left antecubital fossa, the left thigh anteriorly and lateral part of the right thigh. INVESTIGATIONS: White count 1.5, hemoglobin 6.3, platelets 36, potassium 3.6. ASSESSMENT: 1. Multiple areas of hematoma secondarily infected causing sepsis, likely due to poor cellular immunity due to chemotherapy. 2. Pancytopenia, worsening due to chemotherapy. 3. Ovarian cancer, patient doing chemotherapy by Dr. Alaniz. 4. Gastroesophageal reflux disease. 5. Primary osteoarthritis. 6. 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 7. Scheduled monthly paracenteses. 8. Hiatal hernia. 9. Colonic diverticulosis. 10.Secondary ascites due to ovarian cancer. PLAN: Continue with IV antibiotics. I ordered a unit of blood earlier today. The patient has been started on filgrastim. Care was discussed with the patient. Questions were answered. Follow labs closely. MMODL / IJN: [id number] /
[2018-06-24] MEDS: MORPHINE SULFATE 4 MG/ML SYRINGE IV PRN ×4 (03:06→20:16)
[2018-06-24] MEDS: HYDROcodone/APAP 5-325MG 1 EACH TAB PO PRN ×5 (03:40→22:08)
[2018-06-24] MEDS: SODIUM CHLORIDE 0.9% 1,000 ML IV SCH ×3 (05:03→23:09)
[2018-06-24] MEDS ORDERED: VANCOMYCIN TROUGH DUE 1 EACH MISC MISCELLANE ONE (08:00)
[2018-06-24 08:52] LABS: ALT 23 U/L (9-52); AST 19 U/L (14-36); Albumin 2.7 g/dL (3.5-5.0); Alkaline Phosphatase 100 U/L (38-126); Anion Gap 18 mmol/L; Blood Urea Nitrogen 16 mg/dL (7-17); Calcium 7.1 mg/dL (8.4-10.2); Carbon Dioxide 20 mmol/L (22-30); Chloride 101 mmol/L (98-107); Glucose 107 mg/dL (74-99); Potassium 3.8 mmol/L (3.5-5.1); Sodium 139 mmol/L (137-145); Total Bilirubin 0.6 mg/dL (0.2-1.3); Total Protein 5.2 g/dL (6.3-8.2)
[2018-06-24 08:53] LABS: INR 0.9 (<1.2); Prothrombin Time 9.7 sec (9.0-12.0)
[2018-06-24 08:58] LABS: Anisocytosis Moderate; Basophils % (A) 0 %; Eosinophils # (A) 0.1 k/uL (0-0.7); Eosinophils % (A) 2 %; HCT 23.3 % (34.0-46.0); HGB 7.2 gm/dL (11.4-16.0); Hypochromasia Marked; Lymphocytes # (A) 0.4 k/uL (1.0-4.8); Lymphocytes % (A) 15 %; MCH 32.1 pg (25.0-35.0); MCHC 31.1 g/dL (31.0-37.0); MCV 103.3 fL (80.0-100.0); Macrocytosis Moderate; Mean Platelet Volume 9.2; Monocytes # (A) 0.2 k/uL (0-1.0); Monocytes % (A) 7 %; Neutrophils # (A) 1.8 k/uL (1.3-7.7); Neutrophils % (A) 72 %; Poikilocytosis Slight; RBC 2.26 m/uL (3.80-5.40); RDW 20.1 % (11.5-15.5); WBC 2.5 k/uL (3.8-10.6)
[2018-06-24 09:00] LABS: Partial Thromboplastin Time 18.5 sec (22.0-30.0); Platelet Count 35 k/uL (150-450)
[2018-06-24] MEDS: PANTOPRAZOLE 40 MG TABLET PO SCH (09:26)
[2018-06-24] MEDS: POLYETHYLENE GLYCOL 3350 17 GM POWD.PACK PO SCH ×2 (09:28→22:14)
[2018-06-24] MEDS: VANCOMYCIN 1,500 MG in SODIUM CHLORIDE 0.9% 250 ML IVPB SCH (10:24)
[2018-06-24] MEDS: FILGRASTIM-SNDZ 480 MCG/0.8 ML SYRINGE SQ SCH (11:36)
[2018-06-24] MEDS: VANCOMYCIN 1,750 MG in SODIUM CHLORIDE 0.9% 500 ML 500 ML IVPB SCH ×2 (11:36→23:18)
[2018-06-24] MEDS: MULTIVITAMINS, THERA 1 EACH TAB PO SCH (12:47)
[2018-06-24 13:04] LABS: Immunoglobulin M 33.4 mg/dL (40.0-280.0)
--- NOTE | 2018-06-24 17:45 | P.PN ---
Subjective Progress Note Date: 06/24/18 The patient seen on rounds. She is continuing Pain at her left antecubital area , left thigh, right hip. She is using warm packs on those areas and the pain is improved. Objective - Vital Signs Vital signs: Vital Signs Temp 97.9 F 06/24/18 17:23 Pulse 112 H 06/24/18 17:23 Resp 17 06/24/18 17:23 BP 130/68 06/24/18 17:23 Pulse Ox 97 06/24/18 12:02 Intake & Output 06/23/18 06/24/18 06/24/18 18:59 06:59 18:59 Intake Total 1260 Balance 1260 Weight 74.843 kg Intake: Intake, IV Titration 950 Amount Cefepime 2 gm In Sodium 100 Chloride 0.9% 50 ml @ 100 mls/hr IVPB Q8HR [facility] Rx# :[id number] Sodium Chloride 0.9% 1, 600 000 ml @ 75 mls/hr IV . [id number] [facility] Rx#:[id number] Vancomycin 1,500 mg In 250 Sodium Chloride 0.9% 250 ml @ 125 mls/hr IVPB ONCE ONE Rx#:[id number] Blood Product 310 Rc As-1 Unit 310 [id number] Other: Voiding Method Toilet Toilet Toilet # Voids 1 1 1 - Constitutional General appearance: Present: cooperative, no acute distress - Integumentary Integumentary Comment(s): The wound on the left anterior thigh appears stable. There is necrotic skin and probably fatty tissue. No change in size. No surrounding cellulitis. The right hip has a 3 cm bullae with clear fluid underneath. Otherwise the size hasn't changed and there is no surrounding cellulitis. The left antecubital area shows some increased fluctuance without drainage at this point. Overall size otherwise has not changed - Labs CBC & Chem 7: 06/24/18 07:57 06/24/18 07:57 Labs: Abnormal Lab Results - Last 24 Hours (Table) 06/23/18 06/24/18 06/24/18 Range/Units 07:11 07:57 07:57 WBC 2.5 L (3.8-10.6) k/uL RBC 2.26 L (3.80-5.40) m/uL Hgb 7.2 L (11.4-16.0) gm/dL Hct 23.3 L (34.0-46.0) % MCV 103.3 H (80.0-100.0) fL RDW 20.1 H (11.5-15.5) % Plt Count 35 L (150-450) k/uL Lymphocytes # 0.4 L (1.0-4.8) k/uL APTT (22.0-30.0) sec Carbon Dioxide 20 L (22-30) mmol/L Glucose 107 H (74-99) mg/dL Calcium 7.1 L (8.4-10.2) mg/dL Total Protein 5.2 L (6.3-8.2) g/dL Albumin 2.7 L (3.5-5.0) g/dL IgM 33.4 L (40.0-280.0) mg/dL 06/24/18 Range/Units 07:57 WBC (3.8-10.6) k/uL RBC (3.80-5.40) m/uL Hgb (11.4-16.0) gm/dL Hct (34.0-46.0) % MCV (80.0-100.0) fL RDW (11.5-15.5) % Plt Count (150-450) k/uL Lymphocytes # (1.0-4.8) k/uL APTT 18.5 L (22.0-30.0) sec Carbon Dioxide (22-30) mmol/L Glucose (74-99) mg/dL Calcium (8.4-10.2) mg/dL Total Protein (6.3-8.2) g/dL Albumin (3.5-5.0) g/dL IgM (40.0-280.0) mg/dL Microbiology - Last 24 Hours (Table) 06/22/18 13:00 Blood Culture - Preliminary Blood No Growth after 48 hours 06/22/18 14:29 Anaerobic Culture - Preliminary Leg - Left 06/22/18 14:29 Gram Stain - Final Leg - Left Wound Culture - Final 06/23/18 00:00 Blood Culture - Preliminary Blood No Growth after 24 hours Assessment and Plan (1) Neutropenia Current Visit: Yes Status: Acute Code(s): D70.9 - NEUTROPENIA, UNSPECIFIED SNOMED Code(s): 810578946 (2) Ovarian cancer Current Visit: Yes Status: Acute Code(s): C56.9 - MALIGNANT NEOPLASM OF UNSPECIFIED OVARY SNOMED Code(s): 053464252 (3) Traumatic hematoma of hip Current Visit: Yes Status: Acute Code(s): S70.00XA - CONTUSION OF UNSPECIFIED HIP, INITIAL ENCOUNTER SNOMED Code(s): 677481864 (4) Traumatic hematoma of left thigh Current Visit: Yes Status: Acute Code(s): S70.12XA - CONTUSION OF LEFT THIGH , INITIAL ENCOUNTER SNOMED Code(s): 471680376 (5) Thrombocytopenia Current Visit: Yes Status: Acute Code(s): D69.6 - THROMBOCYTOPENIA, UNSPECIFIED SNOMED Code(s): 091639095 (6) Abscess of antecubital fossa Current Visit: Yes Status: Acute Code(s): L02.419 - CUTANEOUS ABSCESS OF LIMB, UNSPECIFIED SNOMED Code(s): 620403264 Plan: Her white count and hemoglobin are nominally improved. She still has fairly significant thrombocytopenia. I would like to have a platelet count above 50, 000 before debridement since she will require more debridement on the thigh which could result in bleeding. I'll recheck her lab tomorrow. Hopefully her pancytopenia has improved by Friday.
--- NOTE | 2018-06-24 18:21 | P.PN ---
Subjective Progress Note Date: 06/24/18 Principal diagnosis: cancer WBC and Hgb Stable today, platlets mild decrease. CT scans revviewed Objective - Vital Signs Vital signs: Vital Signs Temp 98.1 F 06/24/18 12:02 Pulse 118 H 06/24/18 12:02 Resp 18 06/24/18 12:02 BP 113/70 06/24/18 12:02 Pulse Ox 97 06/24/18 12:02 Intake & Output 06/23/18 06/24/18 06/24/18 18:59 06:59 18:59 Intake Total 1260 Balance 1260 Weight 74.843 kg Intake: Intake, IV Titration 950 Amount Cefepime 2 gm In Sodium 100 Chloride 0.9% 50 ml @ 100 mls/hr IVPB Q8HR [facility] Rx# :[id number] Sodium Chloride 0.9% 1, 600 000 ml @ 75 mls/hr IV . [id number] [facility] Rx#:[id number] Vancomycin 1,500 mg In 250 Sodium Chloride 0.9% 250 ml @ 125 mls/hr IVPB ONCE ONE Rx#:[id number] Blood Product 310 Rc As-1 Unit 310 [id number] Other: Voiding Method Toilet Toilet Toilet # Voids 1 1 - Exam - Constitutional General appearance: no acute distress - EENT Eyes: EOMI, PERRLA ENT: hearing grossly normal, normal oropharynx - Neck Neck: no lymphadenopathy Thyroid: bilateral: normal size - Respiratory Respiratory: bilateral: CTA - Cardiovascular Rhythm: regular Heart sounds: normal: S1, S2 - Gastrointestinal General gastrointestinal: normal bowel sounds, soft - Integumentary swelling, redness, tenderness left antecubital area hematoma 4-5 cm, with superficial ulcer, warmth, surrounding erythema, markedly tender, left ant thigh hematoma 3-4 cm, with superficial scabbed ulcer, warmth, surrounding erythema, markedly tender, rt hip area soft tissue - Neurologic Neurologic: CNII-XII intact - Musculoskeletal Musculoskeletal: generalized weakness, strength equal bilaterally - Psychiatric Psychiatric: A&O x's 3, appropriate affect - Labs CBC & Chem 7: 06/24/18 07:57 06/24/18 07:57 Labs: Abnormal Lab Results - Last 24 Hours (Table) 06/22/18 06/23/18 06/24/18 Range/Units 13:00 07:11 07:57 WBC (3.8-10.6) k/uL RBC (3.80-5.40) m/uL Hgb (11.4-16.0) gm/dL Hct (34.0-46.0) % MCV (80.0-100.0) fL RDW (11.5-15.5) % Plt Count (150-450) k/uL Lymphocytes # (1.0-4.8) k/uL APTT (22.0-30.0) sec Carbon Dioxide 20 L (22-30) mmol/L Glucose 107 H (74-99) mg/dL Calcium 7.1 L (8.4-10.2) mg/dL Total Protein 5.2 L (6.3-8.2) g/dL Albumin 2.7 L (3.5-5.0) g/dL IgM 33.4 L (40.0-280.0) mg/dL Crossmatch See Detail 06/24/18 06/24/18 Range/Units 07:57 07:57 WBC 2.5 L (3.8-10.6) k/uL RBC 2.26 L (3.80-5.40) m/uL Hgb 7.2 L (11.4-16.0) gm/dL Hct 23.3 L (34.0-46.0) % MCV 103.3 H (80.0-100.0) fL RDW 20.1 H (11.5-15.5) % Plt Count 35 L (150-450) k/uL Lymphocytes # 0.4 L (1.0-4.8) k/uL APTT 18.5 L (22.0-30.0) sec Carbon Dioxide (22-30) mmol/L Glucose (74-99) mg/dL Calcium (8.4-10.2) mg/dL Total Protein (6.3-8.2) g/dL Albumin (3.5-5.0) g/dL IgM (40.0-280.0) mg/dL Crossmatch Microbiology - Last 24 Hours (Table) 06/22/18 14:29 Gram Stain - Final Leg - Left Wound Culture - Final 06/23/18 00:00 Blood Culture - Preliminary Blood No Growth after 24 hours 06/22/18 13:00 Blood Culture - Preliminary Blood No Growth after 24 hours Assessment and Plan Plan: (1) Cellulitis and abscess of left leg Narrative/Plan: - Dr. Day has seen and evaluated patient, planning debridement when platlet count greater than 50K, can also infuse platelet transfusion at same time of procedure if immediate intervention needed - Continue current broad spectrum antibiotics with Vanco and Cefepime. - Reviewed CT findings. Current Visit: Yes Status: Acute Code(s): L03.116 - CELLULITIS OF LEFT LOWER LIMB; L02.416 - CUTANEOUS ABSCESS OF LEFT LOWER LIMB SNOMED Code(s): 477231791 (2) Pancytopenia due to antineoplastic chemotherapy Narrative/Plan: - Pt will receive 1 U PRBC. TRansfuse to keep hgb > 7 - Continue Filgrastim, as it is > 10 days since Neulasta. ANC is > 1000, but counts are actually dropping. - Plt are in a safe range at 30-40. Transfuse to keep > 10 , unless there is active bleeding Current Visit: Yes Status: Acute Code(s): D61.810 - ANTINEOPLASTIC CHEMOTHERAPY INDUCED PANCYTOPENIA; T45.1X5A - ADVERSE EFFECT OF ANTINEOPLASTIC AND IMMUNOSUP DRUGS, INIT SNOMED Code(s): 106925671346891 (3) Ovarian cancer Narrative/Plan: - Resume treatment with Dr Abdalla at [facility], once acute condition resolves sufficiently. Her next chemo is due 07/09/18 Current Visit: Yes Status: Acute Code(s): C56.9 - MALIGNANT NEOPLASM OF UNSPECIFIED OVARY SNOMED Code(s): 760313919
[2018-06-25] MEDS: MORPHINE SULFATE 4 MG/ML SYRINGE IV PRN ×6 (00:31→22:23)
[2018-06-25] MEDS: CEFEPIME 2 GM in SODIUM CHLORIDE 0.9% 50 ML IVPB SCH ×3 (01:24→15:58)
[2018-06-25] MEDS: HYDROcodone/APAP 5-325MG 1 EACH TAB PO PRN ×4 (02:42→20:13)
--- NOTE | 2018-06-25 07:15 | PN ---
PROGRESS NOTE DATE OF SERVICE: 06/24/2018 PRESENTING COMPLAINT: Infected multiple hematomas. INTERVAL HISTORY: This very pleasant lady undergoing chemotherapy for ovarian cancer, presents with multiple infected hematoma at different signs of trauma with septic picture. Fevers are coming down on IV antibiotics. Some of these are coalescing more and gissel up and some of them have broken down. REVIEW OF SYSTEMS: Done for constitutional, cardiovascular, GI, pulmonary; relevant findings as above. Patient tolerating a diet. CURRENT MEDICATIONS: Reviewed that include IV cefepime and vancomycin. PHYSICAL EXAMINATION: Afebrile, pulse 118, respiration 18, blood pressure 103/70, pulse ox 97% on room air. GENERAL APPEARANCE: Lying in bed, awake, comfortable. EYES: Pupils equal, conjunctivae are normal. NECK: JVD not raised. Mass not palpable. RESPIRATORY: Effort normal. Lungs are clear. CARDIOVASCULAR: First and second sounds are normal, no edema. ABDOMEN: Soft, nontender Liver and spleen not palpable. PSYCHIATRY: Alert and oriented x3. Mood and affect normal. DERMATOLOGICAL: Infected hematoma/abscess present on the left forearm, left anterior thigh, lateral part of the right thigh. The roof is being more formed, especially in the one on the right hip. INVESTIGATIONS: White count 2.5, hemoglobin 7.2, platelets 35, potassium 3.8. Patient's IgM is low at 33.4. ASSESSMENT: 1. Multiple areas of hematoma secondary infected causing sepsis due to poor immunity due to chemotherapy, patient noted to have low IgM. 2. Will check for patient's complement levels. 3. Pancytopenia due to chemotherapy. 4. Colon cancer, getting chemotherapy by Dr. Alaniz. 5. Gastroesophageal reflux disease. 6. Primary osteoarthritis. 7. 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 8. Scheduled monthly paracentesis. 9. Hiatal hernia. 10.Colonic diverticulosis. 11.Secondary ascites due to ovarian cancer. PLAN: Care was discussed with the patient. Clinically, she started to do better. Dr. Day is planning to do possible I and D. Will check with cultures, slow to respond. MMODL / SHAMAN: [id number] /
[2018-06-25] MEDS: PANTOPRAZOLE 40 MG TABLET PO SCH (07:33)
[2018-06-25] MEDS: POLYETHYLENE GLYCOL 3350 17 GM POWD.PACK PO SCH ×2 (07:33→20:17)
[2018-06-25 09:36] LABS: Anion Gap 9 mmol/L; Blood Urea Nitrogen 18 mg/dL (7-17); Calcium 8.2 mg/dL (8.4-10.2); Carbon Dioxide 22 mmol/L (22-30); Chloride 105 mmol/L (98-107); Glucose 133 mg/dL (74-99); Potassium 3.9 mmol/L (3.5-5.1); Sodium 136 mmol/L (137-145)
[2018-06-25 09:38] LABS: Anisocytosis Moderate; HCT 21.8 % (34.0-46.0); Hypochromasia Moderate; MCH 31.9 pg (25.0-35.0); MCV 99.9 fL (80.0-100.0); Macrocytosis Moderate; Mean Platelet Volume 9.2; Poikilocytosis Slight; RBC 2.19 m/uL (3.80-5.40); RDW 20.1 % (11.5-15.5); WBC 2.4 k/uL (3.8-10.6)
[2018-06-25 09:51] LABS: Platelet Count 34 k/uL (150-450)
--- NOTE | 2018-06-25 10:13 | P.PN ---
Progress Note - Text Progress Note Date: 06/25/18 The platelet count hasn't increased. Other counts are fairly stable. Will take to OR tomorrow for debridement and transfuse platelets intraoperatively. Will obtain deep cultures, but the wound on the hip and thigh appear to be necrotic rather than an acute infectious process.Will also send the debrided tissue for pathology.
[2018-06-25 10:53] LABS: Band Neutrophils % 9 %; Eosinophils # (M) 0.05 k/uL (0-0.7); Lymphocytes # (M) 0.31 k/uL (1.0-4.8); Monocytes # (M) 0.24 k/uL (0-1.0); Neutrophils % (M) 66 %; Nucleated Red Blood Cells 0 /100 WBC (0-0); Total Cells Counted 100
[2018-06-25] MEDS: FILGRASTIM-SNDZ 480 MCG/0.8 ML SYRINGE SQ SCH (11:04)
[2018-06-25] MEDS: VANCOMYCIN 1,750 MG in SODIUM CHLORIDE 0.9% 500 ML 500 ML IVPB SCH ×2 (11:05→22:26)
--- NOTE | 2018-06-25 11:16 | P.PN ---
Subjective Progress Note Date: 06/25/18 Principal diagnosis: cancer Blood count stable, not improved. Her Platelet count remains below 50K, recheck Coags and if surgical intervention recommend intraoperative transfusion and one hour post procedure monitoring. Objective - Vital Signs Vital signs: Vital Signs Temp 97.5 F L 06/25/18 05:59 Pulse 108 H 06/25/18 08:15 Resp 16 06/25/18 08:15 BP 120/67 06/25/18 05:59 Pulse Ox 98 06/25/18 05:59 Intake & Output 06/24/18 06/25/18 06/25/18 18:59 06:59 18:59 Intake Total 2370 Balance 2370 Intake: Intake, IV Titration 1750 Amount Cefepime 2 gm In Sodium 100 Chloride 0.9% 50 ml @ 100 mls/hr IVPB Q8HR [facility] Rx# :[id number] Sodium Chloride 0.9% 1, 1150 000 ml @ 75 mls/hr IV . [id number] [facility] Rx#:[id number] Vancomycin 1,750 mg In 500 Sodium Chloride 0.9% 500 ml 500 ml @ 167 mls/hr IVPB Q12H [facility] Rx#: [id number] Oral 620 Other: Voiding Method Toilet Toilet Toilet # Voids 1 1 - Exam - Constitutional General appearance: no acute distress - EENT Eyes: EOMI, PERRLA ENT: hearing grossly normal, normal oropharynx - Neck Neck: no lymphadenopathy Thyroid: bilateral: normal size - Respiratory Respiratory: bilateral: CTA - Cardiovascular Rhythm: regular Heart sounds: normal: S1, S2 - Gastrointestinal General gastrointestinal: normal bowel sounds, soft - Integumentary swelling, redness, tenderness left antecubital area hematoma 4-5 cm, with superficial ulcer, warmth, surrounding erythema, markedly tender, left ant thigh hematoma 3-4 cm, with superficial scabbed ulcer, warmth, surrounding erythema, markedly tender, rt hip area soft tissue - Neurologic Neurologic: CNII-XII intact - Musculoskeletal Musculoskeletal: generalized weakness, strength equal bilaterally - Psychiatric Psychiatric: A&O x's 3, appropriate affect - Labs CBC & Chem 7: 06/25/18 08:30 06/25/18 08:30 Labs: Abnormal Lab Results - Last 24 Hours (Table) 06/23/18 06/25/18 06/25/18 Range/Units 07:11 08:30 08:30 WBC 2.4 L (3.8-10.6) k/uL RBC 2.19 L (3.80-5.40) m/uL Hgb 7.0 L (11.4-16.0) gm/dL Hct 21.8 L (34.0-46.0) % RDW 20.1 H (11.5-15.5) % Plt Count 34 L (150-450) k/uL Lymphocytes # (Manual) 0.31 L (1.0-4.8) k/uL Sodium 136 L (137-145) mmol/L BUN 18 H (7-17) mg/dL Glucose 133 H (74-99) mg/dL Calcium 8.2 L (8.4-10.2) mg/dL IgM 33.4 L (40.0-280.0) mg/dL Microbiology - Last 24 Hours (Table) 06/23/18 00:00 Blood Culture - Preliminary Blood No Growth after 48 hours 06/22/18 13:00 Blood Culture - Preliminary Blood No Growth after 48 hours 06/22/18 14:29 Anaerobic Culture - Preliminary Leg - Left 06/22/18 14:29 Gram Stain - Final Leg - Left Wound Culture - Final Assessment and Plan Plan: (1) Cellulitis and abscess of left leg Narrative/Plan: - Dr. Day has seen and evaluated patient, planning debridement when platlet count greater than 50K, did read and agree with intraoperative infusion? transfusion of platlets if platlet less than 50K - Continue current broad spectrum antibiotics with Vanco and Cefepime. - Reviewed CT findings. Current Visit: Yes Status: Acute Code(s): L03.116 - CELLULITIS OF LEFT LOWER LIMB; L02.416 - CUTANEOUS ABSCESS OF LEFT LOWER LIMB SNOMED Code(s): 854498310 (2) Pancytopenia due to antineoplastic chemotherapy Narrative/Plan: - Pt will receive 1 U PRBC. TRansfuse to keep hgb > 7 - Continue Filgrastim, as it is > 10 days since Neulasta. ANC is > 1000, but counts are actually dropping. - Plt are in a safe range at 30-40. Transfuse to keep > 10 , unless there is active bleeding Current Visit: Yes Status: Acute Code(s): D61.810 - ANTINEOPLASTIC CHEMOTHERAPY INDUCED PANCYTOPENIA; T45.1X5A - ADVERSE EFFECT OF ANTINEOPLASTIC AND IMMUNOSUP DRUGS, INIT SNOMED Code(s): 337920948129497 (3) Ovarian cancer Narrative/Plan: - Resume treatment with Dr Abdalla at [facility], once acute condition resolves sufficiently. Her next chemo is due 07/09/18 Current Visit: Yes Status: Acute Code(s): C56.9 - MALIGNANT NEOPLASM OF UNSPECIFIED OVARY SNOMED Code(s): 461128819 Physician Attestation: I have completed the full history and physical of the patient and agree with above dictation by Shayne Garcia NP. Dictated as a scribe.
[2018-06-25] MEDS: MULTIVITAMINS, THERA 1 EACH TAB PO SCH (14:14)
[2018-06-25] MEDS: SODIUM CHLORIDE 0.9% 1,000 ML IV SCH (14:14)
[2018-06-26] MEDS: HYDROcodone/APAP 5-325MG 1 EACH TAB PO PRN ×5 (00:20→21:58)
[2018-06-26] MEDS: ZOLPIDEM 5 MG TAB PO PRN (01:05)
[2018-06-26] MEDS: CEFEPIME 2 GM in SODIUM CHLORIDE 0.9% 50 ML IVPB SCH ×4 (01:30→23:22)
[2018-06-26] MEDS: SODIUM CHLORIDE 0.9% 1,000 ML IV SCH ×2 (03:56→16:38)
[2018-06-26] MEDS: MORPHINE SULFATE 4 MG/ML SYRINGE IV PRN ×4 (06:33→23:46)
[2018-06-26 08:25] LABS: Anion Gap 11 mmol/L; Blood Urea Nitrogen 18 mg/dL (7-17); Calcium 8.3 mg/dL (8.4-10.2); Carbon Dioxide 19 mmol/L (22-30); Chloride 108 mmol/L (98-107); Glucose 104 mg/dL (74-99); Potassium 3.8 mmol/L (3.5-5.1); Sodium 138 mmol/L (137-145)
[2018-06-26 08:48] LABS: Anisocytosis Slight; HCT 22.3 % (34.0-46.0); HGB 7.1 gm/dL (11.4-16.0); Hypochromasia Marked; MCHC 31.8 g/dL (31.0-37.0); MCV 100.8 fL (80.0-100.0); Macrocytosis Moderate; Poikilocytosis Slight; RBC 2.21 m/uL (3.80-5.40); RDW 19.9 % (11.5-15.5); WBC 5.1 k/uL (3.8-10.6)
[2018-06-26] MEDS ORDERED: VANCOMYCIN TROUGH DUE 1 EACH MISC MISCELLANE ONE (09:00)
[2018-06-26 09:06] LABS: Platelet Count 32 k/uL (150-450)
[2018-06-26] MEDS: PANTOPRAZOLE 40 MG TABLET PO SCH (09:09)
[2018-06-26] MEDS: FILGRASTIM-SNDZ 480 MCG/0.8 ML SYRINGE SQ SCH (09:32)
[2018-06-26 10:49] LABS: Band Neutrophils % 3 %; Lymphocytes # (M) 0.51 k/uL (1.0-4.8); Metamyelocytes % 2 %; Monocytes # (M) 0.71 k/uL (0-1.0); Myelocytes # (M) 0.05 k/uL (0); Myelocytes % 1 %; Neutrophils % (M) 71 %; Nucleated Red Blood Cells 0 /100 WBC (0-0); Total Cells Counted 200
[2018-06-26 10:50] LABS: Toxic Granulation Present
[2018-06-26] MEDS: POLYETHYLENE GLYCOL 3350 17 GM POWD.PACK PO SCH ×2 (10:54→20:52)
[2018-06-26] MEDS ORDERED: IV FLUID CONTINUATION 1,000 ML IV ONE (12:16)
[2018-06-26] MEDS: MULTIVITAMINS, THERA 1 EACH TAB PO SCH (12:40)
--- NOTE | 2018-06-26 13:33 | P.PN ---
Subjective Progress Note Date: 06/25/18 This is a 58-year-old female gives history of having ovarian cancer currently under chemotherapy receiving her last round which will be completed on July 09. Her last chemotherapy was on June 11. 2 weeks ago patient also received blood transfusion through peripheral line as patient does not have a port. Patient gives history of slipping and falling in her bathroom landing on the shower/tub on June 02. She had sustained a hematoma to the left mid anterior thigh and right hip. When she received blood 2 weeks ago she also had a small hematoma to the left antecubital area. Patient states that she dropped a water bottle on her left thigh and hematoma burst open and started draining. All 3 hematomas have increased in size, warmth and erythema. Patient came into [facility] emergency center for evaluation. She was found to be febrile with a temperature of 101.1 with tachycardia. Initial white count 3.5 and repeat 1.5, hemoglobin 6.3 and platelet count 36. Creatinine 0.64. Influenza testing was negative. She has 2 blood cultures obtained and a wound culture showing few polymorphonuclear leukocytes, no organisms seen and no growth at 24 hours. Chest x-ray showed hypoventilation changes without acute cardiopulmonary process. Patient was given 2 L of IV fluids, cefepime and vancomycin in the emergency room as well as morphine for pain control and admitted to the [facility] floor. There is a consult in place for Dr. Kelly and Dr. Galeana. Patient has been continued on cefepime and vancomycin. Patient also receives monthly paracentesis. 06/25/2018 patient is feeling somewhat better today. The shortness surgical debridement of the areas tomorrow from Dr. Day. We'll be able to assist with wound care post-debridement. Objective - Vital Signs Vital signs: Vital Signs Temp 98.9 F 06/26/18 12:18 Pulse 120 H 06/26/18 12:18 Resp 18 06/26/18 12:18 BP 160/74 06/26/18 12:18 Pulse Ox 96 06/26/18 12:18 Intake & Output 06/25/18 06/26/18 06/26/18 18:59 06:59 18:59 Intake Total 1510 590 Output Total 3 1 Balance 1507 589 Intake: Intake, IV Titration 1150 Amount Cefepime 2 gm In Sodium 50 Chloride 0.9% 50 ml @ 100 mls/hr IVPB Q8HR [facility] Rx# :[id number] Sodium Chloride 0.9% 1, 600 000 ml @ 75 mls/hr IV . [id number] [facility] Rx#:[id number] Vancomycin 1,750 mg In 500 Sodium Chloride 0.9% 500 ml 500 ml @ 167 mls/hr IVPB Q12H [facility] Rx#: [id number] Oral 360 590 Output: Stool 3 1 Other: Voiding Method Toilet Toilet # Voids 3 2 - Exam Gen: This is a 58-year-old female. She is resting in bed and appears to be comfortable and in no acute distress. HEENT: Head is atraumatic, normocephalic. Pupils equal, round. Sclerae is anicteric. Conjunctiva pale. Mucous members of the mouth are moist. No thrush noted. No oropharyngeal erythema or edema. NECK: Supple. No JVD. No lymphadenopathy. No thyromegaly. LUNGS: Clear to auscultation. No wheezes or rhonchi. No intercostal retractions. HEART: Regular rate and rhythm. No murmur. ABDOMEN: Soft. Bowel sounds are present. No masses. No tenderness. Mild to moderate ascites. EXTREMITIES: No pedal edema. No calf tenderness. Dorsalis pedis +2 bilaterally. SKIN: To the left antecubital area there is a large hematoma with surrounding erythema, warmth. No active drainage. Left mid anterior thigh has a large open drainage area with surrounding dark erythema with warmth, no foul odor. Drainage is a serous with slight sanguinous fluid. The right hip area has now developed into a large blister that is quite tender with surrounding erythema. The left antecubital site is similar with blistering. Left thigh is similar in its appearance NEUROLOGICAL: Patient is awake, alert and oriented x3. - Labs CBC & Chem 7: 06/26/18 06:55 06/26/18 06:55 Labs: Abnormal Lab Results - Last 24 Hours (Table) 06/26/18 06/26/18 Range/Units 06:55 06:55 RBC 2.21 L (3.80-5.40) m/uL Hgb 7.1 L (11.4-16.0) gm/dL Hct 22.3 L (34.0-46.0) % MCV 100.8 H (80.0-100.0) fL RDW 19.9 H (11.5-15.5) % Plt Count 32 L (150-450) k/uL Lymphocytes # (Manual) 0.51 L (1.0-4.8) k/uL Metamyelocytes # (Man) 0.10 H (0) k/uL Myelocytes # (Manual) 0.05 H (0) k/uL Chloride 108 H (98-107) mmol/L Carbon Dioxide 19 L (22-30) mmol/L BUN 18 H (7-17) mg/dL Glucose 104 H (74-99) mg/dL Calcium 8.3 L (8.4-10.2) mg/dL Microbiology - Last 24 Hours (Table) 06/22/18 14:29 Anaerobic Culture - Final Leg - Left 06/25/18 07:40 Gram Stain - Preliminary Thigh - Left Wound Culture - Preliminary 06/23/18 00:00 Blood Culture - Preliminary Blood No Growth after 72 hours 06/22/18 13:00 Blood Culture - Preliminary Blood No Growth after 72 hours Laboratory Results WBC 5.1 k/uL (3.8-10.6) 06/26/18 06:55 RBC 2.21 m/uL (3.80-5.40) L 06/26/18 06:55 Hgb 7.1 gm/dL (11.4-16.0) L 06/26/18 06:55 Hct 22.3 % (34.0-46.0) L 06/26/18 06:55 MCV 100.8 fL (80.0-100.0) H 06/26/18 06:55 MCH 32.0 pg (25.0-35.0) 06/26/18 06:55 MCHC 31.8 g/dL (31.0-37.0) 06/26/18 06:55 RDW 19.9 % (11.5-15.5) H 06/26/18 06:55 Plt Count 32 k/uL (150-450) L 06/26/18 06:55 Neutrophils % 72 % 06/24/18 07:57 Neutrophils % (Manual) 71 % 06/26/18 06:55 Band Neutrophils % 3 % 06/26/18 06:55 Lymphocytes % 15 % 06/24/18 07:57 Lymphocytes % (Manual) 10 % 06/26/18 06:55 Monocytes % 7 % 06/24/18 07:57 Monocytes % (Manual) 14 % 06/26/18 06:55 Eosinophils % 2 % 06/24/18 07:57 Eosinophils % (Manual) 2 % 06/26/18 06:55 Basophils % 0 % 06/24/18 07:57 Metamyelocytes % 2 % 06/26/18 06:55 Myelocytes % 1 % 06/26/18 06:55 Neutrophils # 1.8 k/uL (1.3-7.7) 06/24/18 07:57 Neutrophils # (Manual) 3.70 k/uL (1.3-7.7) 06/26/18 06:55 Lymphocytes # 0.4 k/uL (1.0-4.8) L 06/24/18 07:57 Lymphocytes # (Manual) 0.51 k/uL (1.0-4.8) L 06/26/18 06:55 Monocytes # 0.2 k/uL (0-1.0) 06/24/18 07:57 Monocytes # (Manual) 0.71 k/uL (0-1.0) 06/26/18 06:55 Eosinophils # 0.1 k/uL (0-0.7) 06/24/18 07:57 Eosinophils # (Manual) 0.10 k/uL (0-0.7) 06/26/18 06:55 Basophils # 0.0 k/uL (0-0.2) 06/24/18 07:57 Metamyelocytes # (Man) 0.10 k/uL (0) H 06/26/18 06:55 Myelocytes # (Manual) 0.05 k/uL (0) H 06/26/18 06:55 Nucleated RBCs 0 /100 WBC (0-0) 06/26/18 06:55 Manual Slide Review Performed 06/26/18 06:55 Toxic Granulation Present 06/26/18 06:55 Hypochromasia Marked 06/26/18 06:55 Poikilocytosis Slight 06/26/18 06:55 Anisocytosis Slight 06/26/18 06:55 Macrocytosis Moderate 06/26/18 06:55 Rouleaux Present 06/22/18 13:00 PT 9.7 sec (9.0-12.0) 06/24/18 07:57 INR 0.9 (<1.2) 06/24/18 07:57 APTT 18.5 sec (22.0-30.0) L 06/24/18 07:57 Sodium 138 mmol/L (137-145) 06/26/18 06:55 Potassium 3.8 mmol/L (3.5-5.1) 06/26/18 06:55 Chloride 108 mmol/L (98-107) H 06/26/18 06:55 Carbon Dioxide 19 mmol/L (22-30) L 06/26/18 06:55 Anion Gap 11 mmol/L 06/26/18 06:55 BUN 18 mg/dL (7-17) H 06/26/18 06:55 Creatinine 0.65 mg/dL (0.52-1.04) 06/26/18 06:55 Est GFR (CKD-EPI)AfAm >90 (>60 ml/min/1.73 sqM) 06/26/18 06:55 Est GFR (CKD-EPI)NonAf >90 (>60 ml/min/1.73 sqM) 06/26/18 06:55 Glucose 104 mg/dL (74-99) H 06/26/18 06:55 Plasma Lactic Acid Esau 1.9 mmol/L (0.7-2.0) 06/22/18 13:00 Calcium 8.3 mg/dL (8.4-10.2) L 06/26/18 06:55 Total Bilirubin 0.6 mg/dL (0.2-1.3) 06/24/18 07:57 AST 19 U/L (14-36) 06/24/18 07:57 ALT 23 U/L (9-52) 06/24/18 07:57 Alkaline Phosphatase 100 U/L (38-126) 06/24/18 07:57 Total Protein 5.2 g/dL (6.3-8.2) L 06/24/18 07:57 Albumin 2.7 g/dL (3.5-5.0) L 06/24/18 07:57 Vancomycin Trough 24.3 ug/mL 06/26/18 08:35 IgG 762.0 mg/dL (700.0-1600.0) 06/23/18 07:11 IgA 157.0 mg/dL (60.0-350.0) 06/23/18 07:11 IgM 33.4 mg/dL (40.0-280.0) L 06/23/18 07:11 Complement C3 160.0 mg/dL (80.0-207.0) 06/25/18 08:30 Complement C4 41.4 mg/dL (10.0-53.0) 06/25/18 08:30 Influenza Type A RNA Not Detected (Not Detectd) 06/22/18 13:34 Influenza Type B (PCR) Not Detected (Not Detectd) 06/22/18 13:34 Blood Type A Positive 06/26/18 10:32 Blood Type Recheck No 06/26/18 10:32 Antibody Screen NEGATIVE 06/26/18 10:32 Crossmatch See Detail 06/22/18 13:00 Transfuse Platelets 06/26/18 06/26/18 10:32 Spec Expiration Date 06/29/2018233106/26/18 10:32 Microbiology 06/22/18 14:29 Leg - Left Anaerobic Culture - Final 06/25/18 07:40 Thigh - Left Gram Stain - Preliminary 06/25/18 07:40 Thigh - Left Wound Culture - Preliminary 06/23/18 00:00 Blood Blood Culture - Preliminary No Growth after 72 hours 06/22/18 13:00 Blood Blood Culture - Preliminary No Growth after 72 hours 06/22/18 14:29 Leg - Left Gram Stain - Final 06/22/18 14:29 Leg - Left Wound Culture - Final Assessment and Plan (1) Abscess of antecubital fossa Current Visit: Yes Status: Acute Code(s): L02.419 - CUTANEOUS ABSCESS OF LIMB, UNSPECIFIED SNOMED Code(s): 443648578 (2) Cellulitis and abscess of left leg Current Visit: Yes Status: Acute Code(s): L03.116 - CELLULITIS OF LEFT LOWER LIMB; L02.416 - CUTANEOUS ABSCESS OF LEFT LOWER LIMB SNOMED Code(s): 445097798 (3) Neutropenia Narrative/Plan: This pleasant 58-year-old woman relates that she received her last course of chemotherapy on June 11. She did receive Neulasta. Is now had a dose of Neupogen. She was she suffered a fall in her bathroom resulted in the multiple points of trauma. He also had difficulties with her left arm which she developed phlebitis with a blood transfusion. Local wound care to the arm can be with a cool pack. K pad will be asked for the discomfort in the left thigh. Nonstick dressings will be applied to the fall related injuries to the left thigh and right trochanteric area. Given her neutropenia and concerns to sepsis she is receiving appropriate antibiotic therapy with cefepime and vancomycin for now until there is further data. The case is discussed with the general surgeon and will need some type of debridement if future when she is more stable especially to the left thigh traumatic site. 06/25/2018 patient is related to be going to the OR tomorrow for debridement of the multiple lesions generally that she'll have a platelet transfusion prior to. She is eating Neupogen white count is improving. Warm pad and cool packs are helping her discomforts. Cultures were further help direct antibiotic therapy and local wound care after debridements will likely be a silver alginate. Current Visit: Yes Status: Acute Code(s): D70.9 - NEUTROPENIA, UNSPECIFIED SNOMED Code(s): 918286614 (4) Thrombocytopenia Current Visit: Yes Status: Acute Code(s): D69.6 - THROMBOCYTOPENIA, UNSPECIFIED SNOMED Code(s): 715827359
[2018-06-26] MEDS ORDERED: PROPOFOL 10 MG/ML 20 ML VIAL IV ONE (14:00)
[2018-06-26] MEDS ORDERED: MIDAZOLAM 2 MG/2 ML VIAL ONE (14:00)
[2018-06-26] MEDS ORDERED: HYDROmorphone (PF) 1 MG/ML ONE (14:00)
[2018-06-26] MEDS ORDERED: fentaNYL (PF) 50 MCG/ML 2 ML AMP ONE (14:00)
[2018-06-26] MEDS ORDERED: ROCURONIUM BROMIDE 10 MG/ML 10 ML VIAL IV ONE (14:00)
[2018-06-26] MEDS ORDERED: LIDOCAINE 1% INJ 10MG/ML (20 ML MDV) ONE (14:00)
[2018-06-26] MEDS ORDERED: LACTATED RINGERS 1,000 ML IV ONE (14:30)
--- NOTE | 2018-06-26 15:20 | P.OP ---
Date of Procedure: 06/26/18 Preoperative Diagnosis: Traumatic hematoma left thigh, right hip, abscess left antecubital Postoperative Diagnosis: Traumatic hematoma left thigh and right hip, necrotic skin and subcutaneous tissue left antecubital Procedure(s) Performed: Excisional debridement left antecubital, left thigh, right hip Anesthesia: WILLIE Surgeon: Anna Day Pathology: other (Necrotic tissue left thigh sent for pathology. Culture was obtained left antecubital and left thigh) Condition: stable Disposition: PACU Indications for Procedure: The patient had necrotic-appearing wounds and was pancytopenic . Operative Findings: These appeared to be traumatic wounds with no obvious abscess. Description of Procedure: The patient's taken the operative suite where she is given a general endotracheal anesthetic. The areas of concern were individually scrubbed with chlorhexidine and a surgical scrub brush. There then draped in the usual sterile manner. Starting in the left antecubital area of the necrotic skin and fatty tissue were sharply debrided back to healthy bleeding tissue. Small bleeding points were controlled with electrocautery. Aquacel Ag type dressing was placed along with 4 x 4's and Coban. This area was 4 x 4.8 cm and approximately 1 cm deep. The area on the left thigh was sharply debrided with a scalpel blade. There was noted to be partial thickness skin loss but the patient didn't have any extension into the subcutaneous fatty tissue. Some of the necrotic tissue was sent for pathology and a deep culture was obtained. There is no evidence of any abscess. This was similarly dressed with Aquacel EGD-type dressing and 4 x 4's. The in size was 9 x 9 cm. The right hip was partial-thickness skin loss about 0.5 x 0.5 cm. There was superficial epithelial loss that measured a total of 7 x 3.5 cm. Similar dressing was placed. She tolerated the procedure without difficulty and is taken recovery room in satisfactory condition. According to or personnel, all counts were correct.
[2018-06-26] MEDS: VANCOMYCIN 1,500 MG in SODIUM CHLORIDE 0.9% 250 ML IVPB SCH (17:23)
--- NOTE | 2018-06-26 18:27 | P.PN ---
Subjective Progress Note Date: 06/26/18 Principal diagnosis: cancer Status post surgical intervention, resting comfortably Objective - Vital Signs Vital signs: Vital Signs Temp 97.2 F L 06/26/18 17:24 Pulse 129 H 06/26/18 17:24 Resp 16 06/26/18 17:24 BP 137/70 06/26/18 17:24 Pulse Ox 99 06/26/18 15:54 Intake & Output 06/25/18 06/26/18 06/26/18 18:59 06:59 18:59 Intake Total 4517 329 3142 Output Total 3 1 25 Balance 8442 225 8903 Intake: IV 1200 Intake, IV Titration 1150 500 Amount Cefepime 2 gm In Sodium 50 Chloride 0.9% 50 ml @ 100 mls/hr IVPB Q8HR [facility] Rx# :[id number] Sodium Chloride 0.9% 1, 600 000 ml @ 75 mls/hr IV . [id number] [facility] Rx#:[id number] Vancomycin 1,750 mg In 500 500 Sodium Chloride 0.9% 500 ml 500 ml @ 167 mls/hr IVPB Q12H [facility] Rx#: [id number] Oral 360 590 0 Blood Product 203 Platelet Pheresis Acda2 203 Unit [id number] Output: Stool 3 1 Estimated Blood Loss 25 Other: Voiding Method Toilet Toilet Toilet # Voids 3 2 - Exam - Constitutional General appearance: no acute distress - EENT Eyes: EOMI, PERRLA ENT: hearing grossly normal, normal oropharynx - Neck Neck: no lymphadenopathy Thyroid: bilateral: normal size - Respiratory Respiratory: bilateral: CTA - Cardiovascular Rhythm: regular Heart sounds: normal: S1, S2 - Gastrointestinal General gastrointestinal: normal bowel sounds, soft - Integumentary swelling, redness, tenderness left antecubital area hematoma 4-5 cm, with superficial ulcer, warmth, surrounding erythema, markedly tender, left ant thigh hematoma 3-4 cm, with superficial scabbed ulcer, warmth, surrounding erythema, markedly tender, rt hip area soft tissue - Neurologic Neurologic: CNII-XII intact - Musculoskeletal Musculoskeletal: generalized weakness, strength equal bilaterally - Psychiatric Psychiatric: A&O x's 3, appropriate affect - Labs CBC & Chem 7: 06/26/18 06:55 06/26/18 06:55 Labs: Abnormal Lab Results - Last 24 Hours (Table) 06/26/18 06/26/18 Range/Units 06:55 06:55 RBC 2.21 L (3.80-5.40) m/uL Hgb 7.1 L (11.4-16.0) gm/dL Hct 22.3 L (34.0-46.0) % MCV 100.8 H (80.0-100.0) fL RDW 19.9 H (11.5-15.5) % Plt Count 32 L (150-450) k/uL Lymphocytes # (Manual) 0.51 L (1.0-4.8) k/uL Metamyelocytes # (Man) 0.10 H (0) k/uL Myelocytes # (Manual) 0.05 H (0) k/uL Chloride 108 H (98-107) mmol/L Carbon Dioxide 19 L (22-30) mmol/L BUN 18 H (7-17) mg/dL Glucose 104 H (74-99) mg/dL Calcium 8.3 L (8.4-10.2) mg/dL Microbiology - Last 24 Hours (Table) 06/22/18 13:00 Blood Culture - Preliminary Blood No Growth after 96 hours 06/22/18 14:29 Anaerobic Culture - Final Leg - Left 06/25/18 07:40 Gram Stain - Preliminary Thigh - Left Wound Culture - Preliminary 06/23/18 00:00 Blood Culture - Preliminary Blood No Growth after 72 hours Assessment and Plan Plan: (1) Cellulitis and abscess of left leg Narrative/Plan: - Status post debridement with intraoperative infusion transfusion of platlets if platlet less than 50K - Continue current broad spectrum antibiotics with Vanco and Cefepime. - Reviewed CT findings. Current Visit: Yes Status: Acute Code(s): L03.116 - CELLULITIS OF LEFT LOWER LIMB; L02.416 - CUTANEOUS ABSCESS OF LEFT LOWER LIMB SNOMED Code(s): 220312604 (2) Pancytopenia due to antineoplastic chemotherapy Narrative/Plan: - Pt will receive 1 U PRBC. TRansfuse to keep hgb > 7 - Continue Filgrastim, as it is > 10 days since Neulasta. ANC is > 1000, but counts are actually dropping. - Plt are in a safe range at 30-40. Transfuse to keep > 10 , unless there is active bleeding Current Visit: Yes Status: Acute Code(s): D61.810 - ANTINEOPLASTIC CHEMOTHERAPY INDUCED PANCYTOPENIA; T45.1X5A - ADVERSE EFFECT OF ANTINEOPLASTIC AND IMMUNOSUP DRUGS, INIT SNOMED Code(s): 124168636705808 (3) Ovarian cancer Narrative/Plan: - Resume treatment with Dr Abdalla at [facility], once acute condition resolves sufficiently. Her next chemo is due 07/09/18 Current Visit: Yes Status: Acute Code(s): C56.9 - MALIGNANT NEOPLASM OF UNSPECIFIED OVARY SNOMED Code(s): 156252723
--- NOTE | 2018-06-26 20:43 | PN ---
PROGRESS NOTE DATE OF SERVICE: 06/25/2018 PRESENTING COMPLAINT: Infected multiple hematomas. INTERVAL HISTORY: This patient was seen by me yesterday afternoon. The patient was getting chemotherapy for ovarian cancer and presented with multiple infected hematomas at different sites of trauma in a septic picture. Fevers have continued to come down. Still these lesions are painful; the one on the thigh definitely is draining. The one on the left arm and the one of the right thigh both have a roof. Otherwise patient is tolerating a diet. Patient is due for an I&D by Dr. Day tomorrow. REVIEW OF SYSTEMS: Done for constitutional, cardiovascular, GI, pulmonary, dermatological; relevant findings as above. CURRENT MEDICATIONS: Reviewed. They include IV cefepime and vancomycin. PHYSICAL EXAMINATION: VITAL SIGNS: Temperature 97, pulse 113, respiration 16, blood pressure 122/70, pulse ox 98% on room air. GENERAL APPEARANCE: Lying in bed, awake, comfortable. EYES: Pupils equal. Conjunctivae normal. NECK: JVD not raised. Mass not palpable. RESPIRATORY: Effort normal. Lungs are clear. CARDIOVASCULAR: First and second sounds normal. No edema. ABDOMEN: Soft, non-tender. Liver and spleen not palpable. PSYCHIATRY: Alert and oriented x3. Mood and affect normal. DERMATOLOGICAL: Infected hematoma abscess present on the left forearm, left anterior thigh, lateral part of the right thigh. There is a roof on the right lateral thigh, a thin one, more congested-appearing on the left antecubital fossa distal to that. The one on the thigh is actually draining rather well. INVESTIGATIONS: White count 2.4, hemoglobin 7.0, platelets 34, potassium 3.9, BUN 18, creatinine 0.64. Complement C3 160, complement C4 31.4. ASSESSMENT: 1. Multiple areas of hematoma secondary infected causing sepsis due to poor immunity with fevers that have now come down, pending incision and drainage. 2. Pancytopenia due to chemotherapy. 3. Colon cancer. Getting chemo by Dr. Alaniz. 4. Gastroesophageal reflux disease. 5. Primary osteoarthritis. 6. 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 7. Scheduled monthly paracentesis. 8. Hiatal hernia. 9. Colonic diverticulosis. 10.Secondary ascites due to ovarian cancer. PLAN: Care was discussed with the patient. At least patient's fevers have come down. Patient will be going for I&D tomorrow. Will go from there. MMSAEED / IJN: [id number] /
--- NOTE | 2018-06-26 23:31 | PN ---
PROGRESS NOTE DATE OF SERVICE: 06/26/2018. REASON FOR FOLLOWUP: Infected multiple hematomas. INTERVAL HISTORY: This pleasant patient is undergoing chemotherapy for ovarian cancer presented with multiple infected hematomas at different sites of trauma with a septic picture. Fevers did come down with antibiotics. The patient went to the OR today by Dr. Day. Not much of any abscess was really obtained according to her. Cultures were sent off. Fevers remained down. Patient has been tolerating a diet. REVIEW OF SYSTEMS: Done for constitutional, cardiovascular, GI, pulmonary, dermatological; relevant findings as above. CURRENT MEDICATIONS: Reviewed that include IV cefepime and vancomycin. The patient also earlier today did get platelets for the procedure. PHYSICAL EXAMINATION: VITAL SIGNS: Temperature 97.2, pulse 129, respirations 16, blood pressure 137/70, pulse ox 97% on room air. GENERAL APPEARANCE: Lying in bed, awake, tired. EYES: Pupils equal. Conjunctivae pale. NECK: JVD not raised. Mass not palpable. Respiratory effort normal. LUNGS: Clear. CARDIOVASCULAR: 1st and 2nd sounds normal. No edema. ABDOMEN: Soft, nontender. Liver and spleen not palpable. PSYCHIATRY: Alert and oriented x3. Mood normal. DERMATOLOGIC: Dressing over the left arm, left thigh and the right hip. INVESTIGATIONS: White count 5.1, hemoglobin 7.1, platelets 32,000, potassium 3.8. Complement C3 of160, complement C4 of 41.4. ASSESSMENT: 1. Multiple areas hematoma secondary infected causing sepsis, status post I and D today. Not much pus was obtained, though this was day 3 of admission, on antibiotics. 2. Pancytopenia due to chemotherapy. 3. Ovarian cancer, getting chemo by Dr. Alaniz. 4. Gastroesophageal reflux disease. 5. Primary osteoarthritis. 6. 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 7. Scheduled monthly paracentesis. 8. Hiatal hernia. 9. Colonic diverticulosis. 10.Secondary ascites due to ovarian cancer. PLAN: I did discuss with Dr. Day earlier today. I also discussed with the patient. The patient was thinking about getting her abdomen tapped for the ascites. I said because of the clinical picture and since she does not have too many symptoms for ascites, we will hold off for the fear of transmitting any infection. The patient's hemoglobin is running borderline with tachycardia and this could be from the anemia itself. The patient has not been much in pain. Hence we will go ahead and transfuse a unit of blood for that reason. The patient is already on and did get some platelets earlier today. Continued antibiotics. Await culture results. MMODL / IJN: [id number] /
[2018-06-27] MEDS: HYDROcodone/APAP 5-325MG 1 EACH TAB PO PRN ×3 (01:34→10:53)
[2018-06-27] MEDS: ZOLPIDEM 5 MG TAB PO PRN ×2 (01:37→22:16)
[2018-06-27] MEDS: VANCOMYCIN 1,500 MG in SODIUM CHLORIDE 0.9% 250 ML IVPB SCH ×2 (03:06→22:13)
[2018-06-27] MEDS: SODIUM CHLORIDE 0.9% 1,000 ML IV SCH (03:06)
[2018-06-27] MEDS: MORPHINE SULFATE 4 MG/ML SYRINGE IV PRN ×3 (03:53→21:44)
[2018-06-27 07:40] LABS: Anisocytosis Moderate; HCT 21.7 % (34.0-46.0); Hypochromasia Marked; MCH 30.9 pg (25.0-35.0); MCHC 31.7 g/dL (31.0-37.0); MCV 97.4 fL (80.0-100.0); Macrocytosis Moderate; Mean Platelet Volume 8.3; Poikilocytosis Moderate; RBC 2.22 m/uL (3.80-5.40); RDW 21.2 % (11.5-15.5); WBC 7.7 k/uL (3.8-10.6)
[2018-06-27 07:57] LABS: HGB 6.9 gm/dL (11.4-16.0)
[2018-06-27 07:58] LABS: Platelet Count 56 k/uL (150-450)
[2018-06-27 08:02] LABS: ALT 30 U/L (9-52); AST 21 U/L (14-36); Albumin 2.4 g/dL (3.5-5.0); Alkaline Phosphatase 139 U/L (38-126); Anion Gap 9 mmol/L; Blood Urea Nitrogen 21 mg/dL (7-17); Calcium 8.3 mg/dL (8.4-10.2); Carbon Dioxide 20 mmol/L (22-30); Chloride 110 mmol/L (98-107); Glucose 113 mg/dL (74-99); Potassium 4.1 mmol/L (3.5-5.1); Sodium 139 mmol/L (137-145); Total Bilirubin 0.7 mg/dL (0.2-1.3); Total Protein 4.8 g/dL (6.3-8.2)
[2018-06-27] MEDS: PANTOPRAZOLE 40 MG TABLET PO SCH (09:04)
[2018-06-27] MEDS: CEFEPIME 2 GM in SODIUM CHLORIDE 0.9% 50 ML IVPB SCH ×2 (09:04→22:14)
[2018-06-27] MEDS: MULTIVITAMINS, THERA 1 EACH TAB PO SCH (09:04)
[2018-06-27] MEDS: POLYETHYLENE GLYCOL 3350 17 GM POWD.PACK PO SCH ×2 (09:12→22:14)
[2018-06-27] MEDS: FILGRASTIM-SNDZ 480 MCG/0.8 ML SYRINGE SQ SCH (10:54)
[2018-06-27] MEDS ORDERED: HYDROcodone/APAP 5-325MG 1 EACH TAB ONE ×2 (13:25)
[2018-06-27] MEDS ORDERED: MORPHINE SULFATE 4 MG/ML SYRINGE ONE ×2 (13:25)
--- NOTE | 2018-06-27 18:49 | P.PN ---
Progress Note - Text Progress Note Date: 06/27/18 The patient is postop day 1 debridement of necrotic skin and fatty tissue left antecubital area debridement of necrotic skin on left anterior thigh and right hip. She's doing well. Mild pain. Dressings are clean and dry Assessment postop day 1 debridement Plan: Await cultures. I doubt there will be any significant bacterial growth is these appeared to be more necrotic than infected lesions. Starting tomorrow she can have dressing changes every other day. Follow with wound care clinic after discharge.
--- NOTE | 2018-06-27 20:05 | PN ---
PROGRESS NOTE DATE OF SERVICE: June 27, 2018. PRESENTING COMPLAINT: Multiple hematomas infected. INTERVAL HISTORY: The patient is getting chemotherapy for ovarian cancer, presented with multiple infected hematomas, difference as a trauma. With a septic picture. Fevers have been down with antibiotics. The patient did have I and D per Dr. Day, it all just simply looked necrotic tissue. There was to be no dressing changes today. The pain is controlled. Tolerating a diet. REVIEW OF SYSTEMS: Done for constitutional, cardiovascular, GI, pulmonary and relevant findings as above. The patient's abdomen is slightly getting distended. CURRENT MEDICATIONS: Reviewed that include IV cefepime and IV vancomycin. PHYSICAL EXAMINATION: VITAL SIGNS: Temperature 97.7, pulse 104, respirations 16, blood pressure 133/64, pulse ox 100 percent on room air. GENERAL APPEARANCE: Lying in bed, comfortable, awake. EYES: Pupils equal. Conjunctivae pale. NECK: JVD not raised. Mass not palpable. RESPIRATORY: Effort normal. LUNGS are clear. CARDIOVASCULAR: 1st and 2nd sounds normal. No edema. ABDOMEN: Soft, distended, nontender. Liver and spleen not palpable. PSYCHIATRY: Alert and oriented times three. Mood and affect normal. DERMATOLOGICAL: Dressing over the left arm and left thigh and the right hip. INVESTIGATIONS: White count 6.9, platelets 56. White count 7.7, potassium 4.1, BUN 21, creatinine 0.7. Cultures negative now. ASSESSMENT: 1. Multiple of areas hematoma appeared to be secondary infected causing sepsis status post I and D only showed necrotic tissue. The patient has remained afebrile. 2. Pancytopenia due to chemotherapy. White count is now coming up. 3. Ovarian cancer getting chemo by .. 4. Gastroesophageal reflux disease. 5. Primary osteoarthritis. 6. 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 7. Scheduled paracentesis, patient secondary ascites is worsening. 8. Hiatal hernia. 9. Chronic diverticulosis. 10.Secondary ascites due to ovarian cancer, worsening. PLAN: Did talk to the patient. I did order a unit of blood. The patient's white count has actually come up. We will DC the filgrastim. The patient is getting Vanco and cefepime. We will discuss with ID if cultures remain negative. Patient may need a paracentesis before discharge. We will decide based on clinical course. MMODL / IJN: [id number] /
--- NOTE | 2018-06-27 23:34 | P.PN ---
Subjective Progress Note Date: 06/27/18 (Late entry for EMR seen and evaluated this am. ) Principal diagnosis: cancer Status post surgical intervention, resting comfortably. Hemoglobin 6.9 today and a unit of PRBC has been ordered for transfusion. Her WBC has increased. Will give Zarxio today and then discontinue as long as WBC continue to trend up and ANC greater than 1 Objective - Vital Signs Vital signs: Vital Signs Temp 96.9 F L 06/27/18 21:00 Pulse 110 H 06/27/18 21:00 Resp 20 06/27/18 21:00 BP 142/66 06/27/18 21:00 Pulse Ox 98 06/27/18 21:00 Intake & Output 06/27/18 06/27/18 06/28/18 06:59 18:59 06:59 Intake Total 2089 0 Output Total 1 Balance 2089 Intake: Intake, IV Titration 700 Amount Sodium Chloride 0.9% 1, 450 000 ml @ 75 mls/hr IV . [id number] [facility] Rx#:[id number] Vancomycin 1,500 mg In 250 Sodium Chloride 0.9% 250 ml @ 125 mls/hr IVPB Q12H [facility] Rx#:[id number] Oral 1080 Blood Product 310 0 Rc As-1 Unit 0 [id number] Rc As-1 Unit 310 [id number] Output: Stool 1 Other: Voiding Method Toilet Toilet # Voids 2 1 # Bowel Movements 1 - Exam - Constitutional General appearance: no acute distress - EENT Eyes: EOMI, PERRLA ENT: hearing grossly normal, normal oropharynx - Neck Neck: no lymphadenopathy Thyroid: bilateral: normal size - Respiratory Respiratory: bilateral: CTA - Cardiovascular Rhythm: regular, Tachy Heart sounds: normal: S1, S2 - Gastrointestinal General gastrointestinal: normal bowel sounds, soft - Integumentary swelling, redness, tenderness left antecubital area hematoma 4-5 cm, with superficial ulcer, warmth, surrounding erythema, markedly tender, left ant thigh hematoma 3-4 cm, with superficial scabbed ulcer, warmth, surrounding erythema, markedly tender, rt hip area soft tissue - Neurologic Neurologic: CNII-XII intact - Musculoskeletal Musculoskeletal: generalized weakness, strength equal bilaterally - Psychiatric Psychiatric: A&O x's 3, appropriate affect - Labs CBC & Chem 7: 06/28/18 08:50 06/28/18 08:50 Labs: Abnormal Lab Results - Last 24 Hours (Table) 06/26/18 06/27/18 06/27/18 Range/Units 10:32 07:17 07:17 RBC 2.22 L (3.80-5.40) m/uL Hgb 6.9 L* (11.4-16.0) gm/dL Hct 21.7 L (34.0-46.0) % RDW 21.2 H (11.5-15.5) % Plt Count 56 L D (150-450) k/uL Chloride 110 H (98-107) mmol/L Carbon Dioxide 20 L (22-30) mmol/L BUN 21 H (7-17) mg/dL Glucose 113 H (74-99) mg/dL Calcium 8.3 L (8.4-10.2) mg/dL Alkaline Phosphatase 139 H (38-126) U/L Total Protein 4.8 L (6.3-8.2) g/dL Albumin 2.4 L (3.5-5.0) g/dL Crossmatch See Detail Microbiology - Last 24 Hours (Table) 06/22/18 13:00 Blood Culture - Preliminary Blood No Growth after 120 hours 06/25/18 07:40 Gram Stain - Final Thigh - Left Wound Culture - Final 06/26/18 15:01 Gram Stain - Preliminary Arm - Left Wound Culture - Preliminary 06/26/18 15:01 Gram Stain - Preliminary Thigh - Left Wound Culture - Preliminary 06/23/18 00:00 Blood Culture - Preliminary Blood No Growth after 96 hours 06/26/18 15:01 Fungal Culture - Preliminary Thigh - Left 06/26/18 15:01 Anaerobic Culture - Preliminary Thigh - Left 06/26/18 15:01 Anaerobic Culture - Preliminary Arm - Left 06/26/18 15:01 Fungal Culture - Preliminary Arm - Left Assessment and Plan Plan: (1) Cellulitis and abscess of left leg Narrative/Plan: - Status post debridement with intraoperative infusion transfusion of platlets if platlet less than 50K - Continue current broad spectrum antibiotics with Vanco and Cefepime. - Reviewed CT findings. Current Visit: Yes Status: Acute Code(s): L03.116 - CELLULITIS OF LEFT LOWER LIMB; L02.416 - CUTANEOUS ABSCESS OF LEFT LOWER LIMB SNOMED Code(s): 098157593 (2) Pancytopenia due to antineoplastic chemotherapy Narrative/Plan: - One unit PRBC today (6.9) . TRansfuse to keep hgb > 7 - Discontinue Filgrastim, Neutrophils and WBC have recovered. - Plt are in a safe range at 30-50K. Transfuse to keep > 10 , unless there is active bleeding Current Visit: Yes Status: Acute Code(s): D61.810 - ANTINEOPLASTIC CHEMOTHERAPY INDUCED PANCYTOPENIA; T45.1X5A - ADVERSE EFFECT OF ANTINEOPLASTIC AND IMMUNOSUP DRUGS, INIT SNOMED Code(s): 952756458310412 (3) Ovarian cancer Narrative/Plan: - Resume treatment with Dr Abdalla at [facility], once acute condition resolves sufficiently. Her next chemo is due 07/09/18 Current Visit: Yes Status: Acute Code(s): C56.9 - MALIGNANT NEOPLASM OF UNSPECIFIED OVARY SNOMED Code(s): 598202913 Discussed with Dr. Alcazar. Improvement with antibiotics. May benefit from paracentesis prior to discharge as she has standing order as outpatient. DISPO Per Dr. Alcazar. Continue supportive care and overall improving. Irene Garcia NP
[2018-06-28] MEDS: CEFEPIME 2 GM in SODIUM CHLORIDE 0.9% 50 ML IVPB SCH ×4 (00:22→23:00)
[2018-06-28] MEDS: HYDROcodone/APAP 5-325MG 1 EACH TAB PO PRN ×6 (00:23→23:00)
[2018-06-28] MEDS: VANCOMYCIN 1,500 MG in SODIUM CHLORIDE 0.9% 250 ML IVPB SCH ×2 (02:35→14:57)
[2018-06-28] MEDS: MORPHINE SULFATE 4 MG/ML SYRINGE IV PRN ×4 (02:35→21:00)
[2018-06-28] MEDS: SODIUM CHLORIDE 0.9% 1,000 ML IV SCH ×3 (02:37→21:03)
[2018-06-28] MEDS ORDERED: VANCOMYCIN 1,250 MG in SODIUM CHLORIDE 0.9% 250 ML IVPB SCH (05:00)
[2018-06-28 07:39] LABS: Band Neutrophils % 5 %; Lymphocytes # (M) 0.92 k/uL (1.0-4.8); Metamyelocytes # (M) 0.08 k/uL (0); Metamyelocytes % 1 %; Monocytes # (M) 1.23 k/uL (0-1.0); Myelocytes # (M) 0.23 k/uL (0); Myelocytes % 3 %; Neutrophils % (M) 63 %; Nucleated Red Blood Cells 0 /100 WBC (0-0); Total Cells Counted 100
[2018-06-28] MEDS: POLYETHYLENE GLYCOL 3350 17 GM POWD.PACK PO SCH ×2 (08:47→20:59)
[2018-06-28] MEDS: PANTOPRAZOLE 40 MG TABLET PO SCH (08:50)
[2018-06-28] MEDS: MULTIVITAMINS, THERA 1 EACH TAB PO SCH (08:52)
[2018-06-28 09:39] LABS: ALT 25 U/L (9-52); AST 18 U/L (14-36); Albumin 2.6 g/dL (3.5-5.0); Alkaline Phosphatase 172 U/L (38-126); Anion Gap 11 mmol/L; Blood Urea Nitrogen 17 mg/dL (7-17); Calcium 8.5 mg/dL (8.4-10.2); Carbon Dioxide 17 mmol/L (22-30); Chloride 110 mmol/L (98-107); Glucose 114 mg/dL (74-99); Potassium 3.9 mmol/L (3.5-5.1); Sodium 138 mmol/L (137-145); Total Bilirubin 0.7 mg/dL (0.2-1.3); Total Protein 5.2 g/dL (6.3-8.2)
[2018-06-28 09:41] LABS: Anisocytosis Marked; Basophils % (A) 0 %; Eosinophils # (A) 0.1 k/uL (0-0.7); Eosinophils % (A) 0 %; HCT 27.2 % (34.0-46.0); HGB 8.4 gm/dL (11.4-16.0); Hypochromasia Marked; Lymphocytes # (A) 0.5 k/uL (1.0-4.8); Lymphocytes % (A) 4 %; MCHC 30.8 g/dL (31.0-37.0); MCV 94.4 fL (80.0-100.0); Macrocytosis Moderate; Mean Platelet Volume 8.7; Microcytosis Slight; Monocytes # (A) 0.7 k/uL (0-1.0); Monocytes % (A) 5 %; Neutrophils % (A) 88 %; Poikilocytosis Moderate; RBC 2.88 m/uL (3.80-5.40); WBC 12.6 k/uL (3.8-10.6)
[2018-06-28 10:00] LABS: RDW 25.6 % (11.5-15.5)
[2018-06-28 10:01] LABS: Platelet Count 49 k/uL (150-450)
--- NOTE | 2018-06-28 12:23 | P.PN ---
Progress Note - Text Progress Note Date: 06/28/18 The cultures have been no growth. Surgically stable for discharge when medically stable to follow up with wound care
[2018-06-28] MEDS ORDERED: VANCOMYCIN TROUGH DUE 1 EACH MISC MISCELLANE ONE (13:00)
[2018-06-28] MEDS: ZOLPIDEM 5 MG TAB PO PRN (23:00)
--- NOTE | 2018-06-29 00:22 | PN ---
PROGRESS NOTE DATE OF SERVICE: June 28, 2018. PRESENTING COMPLAINT: Multiple hematoma infection. INTERVAL HISTORY: This patient is getting chemotherapy for ovarian cancer, presented with multiple infected hematomas, status post I and D. The patient was septic on presentation, did well with antibiotics. All the cultures have come back negative and the I and D only showed simply necrotic tissue. The patient has had no more further. Had a dressing changed by Dr. Day today. Abdomen is getting distended, discomfort. The patient has got scheduled paracentesis. REVIEW OF SYSTEMS: Done for constitutional, cardiovascular, GI, pulmonary, dermatologic; relevant findings as above. CURRENT MEDICATIONS: Reviewed that include IV vancomycin and cefepime. PHYSICAL EXAMINATION: VITAL SIGNS: Temperature 97.5, pulse 120, respiratory 18, blood pressure 154/78. Pulse ox 99% on room air. GENERAL APPEARANCE: Lying in bed, awake. EYES: Pupils equal. Conjunctivae pale. NECK: JVD not raised. Mass not palpable. RESPIRATORY: Effort normal. LUNGS: Clear. CARDIOVASCULAR: 1st and 2nd sounds normal. No edema. ABDOMEN more distended, minimally tender. Liver and spleen not palpable. PSYCHIATRY: Alert and oriented times three. [place] and affect normal. DERMATOLOGICAL: Wound noted at the left thigh, right hip and the left arm. INVESTIGATIONS: White count 12.6, hemoglobin 8.4, platelets 49, potassium 3.9, BUN 17, creatinine 0.67, bicarb is 17. ASSESSMENT: 1. Multiple areas hematoma with secondary infection causing sepsis, status post I and D showing necrotic tissue. Cultures remain negative. 2. Pancytopenia due to chemotherapy, improved. 3. Ovarian cancer getting chemotherapy. 4. Gastroesophageal reflux disease. 5. Primary osteoarthritis. 6. 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 7. Scheduled monthly paracentesis with secondary ascites worsening. 8. Hiatal hernia. 9. Colonic diverticulosis. 10.Secondary ovarian cancer worsening. PLAN: Spoke to Irene from oncology team and the patient's white count has come up. The patient is Farxiga has been discontinued. Will order a therapeutic paracentesis for tomorrow. The patient should be able to be switched over to oral antibiotics. We will arrange for home dressing changes. Follow. MMODL / IJN: [id number] /
[2018-06-29] MEDS: MORPHINE SULFATE 4 MG/ML SYRINGE IV PRN ×3 (01:43→10:11)
[2018-06-29] MEDS ORDERED: VANCOMYCIN 1,250 MG in SODIUM CHLORIDE 0.9% 250 ML IVPB SCH (05:00)
[2018-06-29] MEDS: HYDROcodone/APAP 5-325MG 1 EACH TAB PO PRN ×3 (05:05→14:14)
[2018-06-29] MEDS: POLYETHYLENE GLYCOL 3350 17 GM POWD.PACK PO SCH (08:52)
[2018-06-29] MEDS: PANTOPRAZOLE 40 MG TABLET PO SCH (08:52)
[2018-06-29] MEDS: CEFEPIME 2 GM in SODIUM CHLORIDE 0.9% 50 ML IVPB SCH (08:52)
[2018-06-29 09:25] LABS: INR 0.9 (<1.2); Prothrombin Time 9.9 sec (9.0-12.0)
[2018-06-29 09:26] LABS: Mean Platelet Volume 8.5
[2018-06-29 09:29] LABS: Platelet Count 49 k/uL (150-450)
[2018-06-29] MEDS: MULTIVITAMINS, THERA 1 EACH TAB PO SCH (12:22)
[2018-06-29] MEDS ORDERED: MORPHINE ORAL SOLN 10 MG/5 ML CUP PO PRN (12:35)
[2018-06-29 14:12] VITALS: RESP 18; TEMP 97.9
[2018-06-29 15:01] VITALS: BP 156/70
[2018-06-29 15:07] VITALS: BMI 25.8
[2018-06-29 15:46] VITALS: PULSE 122
--- NOTE | 2018-06-29 15:56 | US ---
Therapeutic paracentesis. DATE OF EXAM: 06/29/2018 CLINICAL HISTORY: Ascites The procedure was discussed with the patient. The risks, complications, benefits, and alternatives we re discussed and any questions were answered. Informed consent was obtained. The patient was placed s upine on the ultrasound table and prepped and draped in the usual sterile fashion. All elements of maximal barrier technique were utilized. Under ultrasound guidance, access into the right lower quadrant was obtained, via the paracentesis catheter system and direct ultrasound guidanc e. Approximately 5.5 liters of straw-colored fluid was removed. The patient was stable throughout the pr ocedure and remained stable upon discharge from Department of Radiology. IMPRESSION: Successful therapeutic paracentesis under ultrasound guidance.
[2018-06-29] MEDS ORDERED: CEPHALEXIN 500 MG CAP PO SCH (16:00)
--- NOTE | 2018-06-29 16:04 | P.PN ---
Subjective Progress Note Date: 06/29/18 Principal diagnosis: ovarian malignancy Pt seen in f/u, she is going for paracentesis, platelets have bryan ordered for procedure. Pt states that she has had peritoneal fluid positive for malignancy in the past. She states she always feels better after paracentesis. Denies fever, nausea, has early satiety, mild SOB on exertion, denies any acute changes in bowel or bladder habits, she is fully ambulatory. Objective - Vital Signs Vital signs: Vital Signs Temp 97.9 F 06/29/18 14:10 Pulse 119 H 06/29/18 15:00 Resp 18 06/29/18 15:00 BP 156/70 06/29/18 15:00 Pulse Ox 97 06/29/18 13:45 Intake & Output 06/28/18 06/29/18 06/29/18 18:59 06:59 18:59 Intake Total 310 590 198 Output Total 2 Balance 308 590 198 Weight 74.843 kg Intake: Oral 590 Blood Product 310 198 Platelet Pheresis Acda3 198 Unit [id number] Rc As-1 Unit 310 [id number] Output: Stool 2 Other: Voiding Method Toilet Toilet Toilet # Voids 3 1 2 - Constitutional General appearance: Present: average body habitus, cooperative, no acute distress - EENT Eyes: Present: anicteric sclerae, EOMI - Respiratory Details: No respiratory distress noted - Gastrointestinal General gastrointestinal: Present: distended - Integumentary Integumentary Comment(s): left arm dressing in place - Neurologic Neurologic: Present: CNII-XII intact - Musculoskeletal Musculoskeletal: Present: strength equal bilaterally - Psychiatric Psychiatric: Present: A&O x's 3, appropriate affect, intact judgment & insight - Labs CBC & Chem 7: 06/29/18 09:02 06/28/18 08:50 Labs: Abnormal Lab Results - Last 24 Hours (Table) 06/26/18 06/29/18 Range/Units 10:32 09:02 Plt Count 49 L (150-450) k/uL Crossmatch See Detail Microbiology - Last 24 Hours (Table) 06/23/18 00:00 Blood Culture - Final Blood No Growth after 144 hours 06/22/18 13:00 Blood Culture - Final Blood No Growth after 144 hours 06/26/18 15:01 Anaerobic Culture - Preliminary Arm - Left 06/26/18 15:01 Anaerobic Culture - Preliminary Thigh - Left 06/26/18 15:01 Gram Stain - Final Arm - Left Wound Culture - Final 06/26/18 15:01 Gram Stain - Final Thigh - Left Wound Culture - Final Assessment and Plan (1) Ovarian cancer Narrative/Plan: Pt has complete 6/6 planned chemo treatments. She will follow up with her [facility] for further treatment plans-she mentioned maintenance therapy. Ok to proceed with paracentesis, platelets ordered for a count of 49,000 at the request of Radiologist and Internal Medicine Current Visit: Yes Status: Chronic Priority: Medium Code(s): C56.9 - MALIGNANT NEOPLASM OF UNSPECIFIED OVARY SNOMED Code(s): 076738377 (2) Pancytopenia due to antineoplastic chemotherapy Narrative/Plan: Pt has had PRBC transfusion, last CBC Hgb was stable Plt stable, 1 unit given for invasive procedure GCSF was given and stopped when ANC was >32206 Current Visit: Yes Status: Acute Priority: Medium Code(s): D61.810 - ANTINEOPLASTIC CHEMOTHERAPY INDUCED PANCYTOPENIA; T45.1X5A - ADVERSE EFFECT OF ANTINEOPLASTIC AND IMMUNOSUP DRUGS, INIT SNOMED Code(s): 341184117111141 (3) Cellulitis and abscess of left leg Current Visit: Yes Status: Acute Priority: High Code(s): L03.116 - CELLULITIS OF LEFT LOWER LIMB; L02.416 - CUTANEOUS ABSCESS OF LEFT LOWER LIMB SNOMED Code(s): 152833125 (4) Abscess of antecubital fossa Current Visit: Yes Status: Acute Priority: High Code(s): L02.419 - CUTANEOUS ABSCESS OF LIMB, UNSPECIFIED SNOMED Code(s): 257732522
[2018-06-29] MEDS ORDERED: DOXYCYCLINE 100 MG CAP PO SCH (21:00)
--- NOTE | 2018-07-01 12:58 | DS ---
DISCHARGE SUMMARY DATE OF ADMISSION: 06/22/2018. DATE OF DISCHARGE: 06/29/2018 FINAL DIAGNOSES: 1. Acute multiple infected hematoma causing sepsis, status post I and D with cultures negative. 2. Acute pancytopenia due to chemotherapy, improved. 3. Ovarian cancer with secondary ascites, getting chemotherapy. 4. Gastroesophageal reflux disease. 5. Primary osteoarthritis. 6. History of pulmonary embolism with inferior vena cava. 7. Secondary ascites due to malignancy worsening, status post paracentesis. 8. Hiatal hernia. 9. Colonic diverticulosis. PROCEDURE: 1. I and D of the infected hematoma. 2. Therapeutic paracentesis 5.5 L of fluid was removed. HOSPITAL COURSE: This very pleasant lady who has ovarian cancer getting chemotherapy being followed by Dr. Alaniz. Last chemotherapy was on June 11. The patient developed infection sepsis picture with hematomas in the antecubital fossa where she had IV access and the sites of injury is left anterior thigh and from a fall on the right lateral thigh. I and D was carried out, only showed infected necrotic tissue. The patient was treated with IV antibiotics empirically to which she responded well. The lesions are healing with good granulation tissue, but still rather tender. Dressing changes were being done. On the day of discharge, I spoke to Dr. Santillan and we decided on the antibiotic. Home care was arranged. Care was discussed in detail with the patient. Paracentesis was carried out. Questions were answered. Home dressing will be done. Discussion and discharge planning more than 35 minutes. CONSULTATION: Dr. Santillan from Infectious Disease; Dr. Anna Day from General Surgery: Dr. Galeana from Oncology. PHYSICAL EXAMINATION: Afebrile, pulse 119, respiration 18, blood pressure 149/70, pulse ox 97% on room air. LUNGS: Clear. ABDOMEN: Soft, nontender. PSYCH: AO x3. Patient has lesions in the left antecubital fossa, left anterior thigh, lateral thigh with dressing changes. LABS: White count 12.6, hemoglobin 8.4, potassium 3.9, BUN creatinine is normal. Platelets of 49. Patient did get transfused 3 units of blood and 3 platelets. DISCHARGE MEDICATIONS: 1. Multivitamin 1 tablet p.o. daily. 2. Prevacid 30 mg p.o. daily. 3. Zofran 1 tablet p.o. daily p.r.n. 4. MiraLAX 17 g p.o. q.12. 5. Compazine 10 mg p.o. t.i.d. p.r.n. 6. Ambien CR 12.5 p.o. q.h.s. p.r.n. 7. Keflex 500 mg p.o. t.i.d., 42 capsules. 8. Doxycycline 100 mg b.i.d., 28 capsules. 9. Braymer 5 two tablets q.4 p.r.n. Followup with her oncologist in 1 week. [facility] to follow for wound care. Follow up with Dr. Santillan in 10 days. Follow up with Dr. Erich Fisher on 07/06/2018. Wound care per Dr. Santillan. Aquacel Silver to left arm, left leg and right hip area. Wounds covered with saline moistened 4 x 4 and ABD to cover. Use role gauze where possible to secure. MMODL / IJN: [id number] /
== END 2018-06-29 15:56 | disposition home health service (06) | DRG 853 ==
LOC: EC 12:37 → 3NMEDONC 15:43
PROVIDERS: ADMIT Hospitalist; ATTEND Hospitalist
PROC: 0JBM0ZZ Excision of Left Upper Leg Subcutaneous Tissue and Fascia, Open Approach (ICD-10-PCS; principal; 2018-06-22)
PROC: 0JBL0ZZ Excision of Right Upper Leg Subcutaneous Tissue and Fascia, Open Approach (ICD-10-PCS; principal; 2018-06-22)
PROC: 0W9G3ZZ Drainage of Peritoneal Cavity, Percutaneous Approach (ICD-10-PCS; 2018-06-29)
DX: A41.9 Sepsis, unspecified organism (principal); D61.810 Antineoplastic chemotherapy induced pancytopenia; L03.116 Cellulitis of left lower limb; C18.9 Malignant neoplasm of colon, unspecified; C56.9 Malignant neoplasm of unspecified ovary; R18.8 Other ascites; L02.414 Cutaneous abscess of left upper limb; K21.9 Gastro-esophageal reflux disease without esophagitis; K44.9 Diaphragmatic hernia without obstruction or gangrene; K57.30 Diverticulosis of large intestine without perforation or abscess without bleeding; M19.91 Primary osteoarthritis, unspecified site; S70.00XA Contusion of unspecified hip, initial encounter; S70.12XA Contusion of left thigh, initial encounter; T45.1X5A Adverse effect of antineoplastic and immunosuppressive drugs, initial encounter; W19.XXXA Unspecified fall, initial encounter; Z85.3 Personal history of malignant neoplasm of breast; Z92.3 Personal history of irradiation; Z90.710 Acquired absence of both cervix and uterus; Z86.711 Personal history of pulmonary embolism; Z82.5 Family history of asthma and other chronic lower respiratory diseases; Z82.49 Family history of ischemic heart disease and other diseases of the circulatory system; Y92.002 Bathroom of unspecified non-institutional (private) residence as the place of occurrence of the external cause; Z87.440 Personal history of urinary (tract) infections
CPT/HCPCS: 36415; 49083; 71046; 80048; 80053; 80202; 82784; 83605; 85025; 85049; 85610; 85730; 86160; 86850; 86900; 86901; 86920; 87040; 87070; 87075; 87102; 87205; 87502; 88304; 93005; 96365; 96366; 96367; 96375; 96376; 99291

== ENCOUNTER 2018-08-23 13:03 | Inpatient (IN) | payer BC ==
[2018-08-23] MEDS ORDERED: SODIUM CHLORIDE 0.9% 1,000 ML IV STA (13:31)
--- NOTE | 2018-08-23 13:34 | ED ---
General Adult HPI - General Chief complaint: Shortness of Breath Stated complaint: SOB Time Seen by Provider: 08/23/18 13:07 Source: patient, EMS, RN notes reviewed, old records reviewed Mode of arrival: EMS Limitations: no limitations - History of Present Illness Initial comments: 58-year-old female states 3 ovarian cancer on chemotherapy presenting with dyspnea. Patient's symptoms progressed over approximately one hour. She has history of DVT PE. She is currently on anticoagulation and has an IVC filter however she states that she had blood clot which was above her IVC filter. Denies fever or chills. She has chronic abdominal pain which is unchanged from baseline. She was cutaneous lesions on her bilateral thighs which are healing well and she has been evaluated by multiple physicians regarding these wounds. Denies significant cough. Denies chest pain. - Related Data Home Medications Medication Instructions Recorded Confirmed Multivitamins, Thera [Multivitamin 1 tab PO DAILY 08/27/16 08/23/18 (formulary)] Ondansetron HCl [Zofran] 8 mg PO Q8H PRN 06/22/18 08/23/18 Polyethylene Glycol 3350 [Miralax] 17 gm PO DAILY PRN 06/22/18 08/23/18 Prochlorperazine [Compazine] 10 mg PO QID 06/22/18 08/23/18 Apixaban [Eliquis] 5 mg PO BID 08/23/18 08/23/18 Filgrastim [Neupogen] 300 mcg IM DAILY 08/23/18 08/23/18 Magnesium Hydroxide [Milk of 4,800 mg PO HS PRN 08/23/18 08/23/18 Magnesia] Morphine Sulfate ER [Ms Contin] 60 mg PO TID 08/23/18 08/23/18 Morphine Sulfate Ir [MSIR] 15 mg PO Q4H PRN 08/23/18 08/23/18 Olaparib [Lynparza] 300 mg PO BID 08/23/18 08/23/18 Omeprazole 20 mg PO DAILY 08/23/18 08/23/18 Triamcinolone 0.1% Cream [Kenalog 1 applicatio TOPICAL BID 08/23/18 08/23/18 0.1% Cream] Zolpidem [Ambien] 10 mg PO HS PRN 03/24/19 03/24/19 Allergies Allergy/AdvReac Type Severity Reaction Status Date / Time paclitaxel [From Taxol] Allergy Anaphylaxis Verified 08/23/18 13:46 Review of Systems ROS Statement: Those systems with pertinent positive or pertinent negative responses have been documented in the HPI. ROS Other: All systems not noted in ROS Statement are negative. Past Medical History Past Medical History: Cancer, GERD/Reflux, Osteoarthritis (OA), Pulmonary Embolus (PE) Additional Past Medical History / Comment(s): BREAST AND OVARIAN CANCER , pt stated has a Paracentesis monthly since jan 2018 , hx left breast cancer(lumpectomy and radiation tx), hiatal hernia, diverticular disease, past hx of sleep apnea-had uvula removed. History of Any Multi-Drug Resistant Organisms: MRSA Date of last positivie culture/infection: unknown MDRO Source:: skin Past Surgical History: Adenoidectomy, Bariatric Surgery, Bladder Surgery, Breast Surgery, Hysterectomy, Orthopedic Surgery, Tonsillectomy Additional Past Surgical History / Comment(s): LT BREAST BX/lumpectomy/RADIATION 2000, hysterectomy-"bowel was knicked" had sx to repair bowel, uvula removed d/t sleep apnea, rt knee meniscus repair, ivc filter 2016. rt knee meniscus repair, abd exploratory sx then 2nd sx for cancer/"debulking" Past Anesthesia/Blood Transfusion Reactions: No Reported Reaction Additional Past Anesthesia/Blood Transfusion Reaction / Comment(s): HX clausterphobia, blood transfusion-no reaction Past Psychological History: No Psychological Hx Reported Smoking Status: Never smoker Past Alcohol Use History: None Reported Past Drug Use History: None Reported - Past Family History Mother Family Medical History: No Reported History Father Family Medical History: No Reported History General Exam Limitations: no limitations General appearance: alert, in no apparent distress Head exam: Present: atraumatic, normocephalic Eye exam: Present: normal appearance, PERRL ENT exam: Present: normal exam Neck exam: Present: normal inspection. Absent: tenderness, meningismus Respiratory exam: Present: normal lung sounds bilaterally. Absent: respiratory distress, wheezes, rales Cardiovascular Exam: Present: normal rhythm, tachycardia GI/Abdominal exam: Present: soft, distended, tenderness. Absent: guarding, rebound Extremities exam: Present: normal inspection, normal capillary refill, pedal edema Neurological exam: Present: alert, oriented X3, CN II-XII intact. Absent: motor sensory deficit Psychiatric exam: Present: normal affect, normal mood Skin exam: Present: warm, dry. Absent: cyanosis, diaphoretic Course Vital Signs 08/23/18 08/23/18 08/23/18 13:09 13:18 13:33 Temperature 98.1 F Pulse Rate 128 H 126 H Pulse Rate [ 127 H [employer] ] Respiratory 18 18 Rate Blood Pressure 101/57 93/56 O2 Sat by Pulse 96 93 L Oximetry 08/23/18 15:26 Temperature Pulse Rate 112 H Pulse Rate [ [employer] Loading ] Respiratory 18 Rate Blood Pressure 100/68 O2 Sat by Pulse 99 Oximetry EKG Findings - EKG Comments: EKG Findings:: EKG: Sinus tachycardia rate of 127, WA interval 112, QRS duration [address] segment elevation or depression Medical Decision Making - Medical Decision Making 58-year-old female presenting with dyspnea, generalized weakness. Patient has ovarian cancer, stage III. She is currently undergoing treatment. History of DVT PE status post IVC filter currently on E;iquis, states that symptoms began rather quickly over approximately one hour. Emergency Department reveals EKG was sinus tachycardia, no ischemic changes per chest x-ray negative for focal pneumonia, no effusions or central pulmonary edema, no pneumothorax. Patient has hyponatremia 127, hypomagnesemia. Patient's given normal saline, magnesium replacement. Troponin is negative. Hemoglobin stable, normal white blood cell count. Patient sent for nuclear scan to evaluate for perfusion ventilation mismatch. Patient will be admitted for further evaluation treatment. Laboratory studies will be repeated. Case discussed with Dr. Alcazar will accept admission. Patient is currently undergoing treatment at [facility], depending on her course in the hospital may request transfer. Patient will agree to be admitted at this institution at this time. - Lab Data Result diagrams: 08/23/18 13:33 08/23/18 13:33 Lab Results 08/23/18 08/23/18 08/23/18 Range/Units 13:33 13:33 13:33 WBC 7.7 (3.8-10.6) k/uL RBC 3.46 L (3.80-5.40) m/uL Hgb 10.4 L (11.4-16.0) gm/dL Hct 33.8 L (34.0-46.0) % MCV 97.7 (80.0-100.0) fL MCH 30.0 (25.0-35.0) pg MCHC 30.7 L (31.0-37.0) g/dL RDW 22.2 H (11.5-15.5) % Plt Count 381 (150-450) k/uL Neutrophils % 85 % Lymphocytes % 7 % Monocytes % 7 % Eosinophils % 0 % Basophils % 0 % Neutrophils # 6.5 (1.3-7.7) k/uL Lymphocytes # 0.5 L (1.0-4.8) k/uL Monocytes # 0.5 (0-1.0) k/uL Eosinophils # 0.0 (0-0.7) k/uL Basophils # 0.0 (0-0.2) k/uL Hypochromasia Moderate Anisocytosis Moderate Macrocytosis Moderate PT (9.0-12.0) sec INR (<1.2) APTT (22.0-30.0) sec Sodium 127 L (137-145) mmol/L Potassium 4.3 (3.5-5.1) mmol/L Chloride 94 L (98-107) mmol/L Carbon Dioxide 22 (22-30) mmol/L Anion Gap 11 mmol/L BUN 59 H (7-17) mg/dL Creatinine 1.32 H (0.52-1.04) mg/dL Est GFR (CKD-EPI)AfAm 51 (>60 ml/min/1.73 sqM) Est GFR (CKD-EPI)NonAf 44 (>60 ml/min/1.73 sqM) Glucose 121 H (74-99) mg/dL Plasma Lactic Acid Esau 1.1 (0.7-2.0) mmol/L Calcium 7.4 L (8.4-10.2) mg/dL Magnesium 1.3 L (1.6-2.3) mg/dL Total Bilirubin 0.7 (0.2-1.3) mg/dL AST 22 (14-36) U/L ALT 28 (9-52) U/L Alkaline Phosphatase 199 H (38-126) U/L Troponin I (0.000-0.034) ng/mL NT-Pro-B Natriuret Pep pg/mL Total Protein 4.7 L (6.3-8.2) g/dL Albumin 2.0 L (3.5-5.0) g/dL Influenza Type A RNA (Not Detectd) Influenza Type B (PCR) (Not Detectd) 08/23/18 08/23/18 08/23/18 Range/Units 13:33 13:33 13:33 WBC (3.8-10.6) k/uL RBC (3.80-5.40) m/uL Hgb (11.4-16.0) gm/dL Hct (34.0-46.0) % MCV (80.0-100.0) fL MCH (25.0-35.0) pg MCHC (31.0-37.0) g/dL RDW (11.5-15.5) % Plt Count (150-450) k/uL Neutrophils % % Lymphocytes % % Monocytes % % Eosinophils % % Basophils % % Neutrophils # (1.3-7.7) k/uL Lymphocytes # (1.0-4.8) k/uL Monocytes # (0-1.0) k/uL Eosinophils # (0-0.7) k/uL Basophils # (0-0.2) k/uL Hypochromasia Anisocytosis Macrocytosis PT 13.4 H (9.0-12.0) sec INR 1.3 H (<1.2) APTT 32.7 H (22.0-30.0) sec Sodium (137-145) mmol/L Potassium (3.5-5.1) mmol/L Chloride (98-107) mmol/L Carbon Dioxide (22-30) mmol/L Anion Gap mmol/L BUN (7-17) mg/dL Creatinine (0.52-1.04) mg/dL Est GFR (CKD-EPI)AfAm (>60 ml/min/1.73 sqM) Est GFR (CKD-EPI)NonAf (>60 ml/min/1.73 sqM) Glucose (74-99) mg/dL Plasma Lactic Acid Esau (0.7-2.0) mmol/L Calcium (8.4-10.2) mg/dL Magnesium (1.6-2.3) mg/dL Total Bilirubin (0.2-1.3) mg/dL AST (14-36) U/L ALT (9-52) U/L Alkaline Phosphatase (38-126) U/L Troponin I <0.012 (0.000-0.034) ng/mL NT-Pro-B Natriuret Pep 808 pg/mL Total Protein (6.3-8.2) g/dL Albumin (3.5-5.0) g/dL Influenza Type A RNA (Not Detectd) Influenza Type B (PCR) (Not Detectd) 08/23/18 Range/Units 13:40 WBC (3.8-10.6) k/uL RBC (3.80-5.40) m/uL Hgb (11.4-16.0) gm/dL Hct (34.0-46.0) % MCV (80.0-100.0) fL MCH (25.0-35.0) pg MCHC (31.0-37.0) g/dL RDW (11.5-15.5) % Plt Count (150-450) k/uL Neutrophils % % Lymphocytes % % Monocytes % % Eosinophils % % Basophils % % Neutrophils # (1.3-7.7) k/uL Lymphocytes # (1.0-4.8) k/uL Monocytes # (0-1.0) k/uL Eosinophils # (0-0.7) k/uL Basophils # (0-0.2) k/uL Hypochromasia Anisocytosis Macrocytosis PT (9.0-12.0) sec INR (<1.2) APTT (22.0-30.0) sec Sodium (137-145) mmol/L Potassium (3.5-5.1) mmol/L Chloride (98-107) mmol/L Carbon Dioxide (22-30) mmol/L Anion Gap mmol/L BUN (7-17) mg/dL Creatinine (0.52-1.04) mg/dL Est GFR (CKD-EPI)AfAm (>60 ml/min/1.73 sqM) Est GFR (CKD-EPI)NonAf (>60 ml/min/1.73 sqM) Glucose (74-99) mg/dL Plasma Lactic Acid Esau (0.7-2.0) mmol/L Calcium (8.4-10.2) mg/dL Magnesium (1.6-2.3) mg/dL Total Bilirubin (0.2-1.3) mg/dL AST (14-36) U/L ALT (9-52) U/L Alkaline Phosphatase (38-126) U/L Troponin I (0.000-0.034) ng/mL NT-Pro-B Natriuret Pep pg/mL Total Protein (6.3-8.2) g/dL Albumin (3.5-5.0) g/dL Influenza Type A RNA Not Detected (Not Detectd) Influenza Type B (PCR) Not Detected (Not Detectd) Disposition Clinical Impression: Ovarian cancer, Abdominal pain, Dyspnea, Dehydration Disposition: ADMITTED IP TO THIS HOSP Condition: Stable Is patient prescribed a controlled substance at d/c from ED?: No Referrals: Erich Fisher MD [Primary Care Provider] - 1-2 days Decision to Admit Reason: Admit from EC Decision Date: 08/23/18 Decision Time: 16:54
[2018-08-23 14:19] LABS: Calcium 7.4 mg/dL (8.4-10.2); Magnesium 1.3 mg/dL (1.6-2.3); Potassium 4.3 mmol/L (3.5-5.1); Total Bilirubin 0.7 mg/dL (0.2-1.3); Total Protein 4.7 g/dL (6.3-8.2)
[2018-08-23 14:24] LABS: Anisocytosis Moderate; Basophils % (A) 0 %; Eosinophils % (A) 0 %; HCT 33.8 % (34.0-46.0); HGB 10.4 gm/dL (11.4-16.0); Hypochromasia Moderate; Lymphocytes # (A) 0.5 k/uL (1.0-4.8); Lymphocytes % (A) 7 %; MCHC 30.7 g/dL (31.0-37.0); MCV 97.7 fL (80.0-100.0); Macrocytosis Moderate; Mean Platelet Volume 7.6; Monocytes # (A) 0.5 k/uL (0-1.0); Monocytes % (A) 7 %; Neutrophils # (A) 6.5 k/uL (1.3-7.7); Neutrophils % (A) 85 %; Platelet Count 381 k/uL (150-450); RBC 3.46 m/uL (3.80-5.40); RDW 22.2 % (11.5-15.5); WBC 7.7 k/uL (3.8-10.6)
[2018-08-23 14:26] LABS: INR 1.3 (<1.2); Partial Thromboplastin Time 32.7 sec (22.0-30.0); Prothrombin Time 13.4 sec (9.0-12.0)
--- NOTE | 2018-08-23 14:33 | XR ---
EXAMINATION TYPE: XR chest 2V DATE OF EXAM: 08/23/2018 COMPARISON: 06/22/2018 HISTORY: 58 year-old female shortness of breath and difficulty breathing TECHNIQUE: AP and lateral views FINDINGS: Left axillary surgical clips. Heart normal size. Aorta and pulmonary vasculature within normal limits . No consolidation or pleural effusion. IMPRESSION: No acute cardiopulmonary process.
[2018-08-23] MEDS ORDERED: SODIUM CHLORIDE 0.9% 1,000 ML IV ONE (14:49)
[2018-08-23] MEDS ORDERED: MORPHINE SULFATE 4 MG/ML SYRINGE IVP STA (14:51)
[2018-08-23] MEDS ORDERED: ACETAMINOPHEN TAB 325 MG TAB PO PRN (16:44)
[2018-08-23] MEDS ORDERED: NALOXONE 0.4 MG/ML 1 ML VIAL IV PRN (16:44)
[2018-08-23] MEDS ORDERED: HYDROmorphone 0.5 MG/0.5 ML SYRINGE IVP PRN (16:44)
[2018-08-23] MEDS ORDERED: MAGNESIUM SULFATE-D5W PMX 1 GM in DEXTROSE/WATER 1 100ML.BAG IVPB ONE (16:51)
[2018-08-23 17:03] LABS: Appearance,Urine Cloudy (Clear); Bilirubin,Urine Negative (Negative); Blood,Urine Negative (Negative); Cellular Casts,Urine 4 /lpf (0); Color,Urine Yellow; Glucose,Urine (UA) Negative (Negative); Hyaline Casts,Urine 42 /lpf (0-2); Ketones,Urine 1+ (Negative); Leukocyte Esterase,Urine Negative (Negative); Mucus,Urine Rare /hpf; Nitrite,Urine Negative (Negative); PH, Urine 5.5 (5.0-8.0); Protein,Urine Trace (Negative); RBC,Urine 1 /hpf (0-5); Specific Gravity,Urine 1.025 (1.001-1.035); Squamous Epithelial Cell,Urine 3 /hpf (0-4); WBC,Urine 3 /hpf (0-5)
--- NOTE | 2018-08-23 17:11 | NM ---
EXAMINATION TYPE: NM pul vent and perfuse DATE OF EXAM: 08/23/2018 COMPARISON: Correlation radiograph same date HISTORY: 58-year-old female shortness of breath, assess for PE. TECHNIQUE: Utilizing inhalation of 66.2 mCi Tc 99m DTPA aerosol and intravenous injection of 5 mCi o f Tc 99m MAA, ventilation and perfusion images are acquired post injection in multiple projections. FINDINGS: Patient's arms were down by her side during imaging. Allowing for this limitation, there is no mismat ch perfusion defect or discrete ventilation defects seen. IMPRESSION: Very low probability for pulmonary embolus.
[2018-08-23] MEDS: SODIUM CHLORIDE 0.9% 1,000 ML IV SCH (18:51)
[2018-08-23] MEDS ORDERED: SODIUM CHLORIDE 0.9% 500 ML 500 ML IV ONE (19:44)
[2018-08-23] MEDS: HYDROmorphone 1 MG/ML 1 ML SYRINGE IVP PRN (20:45)
[2018-08-23] MEDS ORDERED: ONDANSETRON 4 MG TAB PO PRN (21:17)
[2018-08-23] MEDS ORDERED: ZOLPIDEM 10 MG TAB PO PRN (21:17)
[2018-08-23] MEDS ORDERED: MAGNESIUM HYDROXIDE 2,400 MG/10 ML CUP PO PRN (21:17)
[2018-08-23] MEDS ORDERED: MORPHINE SULFATE IR 15 MG TABLET PO PRN (21:17)
[2018-08-23] MEDS: OLAPARIB 300 MG PO SCH (22:19)
[2018-08-24] MEDS: PROCHLORPERAZINE 10 MG TAB PO SCH ×5 (02:15→22:07)
[2018-08-24] MEDS: TRIAMCINOLONE 0.1% CREAM 80 GM TUBE TOPICAL SCH ×3 (02:15→20:33)
[2018-08-24] MEDS: MORPHINE SULFATE ER 60 MG TABLET PO SCH ×4 (02:15→22:07)
[2018-08-24] MEDS: SODIUM CHLORIDE 0.9% 1,000 ML IV SCH ×2 (06:01→17:44)
[2018-08-24] MEDS: MULTIVITAMINS, THERA 1 EACH TAB PO SCH (08:12)
[2018-08-24] MEDS: PANTOPRAZOLE 40 MG TABLET PO SCH (08:12)
[2018-08-24 08:22] LABS: Anisocytosis Moderate; HCT 29.2 % (34.0-46.0); HGB 8.6 gm/dL (11.4-16.0); Hypochromasia Moderate; MCH 28.9 pg (25.0-35.0); MCHC 29.6 g/dL (31.0-37.0); MCV 97.8 fL (80.0-100.0); Macrocytosis Moderate; Mean Platelet Volume 8.4; Platelet Count 270 k/uL (150-450); RBC 2.98 m/uL (3.80-5.40); RDW 22.5 % (11.5-15.5)
[2018-08-24] MEDS: HYDROmorphone 1 MG/ML 1 ML SYRINGE IVP PRN (08:29)
[2018-08-24 09:13] LABS: Albumin 1.6 g/dL (3.5-5.0); Calcium 6.8 mg/dL (8.4-10.2); Magnesium 1.5 mg/dL (1.6-2.3); Potassium 4.3 mmol/L (3.5-5.1); Total Bilirubin 0.7 mg/dL (0.2-1.3); Total Protein 3.8 g/dL (6.3-8.2)
[2018-08-24] MEDS: OLAPARIB 300 MG PO SCH (09:20)
--- NOTE | 2018-08-24 11:57 | P.CNPUL ---
History of Present Illness Consult date: 08/24/18 Requesting physician: Austin Alcazar Reason for consult: dyspnea Chief complaint: Shortness of breath History of present illness: This is a very pleasant 58-year-old female patient who follows with Dr. Fisher as her primary care physician. She has a history of osteoarthritis, gastroesophageal reflux disease, obesity with previous bariatric surgery, obstructive sleep apnea with UPPP surgery. She also has a history of left breast cancer status post lumpectomy and radiation in 2000. She was also found to have stage III ovarian cancer and had a previous hysterectomy at which time her bowel was negative had bowel surgical repair. She's had a second surgery for cancer debulking. She has been followed at [facility] in [place] with Dr. Alaniz. She is currently on Lynparza 300mg BID as her oral chemotherapy agent. She is also having monthly paracentesis for abdominal ascites. She has not required a thoracentesis in the past. She has a history of PE/DVT and IVC filter placed. She states she had a CT angiogram done recently at [facility] and was found to be a clot within the filter. She's been initiated on Eliquis. She presented here to the emergency room yesterday with complaints of increasing shortness of breath and dyspnea on exertion. No real cough or congestion. No fever, chills or night sweats. No hemoptysis. Chest x-ray showed no acute pulmonary process. VQ scan showed very low probability of pulmonary embolism. White count 6.4. Hemoglobin 8.6. Platelet count 270,000. Sodium 129. Initial creatinine 1.3 to currently 1.00. Total protein 3.8. Albumin 1.6. Troponin negative times one. ProBNP 808. She is 0.9 normal saline at 75 ML's per hour. She does have some abdominal fullness. 1-2+ lower extremity peripheral edema. She also has bilateral hip wounds that were being treated in the wound Center now being followed at [facility]. Review of Systems Constitutional: Reports fatigue, Reports malaise, Reports poor appetite, Reports weakness Eyes: denies as per HPI, denies blurred vision, denies bulging eye, denies decreased vision, denies diplopia, denies discharge, denies dry eye, denies irritation, denies itching, denies pain, denies photophobia, denies loss of peripheral vision, denies loss of vision, denies tunnel vision/blind spots Ears: deny: decreased hearing, ear discharge, earache, tinnitus Ears, nose, mouth and throat: Denies headache, Denies sore throat Cardiovascular: Reports decreased exercise tolerance, Reports dyspnea on exertion, Reports shortness of breath Respiratory: Reports dyspnea Gastrointestinal: Reports bloating Genitourinary: Denies dysuria, Denies hematuria Musculoskeletal: Reports limitation of motion Integumentary: Reports wounds Neurological: Denies numbness, Denies weakness Psychiatric: Reports anxiety Endocrine: Denies fatigue, Denies weight change Hematologic/Lymphatic: Reports as per HPI Allergic/Immunologic: Reports as per HPI Past Medical History Past Medical History: Cancer, GERD/Reflux, Osteoarthritis (OA), Pulmonary Embolus (PE) Additional Past Medical History / Comment(s): BREAST AND OVARIAN CANCER , pt stated has a Paracentesis monthly since jan 2018 , hx left breast cancer(lumpectomy and radiation tx), hiatal hernia, diverticular disease, past hx of sleep apnea-had uvula removed. History of Any Multi-Drug Resistant Organisms: MRSA Date of last positivie culture/infection: unknown MDRO Source:: skin Past Surgical History: Adenoidectomy, Bariatric Surgery, Bladder Surgery, Breast Surgery, Hysterectomy, Orthopedic Surgery, Tonsillectomy Additional Past Surgical History / Comment(s): LT BREAST BX/lumpectomy/RADIATION 2000, hysterectomy-"bowel was knicked" had sx to repair bowel, uvula removed d/t sleep apnea, rt knee meniscus repair, ivc filter 2016. rt knee meniscus repair, abd exploratory sx then 2nd sx for cancer/"debulking" Past Anesthesia/Blood Transfusion Reactions: No Reported Reaction Additional Past Anesthesia/Blood Transfusion Reaction / Comment(s): HX clausterphobia, blood transfusion-no reaction Past Psychological History: No Psychological Hx Reported Additional Psychological History / Comment(s): pt is , lives in own home, spouse works out of country so nephew is staying with pt, pt drives. Smoking Status: Never smoker Past Alcohol Use History: None Reported Additional Past Alcohol Use History / Comment(s): Patient has been a lifelong nonsmoker, no marijuana use, no illicit drug use, no alcohol use. Patient lives at home with her but he is [place] for work and her nephew is living with her. There is a cat named Bk in the home. 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 Past Drug Use History: None Reported - Past Family History Mother Family Medical History: No Reported History Father Family Medical History: No Reported History Medications and Allergies Home Medications Medication Instructions Recorded Confirmed Type Multivitamins, Thera [Multivitamin 1 tab PO DAILY 08/27/16 08/23/18 History (formulary)] Ondansetron HCl [Zofran] 8 mg PO Q8H PRN 06/22/18 08/23/18 History Polyethylene Glycol 3350 [Miralax] 17 gm PO DAILY PRN 06/22/18 08/23/18 History Prochlorperazine [Compazine] 10 mg PO QID 06/22/18 08/23/18 History Apixaban [Eliquis] 5 mg PO BID 08/23/18 08/23/18 History Filgrastim [Neupogen] 300 mcg IM DAILY 08/23/18 08/23/18 History Magnesium Hydroxide [Milk of 4,800 mg PO HS PRN 08/23/18 08/23/18 History Magnesia] Morphine Sulfate ER [Ms Contin] 60 mg PO TID 08/23/18 08/23/18 History Morphine Sulfate Ir [MSIR] 15 mg PO Q4H PRN 08/23/18 08/23/18 History Olaparib [Lynparza] 300 mg PO BID 08/23/18 08/23/18 History Omeprazole 20 mg PO DAILY 08/23/18 08/23/18 History Triamcinolone 0.1% Cream [Kenalog 1 applicatio TOPICAL BID 08/23/18 08/23/18 History 0.1% Cream] Zolpidem [Ambien] 10 mg PO HS PRN 08/23/18 08/23/18 History Allergies Allergy/AdvReac Type Severity Reaction Status Date / Time paclitaxel [From Taxol] Allergy Anaphylaxis Verified 08/23/18 13:46 Physical Exam Vitals: Vital Signs Temp Pulse Pulse Resp BP BP Pulse Ox 08/24/18 08:02 96 08/24/18 05:00 96.7 F L 114 H 16 109/58 97 08/23/18 23:00 93 16 08/23/18 21:00 96.8 F L 105 H 16 119/53 97 08/23/18 19:50 97/60 08/23/18 18:24 113 H 17 103/68 100 08/23/18 17:37 112 H 18 107/68 100 08/23/18 15:26 112 H 18 100/68 99 08/23/18 13:33 126 H 18 93/56 93 L 08/23/18 13:18 127 H 08/23/18 13:09 98.1 F 128 H 18 101/57 96 Intake and Output 08/23/18 08/24/18 08/24/18 22:59 06:59 14:59 Intake Total 1320 840 Balance 1320 840 Intake: Intake, IV Titration 600 600 Amount Magnesium Sulfate-D5w Pmx 100 1 gm In Dextrose/Water 1 100ml.bag @ 100 mls/hr IVPB ONCE ONE Rx#: [id number] Sodium Chloride 0.9% 1, 600 000 ml @ 75 mls/hr IV . [id number] AUDREY Rx#:[id number] Sodium Chloride 0.9% 500 500 ml 500 ml @ 999 mls/hr IV .Q31M ONE Rx#:[id number] Oral 720 240 Other: # Voids 1 1 - Constitutional General appearance: mild distress - EENT Eyes: EOMI, PERRLA ENT: hearing grossly normal Ears: bilateral: normal - Neck Neck: normal ROM Carotids: bilateral: upstroke normal Thyroid: bilateral: normal size - Respiratory Respiratory: bilateral: CTA - Cardiovascular Rhythm: regular Heart sounds: normal: S1, S2 - Gastrointestinal General gastrointestinal: normal bowel sounds Localized gastrointestinal: tender: diffuse - Integumentary Integumentary: normal turgor - Neurologic Neurologic: CNII-XII intact - Musculoskeletal Musculoskeletal: generalized weakness - Psychiatric Psychiatric: A&O x's 3, appropriate affect, intact judgment & insight Results - Laboratory Findings CBC and BMP: 08/24/18 07:16 08/24/18 07:16 PT/INR, D-dimer PT 13.4 sec (9.0-12.0) H 08/23/18 13:33 INR 1.3 (<1.2) H 08/23/18 13:33 Abnormal lab findings: Abnormal Labs 08/23/18 08/23/18 08/23/18 13:33 13:33 13:33 RBC 3.46 L Hgb 10.4 L Hct 33.8 L MCHC 30.7 L RDW 22.2 H Lymphocytes # 0.5 L PT 13.4 H INR 1.3 H APTT 32.7 H Sodium 127 L Chloride 94 L Carbon Dioxide BUN 59 H Creatinine 1.32 H Glucose 121 H Calcium 7.4 L Magnesium 1.3 L Alkaline Phosphatase 199 H Total Protein 4.7 L Albumin 2.0 L Urine Appearance Urine Protein Urine Ketones Hyaline Casts Urine Mucus 08/23/18 08/24/18 08/24/18 15:40 07:16 07:16 RBC 2.98 L Hgb 8.6 L D Hct 29.2 L MCHC 29.6 L RDW 22.5 H Lymphocytes # PT INR APTT Sodium 129 L Chloride Carbon Dioxide 18 L BUN 57 H Creatinine Glucose Calcium 6.8 L Magnesium 1.5 L Alkaline Phosphatase 152 H Total Protein 3.8 L Albumin 1.6 L Urine Appearance Cloudy H Urine Protein Trace H Urine Ketones 1+ H Hyaline Casts 42 H Urine Mucus Rare H - Diagnostic Findings Chest x-ray: image reviewed Assessment and Plan Assessment: Impression: #1 Dyspnea of unclear etiology. Chest x-ray shows no acute pulmonary process. VQ scan revealed very low probability of PE. Possibly related to ascites and deconditioning with profound weakness, anemia. #2 Recurrent ascites secondary to stage III ovarian cancer. Had been receiving monthly paracentesis at [facility]. #3 Stage III ovarian cancer currently on oral chemotherapy agent in the form of Lynparza. #4 Acute renal failure secondary to dehydration, recovered. #5 Hyponatremia with presenting sodium of 127, currently 129. #6 Anemia current hemoglobin 8.6. #7 History of DVT/PE, status post IVC filter placement, anticoagulated with Eliquis. #8 History of obstructive sleep apnea status post UPPP. #9 History of obesity status post bariatric surgery. #10 History of hysterectomy complicated by active bowel status post bilateral repair. #11 History of abdominal exploratory surgery secondary to cancer debulking. #12 History of gastroesophageal reflux disease. #13 Osteoarthritis. Plan: The patient was seen and evaluated by Dr. Sears. Chest x-ray, VQ scan labs were all reviewed. The patient is currently stable on room air. May require a paracentesis this admission. We will increase her activity as tolerated. Assess her O2 saturations well ambulating. We'll continue to follow make further recommendations based on her clinical status. I, the cosigning physician, performed a history & physical examination of the patient. Lungs sounds are clear. Maintaining good O2 saturations in the 90s on room air. I discussed the assessment and plan of care with my nurse practitioner, Maria Teresa Doshi. I attest to the above note as dictated by her. Time with Patient: Greater than 30
[2018-08-24 12:40] LABS: Band Neutrophils % 5 %; Lymphocytes # (M) 0.44 k/uL (1.0-4.8); Metamyelocytes # (M) 0.06 k/uL (0); Metamyelocytes % 1 %; Monocytes # (M) 0.57 k/uL (0-1.0); Myelocytes # (M) 0.06 k/uL (0); Myelocytes % 1 %; Neutrophils % (M) 79 %; Nucleated Red Blood Cells 1 /100 WBC (0-0); Total Cells Counted 200; WBC 6.3 k/uL (3.8-10.6)
[2018-08-24 12:41] LABS: Crenated RBC Present; Polychromasia Present; Target Cells Present
[2018-08-24] MEDS: LYNPARZA 150 MG PO SCH ×2 (13:12→20:34)
[2018-08-24] MEDS: APIXABAN 5 MG TAB PO SCH ×2 (16:02→20:23)
[2018-08-24] MEDS: PSYLLIUM HUSK 100% 6 GM PACKET PO SCH ×3 (16:59→20:35)
[2018-08-24] MEDS: FILGRASTIM-SNDZ 300 MCG/0.5 ML SYRINGE SQ SCH (17:00)
--- NOTE | 2018-08-24 17:41 | HP ---
HISTORY AND PHYSICAL DATE OF ADMISSION: 08/23/2018 DATE OF SERVICE: 08/24/2018 PRESENTING COMPLAINT: Short of breath, tired. HISTORY OF PRESENTING COMPLAINT: This is a very pleasant 58-year-old patient with a rather extensive medical history. The patient does follow up with a family doctor, Dr. Fisher. The patient's oncologist is Dr. Davies out of the area. Chronic stable medical conditions include GERD, osteoarthritis, hiatal hernia, colonic diverticulosis. The patient has a diagnosis of ovarian cancer with intraabdominal spread. The patient is on chemotherapy by him. The patient also does get periodic paracentesis. The patient was last here in June of this year and had multiple infected-appearing hematomas. I&D was carried out at that time, and really no diagnosis was made. Subsequently she did go down to [facility] and she was diagnosed there to have pyoderma gangrenosum, and she eventually responded well to topical steroid treatments. She gets dressing changes every 48 hours. The patient is at home with a rather good support system, including her friends. 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 The patient normally has a bowel movement every other day and patient's abdominal pain does fluctuate. Appetite is not the best. There is no fever. No chills. The patient was recently in [facility] for pain control for a week and discharged about a week ago. The patient has noticed some more edema in the lower extremities and also shortness of breath. The patient is already on Eliquis. A V/Q scan was done that turned out to be low probability for PE. REVIEW OF SYSTEMS: CONSTITUTIONAL: Tired. Decreased appetite. HEENT: None. RESPIRATORY: Some shortness of breath. CARDIOVASCULAR: None. GASTROINTESTINAL: Some abdominal distention. GENITOURINARY: None. MUSCULOSKELETAL: Aches and pains in the joints. DERMATOLOGICAL: Thigh lesions. LYMPHATICS: None. PSYCHIATRY: A bit anxious. NEUROLOGICAL: None. PAST MEDICAL HISTORY: 1. GERD. 2. Osteoarthritis. 3. Pulmonary embolism, treated with inferior vena cava filter. 4. Left breast cancer, treated with lumpectomy and radiation treatment. 5. Hiatal hernia. 6. Diverticulosis. 7. Ovarian cancer, currently undergoing treatment. 8. Pyoderma gangrenosum. PAST SURGICAL HISTORY: 1. Adenoidectomy. 2. Bariatric surgery. 3. Bladder surgery. 4. Breast surgery. 5. Hysterectomy. 6. Tonsillectomy. 7. Left breast lumpectomy. 8. Radiation. 9. Uvula removed for sleep apnea. 10.Right knee meniscus. 11.TIVC filter in 2017. 12.Abdominal exploratory surgery with some debulking. SOCIAL HISTORY: . Patient works abroad in [place]. The patient has a nephew at home and home health. No smoking. No alcohol. FAMILY HISTORY: Emphysema. HOME MEDICATIONS: 1. Ambien 10 mg at bedtime p.r.n. 2. Kenalog 0.1% topically b.i.d. 3. Compazine 10 mg p.o. q.i.d. 4. MiraLAX 17 grams p.o. daily p.r.n. 5. Zofran 8 mg q.8 p.r.n. 6. Omeprazole 20 mg p.o. daily. 7. Olaparib 300 mg p.o. b.i.d. 8. Multivitamin tablet p.o. daily. 9. Morphine sulfate immediate-release 50 mg q.4 p.r.n. 10.MS Contin 60 mg p.o. t.i.d. 11.Milk of Magnesia 4800 mg at bedtime p.r.n. 12.Neupogen 300 mcg IM daily. 13.Eliquis 5 mg b.i.d. ALLERGIES: TAXOL. PHYSICAL EXAMINATION: VITAL SIGNS ON PRESENTATION: Temperature 98.1, pulse 128, respiration 18, blood pressure 101/57, pulse ox 96% on room air. GENERAL APPEARANCE: Average build. Sitting up, awake, not in distress. EYES: Pupils equal. Conjunctivae normal. HEENT: External appearance of nose and ears normal. Oral cavity normal. NECK: JVD not raised. Mass not palpable. RESPIRATORY: Effort normal. LUNGS: Slightly debridement breath sounds. CARDIOVASCULAR: First and second sounds normal. Some edema. ABDOMEN: Slight distention. Some tenderness. No guarding or rigidity. Liver and spleen not palpable. LYMPHATIC: No lymph node palpable in neck or axillae. PSYCHIATRY: Alert and oriented x3. Mood and affect normal. DERMATOLOGICAL: Left thigh lesion. INVESTIGATIONS: White count 7.7, hemoglobin 10.4, platelets 381. Potassium 4.3, sodium 127, BUN 59, creatinine 1.32. ProBNP is 808. Albumin is 2; repeat is 1.6. Patient's creatinine was 0.91 on 07/30/2018. It did come down to 1.0 today. Chest x-ray film, personally reviewed by me, shows elevated right diaphragm. EKG tracing, personally reviewed by me, shows sinus tachycardia. V/Q scan shows low probability. ASSESSMENT: 1. Acute renal failure, likely prerenal, from decreased oral intake. 2. Ovarian cancer with intraabdominal metastasis, getting chemotherapy. 3. Secondary ascites due to ovarian cancer. Gets regular paracentesis. 4. Chronic abdominal pain from ovarian cancer with localized metastasis. 5. Gastroesophageal reflux disease. 6. Primary osteoarthritis. 7. 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 Patient is on Eliquis. 8. Hiatal hernia. 9. Colonic diverticulosis. 10.Normocytic anemia secondary to malignancy. 11.Hyponatremia; suspect hypo-osmolar from decreased oral intake. 12.Hypoalbuminemia due to moderate protein-calorie malnutrition from decreased oral intake. 13.Lower extremity edema from hypoalbuminemia from third-spacing. 14.Left thigh pyoderma gangrenosum lesion. PLAN: I had a lengthy talk with the patient, her daughter and the patient's friend at the bedside. V/Q scan shows low probability. The patient does have elevated right diaphragm; that could be compromising a bit of the breathing and there could be fluid under the same. Will try to get Interventional Radiology to do a paracentesis, and that may help with the symptoms. Did talk to patient about increasing her protein intake. I will also use Capo wraps and encourage the patient to be out of bed. Pain control is in place. Other home medications are to continue. Patient's steroid dressing for the left thigh lesion is to continue. MMODL / IJN: [id number] /
[2018-08-24 18:28] LABS: ABG Base Excess -4.7 mmol/L; ABG HCO3 19 mmol/L (21-25); ABG Oxygen Saturation 95.6 % (94-97); ABG PCO2 31 mmHg (35-45); ABG PH 7.41 (7.35-7.45); ABG PO2 92 mmHg (83-108)
[2018-08-25] MEDS: SODIUM CHLORIDE 0.9% 1,000 ML IV SCH ×2 (06:11→23:36)
--- NOTE | 2018-08-25 07:22 | US ---
EXAMINATION TYPE: US abdomen limited DATE OF EXAM: 08/24/2018 COMPARISON: NONE CLINICAL HISTORY: distended/ascites. Ascites ovarian ca. FINDINGS: Targeted ultrasound was performed of the 4 abdominal quadrants to assess ascites. Ascites i s visualized all 4 quadrants. Loculated ascites has lacelike internal echoes in the right upper quadr ant. IMPRESSION: Moderate volume abdominopelvic ascites loculated in the right upper quadrant.
[2018-08-25] MEDS: LYNPARZA 150 MG PO SCH (08:42)
[2018-08-25] MEDS: PROCHLORPERAZINE 10 MG TAB PO SCH ×3 (08:43→19:32)
[2018-08-25] MEDS: MORPHINE SULFATE ER 60 MG TABLET PO SCH ×3 (08:45→23:19)
[2018-08-25] MEDS: PANTOPRAZOLE 40 MG TABLET PO SCH (08:46)
[2018-08-25] MEDS: TRIAMCINOLONE 0.1% CREAM 80 GM TUBE TOPICAL SCH ×2 (08:46→23:34)
[2018-08-25] MEDS: PSYLLIUM HUSK 100% 6 GM PACKET PO SCH ×2 (08:46→23:31)
--- NOTE | 2018-08-25 11:15 | P.PN ---
Subjective Progress Note Date: 08/25/18 Principal diagnosis: Dyspnea, multifactorial, but mostly secondary to metabolic acidosis related to renal failure, ascites, and anemia. This is a very pleasant 58-year-old female patient who follows with Dr. Fisher as her primary care physician. She has a history of osteoarthritis, gastroesophageal reflux disease, obesity with previous bariatric surgery, obstructive sleep apnea with UPPP surgery. She also has a history of left breast cancer status post lumpectomy and radiation in 2000. She was also found to have stage III ovarian cancer and had a previous hysterectomy at which time her bowel was negative had bowel surgical repair. She's had a second surgery for cancer debulking. She has been followed at [facility] in [place] with Dr. Alaniz. She is currently on Lynparza 300mg BID as her oral chemotherapy agent. She is also having monthly paracentesis for abdominal ascites. She has not required a thoracentesis in the past. She has a history of PE/DVT and IVC filter placed. She states she had a CT angiogram done recently at [facility] and was found to be a clot within the filter. She's been initiated on Eliquis. She presented here to the emergency room yesterday with complaints of increasing shortness of breath and dyspnea on exertion. No real cough or congestion. No fever, chills or night sweats. No hemoptysis. Chest x-ray showed no acute pulmonary process. VQ scan showed very low probability of pulmonary embolism. White count 6.4. Hemoglobin 8.6. Platelet count 270,000. Sodium 129. Initial creatinine 1.3 to currently 1.00. Total protein 3.8. Albumin 1.6. Troponin negative times one. ProBNP 808. She is 0.9 normal saline at 75 ML's per hour. She does have some abdominal fullness. 1-2+ lower extremity peripheral edema. She also has bilateral hip wounds that were being treated in the wound Center now being followed at [facility]. Patient was reevaluated today on 08/25/2018, basically about the same, her ABG is definitely reassuring as far as her lungs are concerned. The ABG itself does not reflect any restrictive pathology, hence there is no evidence of any lung disease based on the ABG. However the patient was noted to be metabolically acidotic, and that is related to her renal status and related to her ascites. Patient was also noted to be anemic, and I believe the anemia is another major contributing factor to her shortness of breath. Echocardiogram is pending. But clearly the patient has no significant pulmonary pathology that explains her shortness of breath. Hence the patient was updated on her condition, and I believe she will do better eventually with addressing her primary issues which is ovarian cancer ascites renal failure and metabolic acidosis. No need for any further diagnostic workup on her lungs. Objective - Vital Signs Vital signs: Vital Signs Temp 97.2 F L 08/25/18 04:37 Pulse 135 H 08/25/18 08:00 Resp 18 08/25/18 08:00 BP 94/51 08/25/18 04:37 Pulse Ox 95 08/25/18 04:37 Intake & Output 08/24/18 08/25/18 08/25/18 18:59 06:59 18:59 Intake Total 600 240 Balance 600 240 Weight 67.132 kg Intake: Intake, IV Titration 600 Amount Sodium Chloride 0.9% 1, 600 000 ml @ 75 mls/hr IV . [id number] AUDREY Rx#:[id number] Oral 240 Other: # Voids 2 2 # Bowel Movements 1 1 - Exam Physical Exam: Revealed a 58-year-old female in no distress. Looks slightly pale. On room air. Head: Atraumatic, normocephalic HEENT:: [No neck masses.] [No thyromegaly.] [No JVD.] Chest: [Clear throughout, no crackles, no rhonchi, no wheezes.] Cardiac Exam: [Normal S1 and S2, no S3 gallop, no murmur.] Abdomen: [Soft, nontender, no megaly, no rebound, no guarding, normal bowel sounds.] Extremities: [No clubbing, no edema, no cyanosis.] Neurological Exam: [No focal neurologic deficit.] Lymphatics: No lymphadenopathy. Psychiatric: Normal mood, affect and mental status examination Skin: No rashes. - Labs CBC & Chem 7: 08/24/18 07:16 08/24/18 07:16 Labs: Abnormal Lab Results - Last 24 Hours (Table) 08/24/18 08/24/18 Range/Units 07:16 18:15 Lymphocytes # (Manual) 0.44 L (1.0-4.8) k/uL Metamyelocytes # (Man) 0.06 H (0) k/uL Myelocytes # (Manual) 0.06 H (0) k/uL Nucleated RBCs 1 H (0-0) /100 WBC ABG pCO2 31 L (35-45) mmHg ABG HCO3 19 L (21-25) mmol/L Microbiology - Last 24 Hours (Table) 08/23/18 13:40 Blood Culture - Preliminary Blood No Growth after 24 hours Assessment and Plan Assessment: Impression: Dyspnea secondary to anemia and metabolic acidosis related to her acute kidney injury, possible prerenal azotemia. And secondary to ascites Recurrent ascites, related to stage III ovarian cancer, received paracentesis at [facility] in [place], may benefit from more paracentesis if the fluid gets any la rger. Acute renal failure, possible prerenal azotemia will likely improve with hydration. Hyponatremia most likely secondary to ascites. Anemia, last hemoglobin is 8.6, multifactorial. History of deep vein thromboses and pulmonary embolism, previous IVC filter placement, on anticoagulation therapy, VQ scan showed low probability for pulmonary embolism. History of GERD History of osteoarthritis. Recommendation: Patient was updated on her issue of shortness of breath, patient will likely benefit from bicarb given orally and will benefit from correction of her anemia especially if it gets any lower, but no need for any further pulmonary workup. We'll sign off, and see the patient on when necessary basis. Discussed and reviewed the findings on the ABG with the patient, and her sister at bedside. ABG showed a pO2 of 96 pCO2 of 31 pH of 7.41 and bicarb of 19. Time with Patient: Less than 30
[2018-08-25] MEDS: APIXABAN 5 MG TAB PO SCH (11:56)
--- NOTE | 2018-08-25 12:08 | ECHOF ---
Referral Reason:dyspnea/pulm htn/ MEASUREMENTS -------- HEIGHT: 170.2 cm WEIGHT: 67.1 kg BP: 125/85 RVIDd: 2.2 cm (< 3.3) IVSd: 1.0 cm (0.6 - 1.1) LVIDd: 3.5 cm (3.9 - 5.3) LVPWd: 1.0 cm (0.6 - 1.1) IVSs: 1.1 cm LVIDs: 2.8 cm LVPWs: 1.3 cm LA Diam: 2.3 cm (2.7 - 3.8) Ao Diam: 3.0 cm (2.0 - 3.7) AV Cusp: 1.7 cm (1.5 - 2.6) LA Diam: 1.9 cm (2.7 - 3.8) EPSS: 0.3 cm MV E Alvin: 0.78 m/s MV DecT: 177 ms MV A Alvin: 0.96 m/s MV E/A Ratio: 0.81 RAP: 5.00 mmHg RVSP: 31.38 mmHg MV EF SLOPE: 85.77 mm/s (70 - 150) MV EXCURSION: 2.07 cm (> 18.000) FINDINGS -------- Resting tachycardia (HR>100bpm). This was a technically difficult study with suboptimal views. The left ventricular size is normal. Left ventricular wall thickness is normal. Overall left vent ricular systolic function is low-normal with, an EF between 50 - 55 %. The right ventricle is normal in size and function. The left atrial size is normal. The right atrium is normal in size. 3 ml of Lumason was utilized for enhancement of images. Aortic valve is trileaflet and is mildly thickened. There is no evidence of aortic regurgitation. There is no evidence of aortic stenosis. The mitral valve leaflets are mildly thickened. There is trace to mild mitral regurgitation. Trace tricuspid regurgitation present. There is no evidence of pulmonary hypertension. The right ventricular systolic pressure, as measured by Doppler, is 31.38mmHg. The pulmonic valve was not well visualized. The aortic root size is normal. IVC Not well visulized. There is no pericardial effusion. CONCLUSIONS -------- 1. Resting tachycardia (HR>100bpm). 2. This was a technically difficult study with suboptimal views. 3. The left ventricular size is normal. 4. Left ventricular wall thickness is normal. 5. The left atrial size is normal. 6. 3 ml of Lumason was utilized for enhancement of images. 7. Aortic valve is trileaflet and is mildly thickened. 8. The mitral valve leaflets are mildly thickened. 9. There is trace to mild mitral regurgitation. 10. Trace tricuspid regurgitation present. 11. There is no evidence of pulmonary hypertension. 12. The right ventricular systolic pressure, as measured by Doppler, is 31.38mmHg. 13. The pulmonic valve was not well visualized. 14. The aortic root size is normal. 15. IVC Not well visulized. 16. There is no pericardial effusion. BILINGUAL SPEECH THERAPIST: William Maynard RDCS
[2018-08-25] MEDS: MULTIVITAMINS, THERA 1 EACH TAB PO SCH (12:39)
[2018-08-25] MEDS: HYDROmorphone 1 MG/ML 1 ML SYRINGE IVP PRN (12:41)
[2018-08-25] MEDS: FILGRASTIM-SNDZ 300 MCG/0.5 ML SYRINGE SQ SCH (19:32)
--- NOTE | 2018-08-25 22:19 | PN ---
PROGRESS NOTE DATE OF SERVICE: 08/25/2018 PRESENTING COMPLAINT: Tired. INTERVAL HISTORY: Patient with ovarian cancer getting chemotherapy with intraabdominal spread. Gets periodic paracentesis. Also has pyoderma gangrenosum on the left thigh. Tired. Appetite is a bit low. Patient's Eliquis has been held with a view to paracentesis. Pain is controlled. Patient's friend is at the bedside. The patient was having some trouble getting about. REVIEW OF SYSTEMS: Done for constitutional, cardiovascular, GI, pulmonary; relevant findings as above. CURRENT MEDICATIONS: Reviewed. Eliquis has been held. PHYSICAL EXAMINATION: Temperature 96.9, pulse 130, respiration 18, blood pressure 98/50, pulse ox 94% on room air. GENERAL APPEARANCE: Sitting up. Awake. EYES: Pupils equal. Conjunctivae pale. NECK: JVD unable to assess. Mass not palpable. RESPIRATORY: Effort normal. LUNGS: Slightly decreased breath sounds. CARDIOVASCULAR: First and second sounds normal. Some edema present. ABDOMEN: Some tenderness. Some distention. No guarding or rigidity. Liver and spleen not palpable. PSYCHIATRY: Alert and oriented x3. Mood and affect tired-appearing. INVESTIGATIONS: No blood work from today. Blood gases were noted. ASSESSMENT: 1. Acute renal failure, likely prerenal, from decreased oral intake, with improvement. 2. Ovarian cancer with intraabdominal metastasis, getting chemotherapy. 3. Secondary ascites secondary to ovarian cancer. Gets regular paracentesis causing abdominal pain. 4. Gastroesophageal reflux disease. 5. Primary osteoarthritis. 6. 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 Patient is on Eliquis. 7. Hiatal hernia. 8. Colonic diverticulosis. 9. Normocytic anemia secondary to malignancy. 10.Hyponatremia. Suspect hypo-osmolar from decreased oral intake. 11.Hypoalbuminemia due to moderate protein-calorie malnutrition and decreased oral intake. 12.Lower extremity edema from hypoalbuminemia from third-spacing and decreased activity. 13.Left thigh pyoderma gangrenosum lesion. PLAN: I had a very lengthy talk with the patient and her friend. Will get PT/OT to assess for inpatient rehab. Overall prognosis is guarded, given the progressive nature of the underlying disease. Patient encouraged to increase oral intake. Will add sodium bicarbonate. MMODL / IJN: [id number] /
[2018-08-25] MEDS ORDERED: ADENOSINE 3 MG/ML 2 ML VIAL IVP STA ×2 (23:00)
[2018-08-25 23:04] LABS: Glucose,Whole Blood 128 mg/dL (75-99)
[2018-08-26] MEDS: SODIUM BICARBONATE TAB 650 MG TAB PO SCH ×4 (00:02→20:43)
[2018-08-26] MEDS: LYNPARZA 150 MG PO SCH ×3 (00:02→20:43)
[2018-08-26] MEDS: PROCHLORPERAZINE 10 MG TAB PO SCH ×5 (00:02→20:42)
[2018-08-26 00:07] LABS: Anisocytosis Moderate; HGB 8.3 gm/dL (11.4-16.0); Hypochromasia Slight; MCH 29.9 pg (25.0-35.0); MCHC 30.9 g/dL (31.0-37.0); MCV 96.6 fL (80.0-100.0); Macrocytosis Moderate; Mean Platelet Volume 8.2; Platelet Count 227 k/uL (150-450); RBC 2.79 m/uL (3.80-5.40); RDW 23.1 % (11.5-15.5)
[2018-08-26 00:11] LABS: Calcium 7.1 mg/dL (8.4-10.2); Magnesium 1.6 mg/dL (1.6-2.3); Potassium 4.6 mmol/L (3.5-5.1)
[2018-08-26 00:51] LABS: Band Neutrophils % 6 %; Lymphocytes # (M) 1.08 k/uL (1.0-4.8); Metamyelocytes # (M) 0.36 k/uL (0); Metamyelocytes % 1 %; Neutrophils % (M) 85 %; Nucleated Red Blood Cells 0 /100 WBC (0-0); Poikilocytosis (M) Present; Target Cells Present; Total Cells Counted 100
[2018-08-26] MEDS: SODIUM CHLORIDE 0.9% 1,000 ML IV SCH (05:30)
[2018-08-26 05:51] LABS: Appearance,Urine Clear (Clear); Bilirubin,Urine 1+ (Negative); Blood,Urine Negative (Negative); Color,Urine Yellow; Glucose,Urine (UA) Negative (Negative); Ketones,Urine Negative (Negative); Leukocyte Esterase,Urine Negative (Negative); Nitrite,Urine Negative (Negative); PH, Urine 5.5 (5.0-8.0); Protein,Urine Trace (Negative); Specific Gravity,Urine 1.022 (1.001-1.035)
[2018-08-26 06:24] LABS: Anisocytosis Moderate; HCT 27.5 % (34.0-46.0); HGB 8.6 gm/dL (11.4-16.0); Hypochromasia Moderate; MCH 31.1 pg (25.0-35.0); MCHC 31.4 g/dL (31.0-37.0); Macrocytosis Moderate; Mean Platelet Volume 8.4; Platelet Count 227 k/uL (150-450); RBC 2.78 m/uL (3.80-5.40); RDW 22.8 % (11.5-15.5); WBC 40.3 k/uL (3.8-10.6)
[2018-08-26 06:33] LABS: Band Neutrophils % 11 %; Neutrophils % (M) 87 %; Nucleated Red Blood Cells 0 /100 WBC (0-0); Total Cells Counted 100
[2018-08-26 06:35] LABS: Howell-Jolly Bodies Present
[2018-08-26 06:39] LABS: Potassium 4.1 mmol/L (3.5-5.1)
[2018-08-26] MEDS: PIPERACILLIN-TAZOBACTAM 3.375 GM in SODIUM CHLORIDE 0.9% 100 ML IVPB SCH ×3 (09:20→23:08)
[2018-08-26] MEDS: VERAPAMIL 40 MG TAB PO SCH ×2 (09:21→20:43)
[2018-08-26] MEDS: PANTOPRAZOLE 40 MG TABLET PO SCH (09:21)
[2018-08-26] MEDS: MORPHINE SULFATE ER 60 MG TABLET PO SCH ×3 (09:21→22:05)
[2018-08-26] MEDS: PSYLLIUM HUSK 100% 6 GM PACKET PO SCH ×2 (09:21→20:41)
[2018-08-26] MEDS: MULTIVITAMINS, THERA 1 EACH TAB PO SCH (09:21)
[2018-08-26] MEDS: HEPARIN SODIUM,PORCINE 5,000 UNIT/ML 1 ML VIAL SQ SCH ×5 (09:22→23:18)
--- NOTE | 2018-08-26 09:57 | CONS ---
CONSULTATION This is a 58-year-old lady with a history of ovarian cancer with metastasis who has been admitted to the hospital a couple of days ago. However, she was quite dehydrated. There was a question of a pulmonary embolism and lung perfusion scan was apparently unremarkable. She also had an echocardiogram on Friday, which revealed preserved systolic function without pulmonary hypertension or right-sided enlargement. Last night as she was being hydrated, she went into an SVT at a rate of 180 beats per minute and I was called. I recommended adenosine to be given, but prior to the administration of adenosine as they were getting ready, she converted back to sinus rhythm at 120 beats per minute. She appears to be clinically somewhat dehydrated and has been receiving IV fluids. Her albumin level is low at 1.6 and this could explain her edema and low intravascular volume. Her troponin level is normal. BNP is normal. She is resting comfortably and she is in a sinus rhythm at 118 beats per minute. I was asked to see the patient mainly for SVT, but she has converted to sinus rhythm and she is resting comfortably. PAST MEDICAL HISTORY: This is remarkable for history of ovarian CA with mets, gastroesophageal reflux disease, osteoarthritis, has a [place] filter, remote history of DVT and pulmonary embolism with no evidence of pulmonary embolism on this admission. She is status post bariatric surgery, bladder surgery, orthopedic surgery. MEDICATIONS: Medications at home include Eliquis 5 mg b.i.d., Compazine, Zofran, morphine sulfate for pain, and omeprazole. ALLERGIES: She is allergic to TAXOL. PHYSICAL EXAMINATION: On examination, blood pressure is 98/60, pulse rate is about 110 and regular and sinus. HEENT: Unremarkable. Fundus was not examined by me. Neck is supple. No JVD. I do not hear a carotid bruit. Heart exam reveals S1, S2 with tachycardia, short systolic murmur at the left sternal border. Lungs reveal diminished air entry. Abdomen is soft. Rest of physical examination is unremarkable. The EKG this morning revealed sinus mechanism with sinus tachycardia, no acute changes. IMPRESSION: 1. Intravascular volume depletion with rehydration. 2. Hypoalbuminemia. 3. Paroxysmal supraventricular tachycardia, back in sinus rhythm. 4. History of pulmonary embolism in the past. RECOMMENDATIONS: I am recommending that we supplement and check her magnesium level. Check thyroid function level. Increase IV fluids to 150 mL/hour and start verapamil 40 mg b.i.d. and see how she does. No aggressive intervention is necessary. Her hypovolemia and low albumin level will be addressed by Dr. Sears. Prognosis remains guarded. Thank you very much for the consult. ZEENAT / RAUL: [id number] /
[2018-08-26] MEDS ORDERED: Magnesium Replacement Protocol 1 EACH MISC MISCELLANE PRN (10:29)
[2018-08-26] MEDS: TRIAMCINOLONE 0.1% CREAM 80 GM TUBE TOPICAL SCH ×2 (10:30→20:36)
--- NOTE | 2018-08-26 11:03 | P.NPCON ---
History of Present Illness - Reason for Consult acute renal failure - History of Present Illness Reason for consultation: Acute kidney injury History of present illness: Patient is a 58-year-old female seen in renal consultation for acute kidney injury. Her basic creatinine is 1 and is up to 1.35 today. Patient was initially on the medical floor and was transferred to the intensive care unit last night. Patient became dyspneic and developed SVTs. Her blood pressure was in the systolic 70s. She is currently maintained on normal saline at 150 mL an hour. She was also started on verapamil today. Her bicarb level is 15. Urine output has been about 50-60 mL an hour. No vomiting or diarrhea. Denies chest pain or shortness of breath. She does have history of ovarian cancer with metastatic disease. She is noted to have ascites and is scheduled for a paracentesis tomorrow. Admits to occasional use of nonsteroidals. No history of diabetes. Denies family history of renal disease. No hematuria or dysuria. Vital signs are stable. General: The patient appeared well nourished and normally developed. HEENT: Head exam is unremarkable. Neck is without jugular venous distension. LUNGS: Breath sounds decreased. HEART: Rate and Rhythm are regular. First and second heart sounds normal. No murmurs, rubs or gallops. ABDOMEN: Soft. Bowel sounds present. Distention noted. EXTREMITITES: Trace edema. Past Medical History Past Medical History: Cancer, GERD/Reflux, Osteoarthritis (OA), Pulmonary Embolus (PE) Additional Past Medical History / Comment(s): BREAST AND OVARIAN CANCER , pt stated has a Paracentesis monthly since jan 2018 , hx left breast cancer(lumpectomy and radiation tx), hiatal hernia, diverticular disease, past hx of sleep apnea-had uvula removed. History of Any Multi-Drug Resistant Organisms: MRSA Date of last positivie culture/infection: unknown MDRO Source:: skin Past Surgical History: Adenoidectomy, Bariatric Surgery, Bladder Surgery, Breast Surgery, Hysterectomy, Orthopedic Surgery, Tonsillectomy Additional Past Surgical History / Comment(s): LT BREAST BX/lumpectomy/RADIATION 2000, hysterectomy-"bowel was knicked" had sx to repair bowel, uvula removed d/t sleep apnea, rt knee meniscus repair, ivc filter 2016. rt knee meniscus repair, abd exploratory sx then 2nd sx for cancer/"debulking" Past Anesthesia/Blood Transfusion Reactions: No Reported Reaction Additional Past Anesthesia/Blood Transfusion Reaction / Comment(s): HX clausterphobia, blood transfusion-no reaction Past Psychological History: No Psychological Hx Reported Additional Psychological History / Comment(s): pt is , lives in own home, spouse works out of country so nephew is staying with pt, pt drives. Smoking Status: Never smoker Past Alcohol Use History: None Reported Additional Past Alcohol Use History / Comment(s): Patient has been a lifelong nonsmoker, no marijuana use, no illicit drug use, no alcohol use. Patient lives at home with her but he is [place] for work and her nephew is living with her. There is a cat named Bk in the home. 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 Past Drug Use History: None Reported - Past Family History Mother Family Medical History: No Reported History Father Family Medical History: No Reported History Medications and Allergies Home Medications Medication Instructions Recorded Confirmed Type Multivitamins, Thera [Multivitamin 1 tab PO DAILY 08/27/16 08/23/18 History (formulary)] Ondansetron HCl [Zofran] 8 mg PO Q8H PRN 06/22/18 08/23/18 History Polyethylene Glycol 3350 [Miralax] 17 gm PO DAILY PRN 06/22/18 08/23/18 History Prochlorperazine [Compazine] 10 mg PO QID 06/22/18 08/23/18 History Apixaban [Eliquis] 5 mg PO BID 08/23/18 08/23/18 History Filgrastim [Neupogen] 300 mcg IM DAILY 08/23/18 08/23/18 History Magnesium Hydroxide [Milk of 4,800 mg PO HS PRN 08/23/18 08/23/18 History Magnesia] Morphine Sulfate ER [Ms Contin] 60 mg PO TID 08/23/18 08/23/18 History Morphine Sulfate Ir [MSIR] 15 mg PO Q4H PRN 08/23/18 08/23/18 History Olaparib [Lynparza] 300 mg PO BID 08/23/18 08/23/18 History Omeprazole 20 mg PO DAILY 08/23/18 08/23/18 History Triamcinolone 0.1% Cream [Kenalog 1 applicatio TOPICAL BID 08/23/18 08/23/18 H istory 0.1% Cream] Zolpidem [Ambien] 10 mg PO HS PRN 08/23/18 08/23/18 History Allergies Allergy/AdvReac Type Severity Reaction Status Date / Time paclitaxel [From Taxol] Allergy Anaphylaxis Verified 08/23/18 13:46 Physical Exam Vitals: Vital Signs Temp Pulse Pulse Resp BP BP BP 08/26/18 08:30 14 99/74 08/26/18 08:00 96.9 F L 110 H 17 87/58 08/26/18 07:30 112 H 7 L 79/58 08/26/18 06:00 116 H 15 95/82 08/26/18 05:30 117 H 14 89/51 08/26/18 05:00 120 H 14 90/54 08/26/18 04:30 117 H 14 84/64 08/26/18 04:00 98 F 128 H 14 94/58 08/26/18 03:30 116 H 15 85/52 08/26/18 03:00 124 H 12 91/55 08/26/18 02:30 118 H 7 L 83/48 08/26/18 02:00 176 H 8 L 77/59 08/26/18 01:30 120 H 7 L 80/53 08/26/18 01:00 122 H 7 L 74/56 08/26/18 00:30 128 H 9 L 70/57 08/26/18 00:00 97.8 F 9 L 83/69 08/25/18 23:30 128 H 7 L 91/59 08/25/18 23:00 181 H 7 L 82/65 08/25/18 22:15 183 H 20 72/55 08/25/18 22:07 184 H 71/50 08/25/18 20:30 97.6 F 135 H 16 71/59 78/52 08/25/18 16:00 139 H 18 08/25/18 12:52 96.9 F L 139 H 18 BP Pulse Ox 08/26/18 08:30 98 08/26/18 08:00 99 08/26/18 07:30 98 08/26/18 06:00 98 08/26/18 05:30 99 08/26/18 05:00 99 08/26/18 04:30 98 08/26/18 04:00 97 08/26/18 03:30 98 08/26/18 03:00 98 08/26/18 02:30 98 08/26/18 02:00 97 08/26/18 01:30 98 08/26/18 01:00 98 08/26/18 00:30 97 08/26/18 00:00 98 08/25/18 23:30 96 08/25/18 23:00 97 08/25/18 22:15 95 08/25/18 22:07 08/25/18 20:30 100 08/25/18 16:00 08/25/18 12:52 98/50 94 L Intake and Output 08/25/18 08/26/18 08/26/18 22:59 06:59 14:59 Intake Total 1375 400 Output Total 300 200 Balance 1075 200 Intake: IV 1175 400 Sodium Chloride 0.9% 1, 1175 400 000 ml @ 150 mls/hr IV . Q6H40M [facility] Rx#:[id number] Oral 200 Output: Urine 300 200 Other: # Voids 2 1 # Bowel Movements 1 Weight 78.9 kg Results - Lab Results Most recent lab results ABG pH 7.41 (7.35-7.45) 08/24/18 18:15 ABG pCO2 31 mmHg (35-45) L 08/24/18 18:15 ABG pO2 92 mmHg (83-108) 08/24/18 18:15 ABG HCO3 19 mmol/L (21-25) L 08/24/18 18:15 ABG O2 Saturation 95.6 % (94-97) 08/24/18 18:15 Calcium 7.0 mg/dL (8.4-10.2) L 08/26/18 06:00 Magnesium 1.5 mg/dL (1.6-2.3) L 08/26/18 06:00 08/26/18 06:00 08/26/18 06:00 Assessment and Plan Plan: Assessment: 1. Acute kidney injury mostly prerenal secondary to hemodynamic instability and hypotension. Creatinine 1.35 today. Baseline is near 1. Urinalysis is quite benign. 2. SVTs started on verapamil today. Cardiology following. 3. Hyponatremia secondary to acute kidney injury. Improved. 4. Hypomagnesemia from poor oral intake. 5. Metabolic acidosis secondary to acute kidney injury and IV fluids. 6. Ovarian cancer with metastatic disease. 7. History of PE. Plan: Discontinue normal saline. Start isotonic sodium bicarbonate drip to be run at 100 mL an hour. 25 g of IV albumin prior to paracentesis tomorrow. An additional 25 g if more than 5 L removed. Replace magnesium. 2 g IV today. Continue to monitor renal function and urine output. Thank you for the consultation. I will continue to follow the patient with you during her hospital stay.
--- NOTE | 2018-08-26 11:35 | P.PN ---
Subjective Progress Note Date: 08/26/18 Principal diagnosis: Dyspnea, multifactorial, but mostly secondary to metabolic acidosis related to renal failure, ascites, and anemia. This is a very pleasant 58-year-old female patient who follows with Dr. Fisher as her primary care physician. She has a history of osteoarthritis, gastroesophageal reflux disease, obesity with previous bariatric surgery, obstructive sleep apnea with UPPP surgery. She also has a history of left breast cancer status post lumpectomy and radiation in 2000. She was also found to have stage III ovarian cancer and had a previous hysterectomy at which time her bowel was negative had bowel surgical repair. She's had a second surgery for cancer debulking. She has been followed at [facility] in [place] with Dr. Alaniz. She is currently on Lynparza 300mg BID as her oral chemotherapy agent. She is also having monthly paracentesis for abdominal ascites. She has not required a thoracentesis in the past. She has a history of PE/DVT and IVC filter placed. She states she had a CT angiogram done recently at [facility] and was found to be a clot within the filter. She's been initiated on Eliquis. She presented here to the emergency room yesterday with complaints of increasing shortness of breath and dyspnea on exertion. No real cough or congestion. No fever, chills or night sweats. No hemoptysis. Chest x-ray showed no acute pulmonary process. VQ scan showed very low probability of pulmonary embolism. White count 6.4. Hemoglobin 8.6. Platelet count 270,000. Sodium 129. Initial creatinine 1.3 to currently 1.00. Total protein 3.8. Albumin 1.6. Troponin negative times one. ProBNP 808. She is 0.9 normal saline at 75 ML's per hour. She does have some abdominal fullness. 1-2+ lower extremity peripheral edema. She also has bilateral hip wounds that were being treated in the wound Center now being followed at [facility]. Patient was reevaluated today on 08/25/2018, basically about the same, her ABG is definitely reassuring as far as her lungs are concerned. The ABG itself does not reflect any restrictive pathology, hence there is no evidence of any lung disease based on the ABG. However the patient was noted to be metabolically acidotic, and that is related to her renal status and related to her ascites. Patient was also noted to be anemic, and I believe the anemia is another major contributing factor to her shortness of breath. Echocardiogram is pending. But clearly the patient has no significant pulmonary pathology that explains her shortness of breath. Hence the patient was updated on her condition, and I believe she will do better eventually with addressing her primary issues which is ovarian cancer ascites renal failure and metabolic acidosis. No need for any further diagnostic workup on her lungs. Patient was reevaluated today on 08/26/2018. Last night, the patient had a sudden episode of supraventricular tachycardia, associated with hypotension, transferred to the intensive care unit, and cardiology was consulted. Patient converted on her own before receiving adencard which was recommended by cardiology over the phone. Hence the patient was kept in the intensive care unit, more fluids were given presently her IV fluid is at 1 50 mL per hour. And she was placed on oral verapamil as per cardiology on consultation. Patient continues to have low bicarb, continues to have good urine output, but she continues to have significant ascites. Scheduled to have a paracentesis pawel orrow. And in the meantime her WBC count jumped up significantly, and I'm really concerned about the possibility of spontaneous bacterial peritonitis. I added Zosyn empirically. I have also consulted nephrology because of her persistent uremia, and possible acute kidney injury could be related to prerenal etiology or hemodynamic instability or hypotension. Her urinalysis has been basically benign. Patient was started on sodium bicarb drip by nephrology. And recommended albumin to be given prior to paracentesis. Recommended also correction of her low magnesium. I have also recommended infectious disease consultation, strongly suspect that we may be dealing with abdominal sepsis. Her WBC count today is 40.3 her bicarb is 15 BUN remains unchanged compared to yesterday at 74 creatinine is 1.35. Objective - Vital Signs Vital signs: Vital Signs Temp 96.9 F L 08/26/18 08:00 Pulse 110 H 08/26/18 08:00 Resp 14 08/26/18 08:30 BP 99/74 08/26/18 08:30 Pulse Ox 98 08/26/18 08:30 Intake & Output 08/25/18 08/26/18 08/26/18 18:59 06:59 18:59 Intake Total 600 1375 400 Output Total 300 200 Balance 600 1075 200 Weight 78.9 kg Intake: IV 1175 400 Sodium Chloride 0.9% 1, 1175 400 000 ml @ 150 mls/hr IV . Q6H40M [facility] Rx#:[id number] Intake, IV Titration 600 Amount Sodium Chloride 0.9% 1, 600 000 ml @ 75 mls/hr IV . [id number] [facility] Rx#:[id number] Oral 200 Output: Urine 300 200 Other: # Voids 2 1 # Bowel Movements 1 - Exam Physical Exam: Revealed a 58-year-old female in no distress. Looks slightly pale. On room air. O2 saturation is 98% Head: Atraumatic, normocephalic HEENT:: [No neck masses.] [No thyromegaly.] [No JVD.] Chest: [Clear throughout, no crackles, no rhonchi, no wheezes.] Cardiac Exam: [Normal S1 and S2, no S3 gallop, no murmur.] Abdomen: [Soft, slightly tender to deep palpation, diminished bowel sounds, no guarding. Extremities: [No clubbing, no edema, no cyanosis.] Neurological Exam: [No focal neurologic deficit.] Lymphatics: No lymphadenopathy. Psychiatric: Normal mood, affect and mental status examination Skin: No rashes. - Labs CBC & Chem 7: 08/26/18 06:00 08/26/18 06:00 Labs: Abnormal Lab Results - Last 24 Hours (Table) 08/25/18 08/25/18 08/25/18 Range/Units 22:48 23:40 23:40 WBC 36.0 H (3.8-10.6) k/uL RBC 2.79 L (3.80-5.40) m/uL Hgb 8.3 L (11.4-16.0) gm/dL Hct 27.0 L (34.0-46.0) % MCHC 30.9 L (31.0-37.0) g/dL RDW 23.1 H (11.5-15.5) % Neutrophils # (Manual) 32.70 H (1.3-7.7) k/uL Lymphocytes # (Manual) (1.0-4.8) k/uL Monocytes # (Manual) 1.80 H (0-1.0) k/uL Metamyelocytes # (Man) 0.36 H (0) k/uL Sodium 126 L (137-145) mmol/L Carbon Dioxide 15 L (22-30) mmol/L BUN 74 H (7-17) mg/dL Creatinine 1.34 H (0.52-1.04) mg/dL Glucose 114 H (74-99) mg/dL POC Glucose (mg/dL) 128 H (75-99) mg/dL Calcium 7.1 L (8.4-10.2) mg/dL Magnesium (1.6-2.3) mg/dL Urine Protein (Negative) Urine Bilirubin (Negative) 08/26/18 08/26/18 08/26/18 Range/Units 05:15 06:00 06:00 WBC 40.3 H (3.8-10.6) k/uL RBC 2.78 L (3.80-5.40) m/uL Hgb 8.6 L (11.4-16.0) gm/dL Hct 27.5 L (34.0-46.0) % MCHC (31.0-37.0) g/dL RDW 22.8 H (11.5-15.5) % Neutrophils # (Manual) 39.40 H (1.3-7.7) k/uL Lymphocytes # (Manual) 0.40 L (1.0-4.8) k/uL Monocytes # (Manual) (0-1.0) k/uL Metamyelocytes # (Man) (0) k/uL Sodium 129 L (137-145) mmol/L Carbon Dioxide 15 L (22-30) mmol/L BUN 74 H (7-17) mg/dL Creatinine 1.35 H (0.52-1.04) mg/dL Glucose 106 H (74-99) mg/dL POC Glucose (mg/dL) (75-99) mg/dL Calcium 7.0 L (8.4-10.2) mg/dL Magnesium (1.6-2.3) mg/dL Urine Protein Trace H (Negative) Urine Bilirubin 1+ H (Negative) 08/26/18 Range/Units 06:00 WBC (3.8-10.6) k/uL RBC (3.80-5.40) m/uL Hgb (11.4-16.0) gm/dL Hct (34.0-46.0) % MCHC (31.0-37.0) g/dL RDW (11.5-15.5) % Neutrophils # (Manual) (1.3-7.7) k/uL Lymphocytes # (Manual) (1.0-4.8) k/uL Monocytes # (Manual) (0-1.0) k/uL Metamyelocytes # (Man) (0) k/uL Sodium (137-145) mmol/L Carbon Dioxide (22-30) mmol/L BUN (7-17) mg/dL Creatinine (0.52-1.04) mg/dL Glucose (74-99) mg/dL POC Glucose (mg/dL) (75-99) mg/dL Calcium (8.4-10.2) mg/dL Magnesium 1.5 L (1.6-2.3) mg/dL Urine Protein (Negative) Urine Bilirubin (Negative) Microbiology - Last 24 Hours (Table) 08/23/18 13:40 Blood Culture - Preliminary Blood No Growth after 48 hours Assessment and Plan Assessment: Impression: Dyspnea secondary to anemia and metabolic acidosis related to her acute kidney injury, possible prerenal azotemia. And secondary to ascites Recurrent ascites, related to stage III ovarian cancer, received paracentesis at [facility] in [place], may benefit from more paracentesis if the fluid gets any larger. There is possibly some concern about spontaneous bacterial peritonitis, and the fluid will be sent for cultures once removed tomorrow. In the meantime we'll continue Zosyn. Acute renal failure, possible prerenal azotemia will likely improve with hydra tion. Nephrology was consulted since the patient was not making much improvement with hydration. Hyponatremia most likely secondary to ascites. Anemia, last hemoglobin is 8.6, multifactorial. History of deep vein thromboses and pulmonary embolism, previous IVC filter placement, on anticoagulation therapy, VQ scan showed low probability for pulmonary embolism. History of GERD History of osteoarthritis. Supraventricular tachycardia, resolved on its own, verapamil was started by cardiology. Ovarian cancer with metastatic disease History of pulmonary embolism previous IVC filter placement, patient is on anticoagulation therapy. Acute metabolic acidosis secondary to acute kidney injury. Presently on bicarb drip, and patient is being cautiously hydrated. Acute leukocytosis, possible spontaneous bacterial peritonitis, patient is now on Zosyn. Infectious disease consultation was initiated. Recommendation: Continue to monitor the patient in the intensive care unit for the next 24 hours. Consult nephrology and infectious disease started Zosyn empirically, patient is scheduled to have paracentesis tomorrow. Agree with the bicarb drip. Agree with paracentesis as scheduled tomorrow. Continue verapamil and monitor her cardiac condition in the ICU for now. Resume anticoagulations therapy after paracentesis. Long-term prognosis remains very poor and guarded, discussed her condition with her today with the patient and with her sister at bedside. We'll continue to follow. Time with Patient: Less than 30
[2018-08-26] MEDS: DEXTROSE 5% IN WATER 1,000 ML with SODIUM BICARB (1 MEQ/ML) 150 ML IV SCH ×2 (11:55→23:16)
[2018-08-26] MEDS: MAGNESIUM SULFATE-D5W PMX 1 GM in DEXTROSE/WATER 1 100ML.BAG IVPB SCH ×2 (11:55→17:18)
--- NOTE | 2018-08-26 20:27 | PN ---
PROGRESS NOTE DATE OF SERVICE: 08/26/2018 PRESENTING COMPLAINT: Tired. INTERVAL HISTORY: This is a patient with metastatic ovarian cancer getting chemotherapy with intraabdominal spread. The patient gets periodic paracentesis. 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 Last evening patient went into SVT with rapid ventricular rate, dropped her blood pressure to 70 systolic, had to be moved to the ICU. The patient subsequently converted back to sinus rhythm. The patient just feels tired and rundown, is on a nasal cannula. The patient is also in renal failure, getting fluids. The patient feels tired and rundown. REVIEW OF SYSTEMS: Done for constitutional, cardiovascular, GI, pulmonary; relevant findings as above. CURRENT MEDICATIONS: Reviewed. They include bicarbonate drip, subcutaneous heparin, pain medications, verapamil. PHYSICAL EXAMINATION: Temperature 96.9, pulse 107, respiration 12, blood pressure 92/52, pulse ox 96% on nasal cannula. GENERAL APPEARANCE: Lying in bed. Very tired-appearing. EYES: Pupils equal. Conjunctivae pale. NECK: JVD unable to assess. Mass not palpable. RESPIRATORY: Effort increased. LUNGS: Decreased breath sounds. CARDIOVASCULAR: First and second sounds normal. Edema present. ABDOMEN: Distended, soft. Diffuse tenderness. Liver and spleen not palpable. PSYCHIATRY: Alert and oriented x3 but tired-appearing. INVESTIGATIONS: White count 40.3, hemoglobin 8.6, potassium 4.1, BUN 74, creatinine 1.35. ASSESSMENT: 1. Acute renal failure, likely prerenal, multifactorial. 2. Ovarian cancer with intraabdominal metastasis. 3. Secondary ascites secondary to ovarian cancer, pending to be tapped. 4. Gastroesophageal reflux disease. 5. Primary osteoarthritis. 6. 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 Patient is on Eliquis, currently held for the paracentesis. 7. Hiatal hernia. 8. Colonic diverticulosis. 9. Normocytic anemia secondary to malignancy. 10.Hyponatremia; suspect hypo-osmolar. 11.Hypoalbuminemia due to moderate protein-calorie malnutrition. 12.Lower extremity edema from hypoalbuminemia and third spacing. 13.Left thigh pyoderma gangrenosum lesion. 14.Paroxysmal supraventricular tachycardia. 15.Hypotension from volume loss. PLAN: The patient remains rather sick in the ICU, being followed by multiple consultants, getting IV fluids. She was also started on verapamil, which is further affecting also her blood pressure. Prognosis is guarded. ADVANCED CARE PLANNING: This was discussed with the patient. A couple of her friends were present. She understands that her overall prognosis is guarded. She does not want any artificial means. After discussion, she decided to proceed with DO NOT RESUSCITATE. She does not want to be intubated or to be shocked, understanding her overall condition. Additional 30 minutes was spent on this aspect of the case. Patient to remain in the ICU. MMODL / IJN: [id number] /
--- NOTE | 2018-08-26 22:45 | P.CONS ---
History of Present Illness - Reason for Consult Consult date: 08/26/18 - Chief Complaint weakness - History of Present Illness 58-year-old female presents to Hospital feeling quite weak and ill. She has the known history of current metastatic ovarian carcinoma with recurrent ascites. She is currently treated with Lynparza and recurrent paracentesis for symptomatic control. She follows with Dr. Alaniz in [facility] cancer. She does have known history of prior breast carcinoma that was treated with lumpectomy and radiation therapy. At presentation she was weak and acutely ill and brought into hospital with evidence of acute kidney injury and dehydration. This is being treated however she then developed a rapid heart rate did spontaneously convert. She however was transferred to intensive care unit is being monitored. She does feel better than yesterday but still is with ongoing illness. Paracentesis is planned for tomorrow. Infectious disease consultation requested regarding the worsening of her abdominal pain, the ongoing ascites and the significant leukocytosis that has developed. She feels chilled but is not having high-grade fevers or rigors. With hydration her acute renal failure seems to be improving and she has had no further cardiac dysrhythmia. She does have evidence of pyoderma to the left anterior thigh and right latera there is being treated with topical and occlusive dressing. The family relates has been marked improvement of the disease state with the current treatment. Review of Systems 58-year-old woman weak tired with on going abdominal pain HEENT:Denies headache or acute visual change. Denies sinus or mouth discomforts. Denies neck stiffness or pain. Denies significant oral cavity pain. Denies difficulty on swallowing. Lungs: Denies significant shortness of breath, cough, sputum production, or hemoptysis. Cardiovascular: Denies significant shortness of breath, chest pain, chest wall pain, orthopnea, dyspnea on exertion, syncope Gastrointestinal:appetite is poor, has some abdominal distention and worsened ascites significant nausea or emesis or hematemesis, no melena or hematochezia. Musculoskeletal: generalized weakness Skin: Ulcerations as per the HPI to the left anterior thigh and right lateral hip Neuro: Denies headache or visual change. Denies any new onset weakness or difficulty with ambulation. Denies falls or seizures. Psychiatric:generalized weakness and depression Endocrine: fatigue and weight loss Past Medical History Past Medical History: Cancer, GERD/Reflux, Osteoarthritis (OA), Pulmonary Embolus (PE) Additional Past Medical History / Comment(s): BREAST AND OVARIAN CANCER , pt stated has a Paracentesis monthly since jan 2018 , hx left breast cancer(lumpectomy and radiation tx), hiatal hernia, diverticular disease, past hx of sleep apnea-had uvula removed. History of Any Multi-Drug Resistant Organisms: MRSA Year Discovered:: unknown MDRO Source:: skin Past Surgical History: Adenoidectomy, Bariatric Surgery, Bladder Surgery, Breast Surgery, Hysterectomy, Orthopedic Surgery, Tonsillectomy Additional Past Surgical History / Comment(s): LT BREAST BX/lumpectomy/RADIATION 2000, hysterectomy-"bowel was knicked" had sx to repair bowel, uvula removed d/t sleep apnea, rt knee meniscus repair, ivc filter 2016. rt knee meniscus repair, abd exploratory sx then 2nd sx for cancer/"debulking" Past Anesthesia/Blood Transfusion Reactions: No Reported Reaction Additional Past Anesthesia/Blood Transfusion Reaction / Comm: HX clausterphobia, blood transfusion-no reaction Past Psychological History: No Psychological Hx Reported Additional Psychological History / Comment(s): pt is , lives in own home, spouse works out of country so nephew is staying with pt, pt drives. Spouse works in [place]. She has traveled there it has been through [place] including [place] in the [place]. Denies significant illnesses during her trips. No experience. Pet cat lives in the home and the nephew takes care of her while she is in hospital. She does not work out of the home currently. Not a current tobacco smoker and no history of alcohol or recreational drug use is related Smoking Status: Never smoker Past Alcohol Use History: None Reported Additional Past Alcohol Use History / Comment(s): Patient has been a lifelong nonsmoker, no marijuana use, no illicit drug use, no alcohol use. Patient lives at home with her but he is overseas for work and her nephew is living with her. There is a cat named Bk in the home. 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 Past Drug Use History: None Reported - Past Family History Mother Family Medical History: No Reported History Father Family Medical History: No Reported History Medications and Allergies Home Medications and Allergies Comment(s): Current Medications Acetaminophen (Tylenol Tab) 650 mg PO Q6HR PRN PRN Reason: Mild Pain or Fever > 100.5 Heparin Sodium (Porcine) (Heparin) 5,000 unit SQ Q8HR [facility] Last Admin: 08/26/18 17:38 Dose: Not Given Documented by: Hydromorphone HCl (Dilaudid) 0.5 mg IVP Q3HR PRN PRN Reason: Moderate Pain Hydromorphone HCl (Dilaudid) 1 mg IVP Q3HR PRN PRN Reason: Severe Pain Last Admin: 08/25/18 12:41 Dose: 1 mg Documented by: Piperacillin Sod/Tazobactam (Sod 3.375 gm/ Sodium Chloride) 100 mls @ 25 mls/hr IVPB Q8HR [facility] Last Admin: 08/26/18 17:22 Dose: 25 mls/hr Documented by: Sodium Bicarbonate 150 ml/ (Dextrose/Water) 1,150 mls @ 100 mls/hr IV .[id number] [facility] Last Admin: 08/26/18 11:55 Dose: 100 mls/hr Documented by: Magnesium Hydroxide (Milk Of Magnesia) 2,400 mg PO HS PRN PRN Reason: Constipation Miscellaneous Information (Magnesium Per Protocol) 1 each MISCELLANE DAILY PRN; Protocol PRN Reason: Per Protocol Morphine Sulfate (Ms Contin) 60 mg PO TID [facility] Last Admin: 08/26/18 22:05 Dose: 60 mg Documented by: Morphine Sulfate (Msir) 15 mg PO Q4H PRN PRN Reason: Pain Multivitamins (Theragran) 1 each PO DAILY@1200 [facility] Last Admin: 08/26/18 09:21 Dose: 1 each Documented by: Naloxone HCl (Narcan) 0.2 mg IV Q2M PRN PRN Reason: Opioid Reversal Ondansetron HCl (Zofran) 8 mg PO Q8H PRN PRN Reason: Nausea And Vomiting Pantoprazole Sodium (Protonix) 40 mg PO DAILY [facility] Last Admin: 08/26/18 09:21 Dose: 40 mg Documented by: Prochlorperazine Maleate (Compazine) 10 mg PO QID [facility] Last Admin: 08/26/18 20:42 Dose: 10 mg Documented by: Psyllium Hydrophilic Mucilloid (Metamucil) 6 gm PO BID [facility] Last Admin: 08/26/18 20:41 Dose: 6 gm Documented by: Sodium Bicarbonate (Sodium Bicarbonate Tab) 650 mg PO TID [facility] Last Admin: 08/26/18 20:43 Dose: 650 mg Documented by: Triamcinolone Acetonide (Kenalog) 1 applic TOPICAL BID [facility] Last Admin: 08/26/18 20:36 Dose: Not Given Documented by: Verapamil HCl (Isoptin) 40 mg PO BID [facility] Last Admin: 08/26/18 20:43 Dose: 40 mg Documented by: Zolpidem Tartrate (Ambien) 10 mg PO HS PRN PRN Reason: Insomnia Home Medications Medication Instructions Recorded Confirmed Type Multivitamins, Thera [Multivitamin 1 tab PO DAILY 08/27/16 08/23/18 History (formulary)] Ondansetron HCl [Zofran] 8 mg PO Q8H PRN 06/22/18 08/23/18 History Polyethylene Glycol 3350 [Miralax] 17 gm PO DAILY PRN 06/22/18 08/23/18 History Prochlorperazine [Compazine] 10 mg PO QID 06/22/18 08/23/18 History Apixaban [Eliquis] 5 mg PO BID 08/23/18 08/23/18 History Filgrastim [Neupogen] 300 mcg IM DAILY 08/23/18 08/23/18 History Magnesium Hydroxide [Milk of 4,800 mg PO HS PRN 08/23/18 08/23/18 History Magnesia] Morphine Sulfate ER [Ms Contin] 60 mg PO TID 08/23/18 08/23/18 History Morphine Sulfate Ir [MSIR] 15 mg PO Q4H PRN 08/23/18 08/23/18 History Olaparib [Lynparza] 300 mg PO BID 08/23/18 08/23/18 History Omeprazole 20 mg PO DAILY 08/23/18 08/23/18 History Triamcinolone 0.1% Cream [Kenalog 1 applicatio TOPICAL BID 08/23/18 08/23/18 History 0.1% Cream] Zolpidem [Ambien] 10 mg PO HS PRN 08/23/18 08/23/18 History Allergies Allergy/AdvReac Type Severity Reaction Status Date / Time paclitaxel [From Taxol] Allergy Anaphylaxis Verified 08/23/18 13:46 Physical Exam Vitals: Vital Signs Temp Pulse Pulse Resp BP BP Pulse Ox 08/26/18 19:30 108 H 14 75/52 98 08/26/18 19:00 108 H 16 95/56 100 08/26/18 18:30 111 H 13 82/57 100 08/26/18 18:00 113 H 13 83/64 99 08/26/18 17:30 115 H 13 79/48 98 08/26/18 17:00 108 H 17 87/64 100 08/26/18 16:30 117 H 12 81/53 98 08/26/18 16:00 97.4 F L 107 H 13 85/52 99 08/26/18 15:30 108 H 12 93/57 98 08/26/18 15:00 13 102/60 98 08/26/18 14:30 105 H 13 83/58 98 08/26/18 14:00 112 H 14 87/56 98 08/26/18 13:30 109 H 12 84/49 98 08/26/18 13:00 107 H 11 L 91/56 99 08/26/18 12:30 113 H 15 89/54 99 08/26/18 12:00 96.9 F L 107 H 12 92/52 96 08/26/18 11:30 112 H 12 87/58 99 08/26/18 11:00 106 H 15 89/52 99 08/26/18 10:30 104 H 11 L 79/51 100 08/26/18 10:00 108 H 14 89/58 99 08/26/18 09:30 113 H 12 84/60 100 08/26/18 09:00 112 H 14 90/55 89 L 08/26/18 08:30 14 99/74 98 08/26/18 08:00 96.9 F L 110 H 17 87/58 99 08/26/18 07:30 112 H 7 L 79/58 98 08/26/18 06:00 116 H 15 95/82 98 08/26/18 05:30 117 H 14 89/51 99 08/26/18 05:00 120 H 14 90/54 99 08/26/18 04:30 117 H 14 84/64 98 08/26/18 04:00 98 F 128 H 14 94/58 97 08/26/18 03:30 116 H 15 85/52 98 08/26/18 03:00 124 H 12 91/55 98 08/26/18 02:30 118 H 7 L 83/48 98 08/26/18 02:00 176 H 8 L 77/59 97 08/26/18 01:30 120 H 7 L 80/53 98 08/26/18 01:00 122 H 7 L 74/56 98 08/26/18 00:30 128 H 9 L 70/57 97 08/26/18 00:00 97.8 F 9 L 83/69 98 08/25/18 23:30 128 H 7 L 91/59 96 08/25/18 23:00 181 H 7 L 82/65 97 08/25/18 22:15 183 H 20 72/55 95 08/25/18 22:07 184 H 71/50 Intake and Output 08/26/18 08/26/18 08/26/18 06:59 14:59 22:59 Intake Total 1375 1850 599.6 Output Total 300 405 165 Balance 1075 1445 434.6 Intake: IV 1175 1350 599.6 Dextrose 5% in Water 1, 300 400 000 ml @ 100 mls/hr IV . [id number] AUDREY with Sodium Bicarb (1 Meq/ml) 150 ml Rx#:[id number] Magnesium Sulfate-D5w Pmx 100 99.6 1 gm In Dextrose/Water 1 100ml.bag @ 100 mls/hr IVPB Q1H [facility] Rx#: [id number] Piperacillin-Tazobactam 3 100 100 .375 gm In Sodium Chloride 0.9% 100 ml @ 25 mls/hr IVPB Q8HR [facility] Rx# :[id number] Sodium Chloride 0.9% 1, 1175 850 000 ml @ 150 mls/hr IV . Q6H40M [facility] Rx#:[id number] Oral 200 500 Output: Urine 300 405 165 Other: Voiding Method Indwelling Catheter # Voids 1 Weight 78.9 kg 58-year-old woman who appears to be uncomfortable and chronically ill HEENT: Anicteric conjunctiva are pale but moist nasal mucosa grossly intact without significant lesions, there is no thrush.permanent makeup on the eyes is noted Neck: The neck is supple without significant lymphadenopathy or thyromegaly. Lungs: Good bilateral air entry without significant crackles or wheezing. There is no significant bronchial sounds. There is no egophony or dullness. Heart: Regular rate and rhythm with an audible S1-S2, no S3 no S4. There is no significant murmur click or rub, PMI was nondisplaced. Abdomen: Distended with generalized tenderness. No palpable mass. Prior surgical scars are well-healed. Palpable ascites. No organomegaly is palpable Extremities: The upper extremities have excellent pulses they are symmetric, no significant petechiae or telangiectasia. No splinter hemorrhages were noted. lower extremities have mild edema ulcerations are noted on the left anterior thigh and the right lateral hip. Please see the nursing documentation photography for measurements Neuro: Awake alert oriented to person place and time. There are no acute new gross focal sensory motor deficits. Results CBC & Chem 7: 08/26/18 06:00 08/26/18 06:00 Labs: Abnormal Lab Results - Last 24 Hours (Table) 08/25/18 08/25/18 08/25/18 Range/Units 22:48 23:40 23:40 WBC 36.0 H (3.8-10.6) k/uL RBC 2.79 L (3.80-5.40) m/uL Hgb 8.3 L (11.4-16.0) gm/dL Hct 27.0 L (34.0-46.0) % MCHC 30.9 L (31.0-37.0) g/dL RDW 23.1 H (11.5-15.5) % Neutrophils # (Manual) 32.70 H (1.3-7.7) k/uL Lymphocytes # (Manual) (1.0-4.8) k/uL Monocytes # (Manual) 1.80 H (0-1.0) k/uL Metamyelocytes # (Man) 0.36 H (0) k/uL Sodium 126 L (137-145) mmol/L Carbon Dioxide 15 L (22-30) mmol/L BUN 74 H (7-17) mg/dL Creatinine 1.34 H (0.52-1.04) mg/dL Glucose 114 H (74-99) mg/dL POC Glucose (mg/dL) 128 H (75-99) mg/dL Calcium 7.1 L (8.4-10.2) mg/dL Magnesium (1.6-2.3) mg/dL Urine Protein (Negative) Urine Bilirubin (Negative) 08/26/18 08/26/18 08/26/18 Range/Units 05:15 06:00 06:00 WBC 40.3 H (3.8-10.6) k/uL RBC 2.78 L (3.80-5.40) m/uL Hgb 8.6 L (11.4-16.0) gm/dL Hct 27.5 L (34.0-46.0) % MCHC (31.0-37.0) g/dL RDW 22.8 H (11.5-15.5) % Neutrophils # (Manual) 39.40 H (1.3-7.7) k/uL Lymphocytes # (Manual) 0.40 L (1.0-4.8) k/uL Monocytes # (Manual) (0-1.0) k/uL Metamyelocytes # (Man) (0) k/uL Sodium 129 L (137-145) mmol/L Carbon Dioxide 15 L (22-30) mmol/L BUN 74 H (7-17) mg/dL Creatinine 1.35 H (0.52-1.04) mg/dL Glucose 106 H (74-99) mg/dL POC Glucose (mg/dL) (75-99) mg/dL Calcium 7.0 L (8.4-10.2) mg/dL Magnesium (1.6-2.3) mg/dL Urine Protein Trace H (Negative) Urine Bilirubin 1+ H (Negative) 08/26/18 Range/Units 06:00 WBC (3.8-10.6) k/uL RBC (3.80-5.40) m/uL Hgb (11.4-16.0) gm/dL Hct (34.0-46.0) % MCHC (31.0-37.0) g/dL RDW (11.5-15.5) % Neutrophils # (Manual) (1.3-7.7) k/uL Lymphocytes # (Manual) (1.0-4.8) k/uL Monocytes # (Manual) (0-1.0) k/uL Metamyelocytes # (Man) (0) k/uL Sodium (137-145) mmol/L Carbon Dioxide (22-30) mmol/L BUN (7-17) mg/dL Creatinine (0.52-1.04) mg/dL Glucose (74-99) mg/dL POC Glucose (mg/dL) (75-99) mg/dL Calcium (8.4-10.2) mg/dL Magnesium 1.5 L (1.6-2.3) mg/dL Urine Protein (Negative) Urine Bilirubin (Negative) Microbiology - Last 24 Hours (Table) 08/23/18 13:40 Blood Culture - Preliminary Blood No Growth after 72 hours Laboratory Results WBC 40.3 k/uL (3.8-10.6) H 08/26/18 06:00 RBC 2.78 m/uL (3.80-5.40) L 08/26/18 06:00 Hgb 8.6 gm/dL (11.4-16.0) L 08/26/18 06:00 Hct 27.5 % (34.0-46.0) L 08/26/18 06:00 MCV 99.0 fL (80.0-100.0) 08/26/18 06:00 MCH 31.1 pg (25.0-35.0) 08/26/18 06:00 MCHC 31.4 g/dL (31.0-37.0) 08/26/18 06:00 RDW 22.8 % (11.5-15.5) H 08/26/18 06:00 Plt Count 227 k/uL (150-450) 08/26/18 06:00 Neutrophils % 85 % 08/23/18 13:33 Neutrophils % (Manual) 87 % 08/26/18 06:00 Band Neutrophils % 11 % 08/26/18 06:00 Lymphocytes % 7 % 08/23/18 13:33 Lymphocytes % (Manual) 1 % 08/26/18 06:00 Monocytes % 7 % 08/23/18 13:33 Monocytes % (Manual) 1 % 08/26/18 06:00 Eosinophils % 0 % 08/23/18 13:33 Basophils % 0 % 08/23/18 13:33 Metamyelocytes % 1 % 08/25/18 23:40 Myelocytes % 1 % 08/24/18 07:16 Neutrophils # TOY DESIGNER 08/25/18 23:40 Neutrophils # (Manual) 39.40 k/uL (1.3-7.7) H 08/26/18 06:00 Lymphocytes # 0.5 k/uL (1.0-4.8) L 08/23/18 13:33 Lymphocytes # (Manual) 0.40 k/uL (1.0-4.8) L 08/26/18 06:00 Monocytes # 0.5 k/uL (0-1.0) 08/23/18 13:33 Monocytes # (Manual) 0.40 k/uL (0-1.0) 08/26/18 06:00 Eosinophils # 0.0 k/uL (0-0.7) 08/23/18 13:33 Basophils # 0.0 k/uL (0-0.2) 08/23/18 13:33 Metamyelocytes # (Man) 0.36 k/uL (0) H 08/25/18 23:40 Myelocytes # (Manual) 0.06 k/uL (0) H 08/24/18 07:16 Nucleated RBCs 0 /100 WBC (0-0) 08/26/18 06:00 Manual Slide Review Performed 08/26/18 06:00 Polychromasia Present 08/24/18 07:16 Hypochromasia Moderate 08/26/18 06:00 Poikilocytosis (manual Present 08/25/18 23:40 Anisocytosis Moderate 08/26/18 06:00 Macrocytosis Moderate 08/26/18 06:00 Target Cells Present 08/25/18 23:40 King-Ribera Bodies Present 08/26/18 06:00 Crenated Cell Present 08/24/18 07:16 PT 13.4 sec (9.0-12.0) H 08/23/18 13:33 INR 1.3 (<1.2) H 08/23/18 13:33 APTT 32.7 sec (22.0-30.0) H 08/23/18 13:33 Sample Site LRAD 08/24/18 18:15 ABG pH 7.41 (7.35-7.45) 08/24/18 18:15 ABG pCO2 31 mmHg (35-45) L 08/24/18 18:15 ABG pO2 92 mmHg (83-108) 08/24/18 18:15 ABG HCO3 19 mmol/L (21-25) L 08/24/18 18:15 ABG O2 Saturation 95.6 % (94-97) 08/24/18 18:15 ABG Base Excess -4.7 mmol/L 08/24/18 18:15 Ronald Test Yes 08/24/18 18:15 FiO2 21 % 08/24/18 18:15 Sodium 129 mmol/L (137-145) L 08/26/18 06:00 Potassium 4.1 mmol/L (3.5-5.1) 08/26/18 06:00 Chloride 102 mmol/L (98-107) 08/26/18 06:00 Carbon Dioxide 15 mmol/L (22-30) L 08/26/18 06:00 Anion Gap 12 mmol/L 08/26/18 06:00 BUN 74 mg/dL (7-17) H 08/26/18 06:00 Creatinine 1.35 mg/dL (0.52-1.04) H 08/26/18 06:00 Est GFR (CKD-EPI)AfAm 50 (>60 ml/min/1.73 sqM) 08/26/18 06:00 Est GFR (CKD-EPI)NonAf 43 (>60 ml/min/1.73 sqM) 08/26/18 06:00 Glucose 106 mg/dL (74-99) H 08/26/18 06:00 POC Glucose (mg/dL) 128 mg/dL (75-99) H 08/25/18 22:48 POC Glu Housekeeping Aid ID Uri Godwin 08/25/18 22:48 Plasma Lactic Acid Esau 1.0 mmol/L (0.7-2.0) 08/25/18 23:40 Calcium 7.0 mg/dL (8.4-10.2) L 08/26/18 06:00 Magnesium 1.5 mg/dL (1.6-2.3) L 08/26/18 06:00 Total Bilirubin 0.7 mg/dL (0.2-1.3) 08/24/18 07:16 AST 26 U/L (14-36) 08/24/18 07:16 ALT 29 U/L (9-52) 08/24/18 07:16 Alkaline Phosphatase 152 U/L (38-126) H 08/24/18 07:16 Troponin I <0.012 ng/mL (0.000-0.034) 08/23/18 13:33 NT-Pro-B Natriuret Pep 808 pg/mL 08/23/18 13:33 Total Protein 3.8 g/dL (6.3-8.2) L 08/24/18 07:16 Albumin 1.6 g/dL (3.5-5.0) L 08/24/18 07:16 TSH 2.140 mIU/L (0.465-4.680) 08/26/18 08:50 Urine Color Yellow 08/26/18 05:15 Urine Appearance Clear (Clear) 08/26/18 05:15 Urine pH 5.5 (5.0-8.0) 08/26/18 05:15 Ur Specific [place] 1.022 (1.001-1.035) 08/26/18 05:15 Urine Protein Trace (Negative) H 08/26/18 05:15 Urine Glucose (UA) Negative (Negative) 08/26/18 05:15 Urine Ketones Negative (Negative) 08/26/18 05:15 Urine Blood Negative (Negative) 08/26/18 05:15 Urine Nitrite Negative (Negative) 08/26/18 05:15 Urine Bilirubin 1+ (Negative) H 08/26/18 05:15 Urine Urobilinogen 2.0 mg/dL (<2.0) 08/26/18 05:15 Ur Leukocyte Esterase Negative (Negative) 08/26/18 05:15 Urine RBC 1 /hpf (0-5) 08/23/18 15:40 Urine WBC 3 /hpf (0-5) 08/23/18 15:40 Ur Squamous Epith Cells 3 /hpf (0-4) 08/23/18 15:40 Cellular Casts 4 /lpf (0) 08/23/18 15:40 Hyaline Casts 42 /lpf (0-2) H 08/23/18 15:40 Urine Mucus Rare /hpf (None) H 08/23/18 15:40 Influenza Type A RNA Not Detected (Not Detectd) 08/23/18 13:40 Influenza Type B (PCR) Not Detected (Not Detectd) 08/23/18 13:40 Microbiology 08/23/18 13:40 Blood Blood Culture - Preliminary No Growth after 72 hours Assessment and Plan (1) Abdominal pain Current Visit: Yes Status: Acute Code(s): R10.9 - UNSPECIFIED ABDOMINAL PAIN SNOMED Code(s): 48099144 (2) Ascites Current Visit: No Status: Acute Code(s): R18.8 - OTHER ASCITES SNOMED Code(s): 430168865 (3) Pyoderma gangrenosum Current Visit: Yes Status: Acute Code(s): L88 - PYODERMA GANGRENOSUM SNOMED Code(s): 40594175 (4) Spontaneous bacterial peritonitis Narrative/Plan: 58-year-old woman has a very complex past medical history, originally with breast carcinoma treated with lumpectomy and radiation therapy several years ago, who then has developed metastatic ovarian carcinoma. Currently treating with the oral Lynparza therapy and recurrent paracentesis for treatment of her ascites. At admission she was weak and ill was having emesis and acute renal failure this responded to current treatment. She did have a bout of cardiac dysrhythmia that resulted in her transfer to the intensive care unit that has now settled in is being followed by cardiology. She however has developed the extensive leukocytosis and there is concerns to infection related to the chronic abdominal process. Antibiotic therapy has been initiated with piperacillin tazobactam and Eraxis will be added pending further culture results at the time of the paracentesis tomorrow. There is no notation of a prior history of MRSA infection. Her pain control appears to be adequate. She does not have significant fever but she is somewhat compromised overall. With certainty well to improve protein intake as possible to help her healing status. The pyoderma gangrenosum is being treated with a topical steroid and the occlusive cover, a foam dressing can be utilized over these areas which may be more comfortable also. Current Visit: Yes Status: Acute Code(s): K65.2 - SPONTANEOUS BACTERIAL PERITONITIS SNOMED Code(s): 46642957
[2018-08-26] MEDS ORDERED: ANIDULAFUNGIN 200 MG in SODIUM CHLORIDE 0.9% 200 ML IVPB ONE (22:46)
[2018-08-27 05:58] LABS: Anisocytosis Moderate; HCT 25.6 % (34.0-46.0); Hypochromasia Slight; MCH 30.3 pg (25.0-35.0); MCHC 31.1 g/dL (31.0-37.0); MCV 97.5 fL (80.0-100.0); Macrocytosis Moderate; Mean Platelet Volume 7.7; Platelet Count 181 k/uL (150-450); RBC 2.63 m/uL (3.80-5.40); RDW 22.4 % (11.5-15.5); WBC 29.2 k/uL (3.8-10.6)
[2018-08-27 06:19] LABS: Albumin 1.5 g/dL (3.5-5.0); Calcium 6.8 mg/dL (8.4-10.2); Potassium 3.7 mmol/L (3.5-5.1); Total Bilirubin 0.6 mg/dL (0.2-1.3); Total Protein 3.8 g/dL (6.3-8.2)
[2018-08-27] MEDS ORDERED: SODIUM CHLORIDE 0.9% 500 ML 250 ML IV ONE (06:29)
[2018-08-27 06:32] LABS: Lymphocytes # (M) 0.29 k/uL (1.0-4.8); Monocytes # (M) 0.58 k/uL (0-1.0); Myelocytes # (M) 0.29 k/uL (0); Myelocytes % 1 %; Neutrophils # (M) 28.32 k/uL (1.3-7.7); Neutrophils % (M) 97 %; Nucleated Red Blood Cells 0 /100 WBC (0-0); Total Cells Counted 200
[2018-08-27] MEDS ORDERED: POTASSIUM CHLORIDE ER 20 MEQ TAB.ER PO SCH (07:00)
[2018-08-27] MEDS: SODIUM BICARBONATE TAB 650 MG TAB PO SCH ×2 (08:00→17:55)
[2018-08-27] MEDS: MORPHINE SULFATE ER 60 MG TABLET PO SCH (08:00)
[2018-08-27] MEDS: PSYLLIUM HUSK 100% 6 GM PACKET PO SCH (08:00)
[2018-08-27] MEDS: PANTOPRAZOLE 40 MG TABLET PO SCH (08:01)
[2018-08-27] MEDS: PROCHLORPERAZINE 10 MG TAB PO SCH ×3 (08:01→17:55)
[2018-08-27] MEDS: TRIAMCINOLONE 0.1% CREAM 80 GM TUBE TOPICAL SCH (08:02)
[2018-08-27] MEDS: PIPERACILLIN-TAZOBACTAM 3.375 GM in SODIUM CHLORIDE 0.9% 100 ML IVPB SCH ×2 (08:06→17:52)
[2018-08-27] MEDS: HEPARIN SODIUM,PORCINE 5,000 UNIT/ML 1 ML VIAL SQ SCH ×3 (08:06→17:48)
[2018-08-27] MEDS ORDERED: ALBUMIN HUMAN 25% 50 ML in EMPTY BAG 1 BAG IVPB ONE (08:30)
[2018-08-27] MEDS ORDERED: LYNPARZA 150 MG PO SCH (10:00)
--- NOTE | 2018-08-27 10:01 | PN ---
PROGRESS NOTE Mrs. Anderson is in sinus rhythm today. Heart rate is about 98 beats per minute. She is going for paracentesis. I was asked to see the patient for tachycardia. My evaluation suggests that her tachycardia is probably related to her decreased intravascular volume. No intervention is necessary. She has been hydrated. Her albumin is being also addressed. I advised a small dose of verapamil, but this was not given because of borderline blood pressure. Her echo revealed fair systolic function. Vitals are stable. Blood pressure 100/60, pulse rate is about 98. S1-S2 heard normally, short systolic murmur. Lungs reveal diminished air entry. Abdomen is distended with free fluid. Rest of physical exam unchanged. This patient has metastatic ovarian CA and multiple comorbid conditions. No active cardiac problems that require intervention. We will see her as needed. MMODL / IJN: [id number] /
--- NOTE | 2018-08-27 10:08 | P.PN ---
Subjective Patient is seen in follow-up for acute kidney injury. Her baseline creatinine is near 1. Renal function is a little improved. Creatinine 1.22 today. Oral intake is poor. Urine output has been about 20-30 mL an hour. She scheduled to undergo paracentesis today. She is maintained on bicarb drip at 100 mL an hour. Blood pressures remain on the lower end. Vital signs are stable. General: The patient appeared well nourished and normally developed. HEENT: Head exam is unremarkable. Neck is without jugular venous distension. LUNGS: Breath sounds decreased. HEART: Rate and Rhythm are regular. First and second heart sounds normal. No murmurs, rubs or gallops. ABDOMEN: Distention noted. EXTREMITITES: Trace edema. Objective - Vital Signs Vital signs: Vital Signs Temp 98.2 F 08/27/18 08:00 Pulse 93 08/27/18 09:00 Resp 14 08/27/18 09:00 BP 80/54 08/27/18 09:00 Pulse Ox 99 08/27/18 09:00 Intake & Output 08/26/18 08/27/18 08/27/18 18:59 06:59 18:59 Intake Total 2291.3 1538.3 820 Output Total 520 395 80 Balance 1771.3 1143.3 740 Weight 83.7 kg Intake: IV 1791.3 1298.3 620 Anidulafungin 200 mg In 200 Sodium Chloride 0.9% 200 ml @ 84 mls/hr IVPB ONCE ONE Rx#:[id number] Dextrose 5% in Water 1, 600 900 300 000 ml @ 100 mls/hr IV . [id number] AUDREY with Sodium Bicarb (1 Meq/ml) 150 ml Rx#:[id number] Magnesium Sulfate-D5w Pmx 166.3 33.3 1 gm In Dextrose/Water 1 100ml.bag @ 100 mls/hr IVPB Q1H [facility] Rx#: [id number] Piperacillin-Tazobactam 3 175 25 50 .375 gm In Sodium Chloride 0.9% 100 ml @ 25 mls/hr IVPB Q8HR [facility] Rx# :[id number] Sodium Chloride 0.9% 1, 850 000 ml @ 150 mls/hr IV . Q6H40M [facility] Rx#:[id number] Sodium Chloride 0.9% 500 250 ml 250 ml @ 999 mls/hr IV .Q16M ONE Rx#:[id number] kvo 140 20 Oral 500 240 200 Output: Urine 520 395 80 Other: Voiding Method Indwelling Catheter Indwelling Catheter Indwelling Catheter - Labs CBC & Chem 7: 08/27/18 05:22 08/27/18 05:22 Labs: Abnormal Lab Results - Last 24 Hours (Table) 08/27/18 08/27/18 Range/Units 05:22 05:22 WBC 29.2 H (3.8-10.6) k/uL RBC 2.63 L (3.80-5.40) m/uL Hgb 8.0 L (11.4-16.0) gm/dL Hct 25.6 L (34.0-46.0) % RDW 22.4 H (11.5-15.5) % Neutrophils # (Manual) 28.32 H (1.3-7.7) k/uL Lymphocytes # (Manual) 0.29 L (1.0-4.8) k/uL Myelocytes # (Manual) 0.29 H (0) k/uL Sodium 126 L (137-145) mmol/L Chloride 96 L (98-107) mmol/L Carbon Dioxide 21 L (22-30) mmol/L BUN 72 H (7-17) mg/dL Creatinine 1.22 H (0.52-1.04) mg/dL Glucose 126 H (74-99) mg/dL Calcium 6.8 L (8.4-10.2) mg/dL Alkaline Phosphatase 207 H (38-126) U/L Total Protein 3.8 L (6.3-8.2) g/dL Albumin 1.5 L (3.5-5.0) g/dL Microbiology - Last 24 Hours (Table) 08/26/18 06:00 Blood Culture - Preliminary Blood No Growth after 24 hours 08/23/18 13:40 Blood Culture - Preliminary Blood No Growth after 72 hours Assessment and Plan Plan: Assessment: 1. Acute kidney injury mostly prerenal secondary to hemodynamic instability and hypotension. Creatinine 1.22 today. Baseline is near 1. Urinalysis is quite benign. 2. SVTs maintained on verapamil. Cardiology following. 3. Hyponatremia secondary to acute kidney injury. Currently hypervolemic. Expect improvement post paracentesis. 4. Hypomagnesemia from poor oral intake. Improved. 5. Metabolic acidosis secondary to acute kidney injury and IV fluids. Better. 6. Ovarian cancer with metastatic disease. 7. History of PE. 8. Ascites scheduled for paracentesis today. Plan: Discontinue bicarbonate drip. Start normal saline at 75 mL an hour. 25 g of IV albumin prior to paracentesis. An additional 25 g if more than 5 L removed. Continue to monitor renal function and urine output. Cortisol level normal. Add midodrine 10 mg 3 times daily. Maintain oral sodium bicarbonate.
[2018-08-27] MEDS ORDERED: SODIUM CHLORIDE 0.9% 1,000 ML IV SCH (10:15)
[2018-08-27 10:17] VITALS: BMI 28.9
[2018-08-27] MEDS: VERAPAMIL 40 MG TAB PO SCH (10:24)
[2018-08-27] MEDS: DEXTROSE 5% IN WATER 1,000 ML with SODIUM BICARB (1 MEQ/ML) 150 ML IV SCH (10:25)
--- NOTE | 2018-08-27 12:17 | US ---
Therapeutic and diagnostic paracentesis. DATE OF EXAM: 08/27/2018 CLINICAL HISTORY: Ascites The procedure was discussed with the patient. The risks, complications, benefits, and alternatives we re discussed and any questions were answered. Informed consent was obtained. The patient was placed s upine on the ultrasound table and prepped and draped in the usual sterile fashion. All elements of maximal barrier technique were utilized. Under ultrasound guidance, access into the right lower quadrant was obtained, via the paracentesis catheter system and direct ultrasound guidanc e. Approximately 1.36 liters of straw-colored fluid was removed. The patient was stable throughout the p rocedure and remained stable upon completion of procedure. Sample sent to pathology for analysis. IMPRESSION: Successful paracentesis under ultrasound guidance.
--- NOTE | 2018-08-27 13:26 | P.PN ---
Subjective Progress Note Date: 08/27/18 Principal diagnosis: Dyspnea, multifactorial, but mostly secondary to metabolic acidosis related to renal failure, ascites, and anemia. This is a very pleasant 58-year-old female patient who follows with Dr. Fisher as her primary care physician. She has a history of osteoarthritis, gastroesophageal reflux disease, obesity with previous bariatric surgery, obstructive sleep apnea with UPPP surgery. She also has a history of left breast cancer status post lumpectomy and radiation in 2000. She was also found to have stage III ovarian cancer and had a previous hysterectomy at which time her bowel was negative had bowel surgical repair. She's had a second surgery for cancer debulking. She has been followed at [facility] in [place] with Dr. Alaniz. She is currently on Lynparza 300mg BID as her oral chemotherapy agent. She is also having monthly paracentesis for abdominal ascites. She has not required a thoracentesis in the past. She has a history of PE/DVT and IVC filter placed. She states she had a CT angiogram done recently at [facility] and was found to be a clot within the filter. She's been initiated on Eliquis. She presented here to the emergency room yesterday with complaints of increasing shortness of breath and dyspnea on exertion. No real cough or congestion. No fever, chills or night sweats. No hemoptysis. Chest x-ray showed no acute pulmonary process. VQ scan showed very low probability of pulmonary embolism. White count 6.4. Hemoglobin 8.6. Platelet count 270,000. Sodium 129. Initial creatinine 1.3 to currently 1.00. Total protein 3.8. Albumin 1.6. Troponin negative times one. ProBNP 808. She is 0.9 normal saline at 75 ML's per hour. She does have some abdominal fullness. 1-2+ lower extremity peripheral edema. She also has bilateral hip wounds that were being treated in the wound Center now being followed at [facility]. Patient was reevaluated today on 08/25/2018, basically about the same, her ABG is definitely reassuring as far as her lungs are concerned. The ABG itself does not reflect any restrictive pathology, hence there is no evidence of any lung disease based on the ABG. However the patient was noted to be metabolically acidotic, and that is related to her renal status and related to her ascites. Patient was also noted to be anemic, and I believe the anemia is another major contributing factor to her shortness of breath. Echocardiogram is pending. But clearly the patient has no significant pulmonary pathology that explains her shortness of breath. Hence the patient was updated on her condition, and I believe she will do better eventually with addressing her primary issues which is ovarian cancer ascites renal failure and metabolic acidosis. No need for any further diagnostic workup on her lungs. Patient was reevaluated today on 08/26/2018. Last night, the patient had a sudden episode of supraventricular tachycardia, associated with hypotension, transferred to the intensive care unit, and cardiology was consulted. Patient converted on her own before receiving adencard which was recommended by cardiology over the phone. Hence the patient was kept in the intensive care unit, more fluids were given presently her IV fluid is at 1 50 mL per hour. And she was placed on oral verapamil as per cardiology on consultation. Patient continues to have low bicarb, continues to have good urine output, but she continues to have significant ascites. Scheduled to have a paracentesis pawel orrow. And in the meantime her WBC count jumped up significantly, and I'm really concerned about the possibility of spontaneous bacterial peritonitis. I added Zosyn empirically. I have also consulted nephrology because of her persistent uremia, and possible acute kidney injury could be related to prerenal etiology or hemodynamic instability or hypotension. Her urinalysis has been basically benign. Patient was started on sodium bicarb drip by nephrology. And recommended albumin to be given prior to paracentesis. Recommended also correction of her low magnesium. I have also recommended infectious disease consultation, strongly suspect that we may be dealing with abdominal sepsis. Her WBC count today is 40.3 her bicarb is 15 BUN remains unchanged compared to yesterday at 74 creatinine is 1.35. Patient was reevaluated today on 08/27/2018, remains in the ICU, no major cardiac arrhythmia noted over the last 24 hours. Patient remains in sinus rhythm, relatively asymptomatic from the cardiac perspective. However she is complaining of abdominal pain and discomfort. She had paracentesis done today, and the fluid was sent for different diagnostic studies, results of which are pending. Yesterday the patient was seen by infectious disease, and eraxis was added to the Zosyn. Clinically, overall the patient is about the same, she is quite frail, complaining of vague abdominal pain, no other symptoms. Not feeling well. Labs were reviewed, her WBC count is down to 29.2 today, hemoglobin is 8. Sodium is low at 126 which is her baseline. BUN remains 72 creatinine is 1.22. Improved compared to yesterday. Objective - Vital Signs Vital signs: Vital Signs Temp 98.2 F 08/27/18 08:00 Pulse 98 08/27/18 11:30 Resp 12 08/27/18 11:30 BP 86/58 08/27/18 11:30 Pulse Ox 99 08/27/18 11:30 Intake & Output 08/26/18 08/27/18 08/27/18 18:59 06:59 18:59 Intake Total 2291.3 1538.3 1170 Output Total 819 535 4609 Balance 1771.3 1143.3 -490 Weight 83.7 kg 83.7 kg Intake: IV 1791.3 1298.3 770 Anidulafungin 200 mg In 200 Sodium Chloride 0.9% 200 ml @ 84 mls/hr IVPB ONCE ONE Rx#:[id number] Dextrose 5% in Water 1, 600 900 400 000 ml @ 100 mls/hr IV . [id number] AUDREY with Sodium Bicarb (1 Meq/ml) 150 ml Rx#:[id number] Magnesium Sulfate-D5w Pmx 166.3 33.3 1 gm In Dextrose/Water 1 100ml.bag @ 100 mls/hr IVPB Q1H [facility] Rx#: [id number] Piperacillin-Tazobactam 3 175 25 100 .375 gm In Sodium Chloride 0.9% 100 ml @ 25 mls/hr IVPB Q8HR [facility] Rx# :[id number] Sodium Chloride 0.9% 1, 850 000 ml @ 150 mls/hr IV . Q6H40M [facility] Rx#:[id number] Sodium Chloride 0.9% 500 250 ml 250 ml @ 999 mls/hr IV .Q16M ONE Rx#:[id number] kvo 140 20 Intake, IV Titration 200 Amount Sodium Chloride 0.9% 1, 200 000 ml @ 75 mls/hr IV . [id number] [facility] Rx#:[id number] Oral 500 240 200 Output: Urine 520 395 300 Other 1360 Other: Voiding Method Indwelling Catheter Indwelling Catheter Indwelling Catheter # Voids 1 - Exam Physical Exam: Revealed a 58-year-old female in no distress. Patient looks frail and chronically ill. Head: Atraumatic, normocephalic HEENT:: [No neck masses.] [No thyromegaly.] [No JVD.] Chest: [Clear throughout, no crackles, no rhonchi, no wheezes.] Cardiac Exam: [Normal S1 and S2, no S3 gallop, no murmur.] Abdomen: [Soft, slightly tender to deep palpation, diminished bowel sounds, no g uarding. Extremities: [No clubbing, no edema, no cyanosis.] Neurological Exam: [No focal neurologic deficit.] Lymphatics: No lymphadenopathy. Psychiatric: Normal mood, affect and mental status examination Skin: No rashes. - Labs CBC & Chem 7: 08/27/18 05:22 08/27/18 05:22 Labs: Abnormal Lab Results - Last 24 Hours (Table) 08/27/18 08/27/18 Range/Units 05:22 05:22 WBC 29.2 H (3.8-10.6) k/uL RBC 2.63 L (3.80-5.40) m/uL Hgb 8.0 L (11.4-16.0) gm/dL Hct 25.6 L (34.0-46.0) % RDW 22.4 H (11.5-15.5) % Neutrophils # (Manual) 28.32 H (1.3-7.7) k/uL Lymphocytes # (Manual) 0.29 L (1.0-4.8) k/uL Myelocytes # (Manual) 0.29 H (0) k/uL Sodium 126 L (137-145) mmol/L Chloride 96 L (98-107) mmol/L Carbon Dioxide 21 L (22-30) mmol/L BUN 72 H (7-17) mg/dL Creatinine 1.22 H (0.52-1.04) mg/dL Glucose 126 H (74-99) mg/dL Calcium 6.8 L (8.4-10.2) mg/dL Alkaline Phosphatase 207 H (38-126) U/L Total Protein 3.8 L (6.3-8.2) g/dL Albumin 1.5 L (3.5-5.0) g/dL Microbiology - Last 24 Hours (Table) 08/26/18 06:00 Blood Culture - Preliminary Blood No Growth after 24 hours 08/23/18 13:40 Blood Culture - Preliminary Blood No Growth after 72 hours Assessment and Plan Assessment: Impression: Dyspnea secondary to anemia and metabolic acidosis related to her acute kidney injury, possible prerenal azotemia. And secondary to ascites, could also be related to intermittent episodes of supraventricular tachycardia although there was only one episode documented since admission Recurrent ascites, related to stage III ovarian cancer, patient had paracentesis done today, results of which are pending. There is possibly some concern about spontaneous bacterial peritonitis, and the fluid will be sent for cultures . In the meantime we'll continue Zosyn. Continue Eraxis Acute renal failure, possible prerenal azotemia will likely improve with hydration. Nephrology was consulted since the patient was not making much improvement with hydration. Hyponatremia most likely secondary to ascites., Suspect underlying SIADH. Anemia, last hemoglobin is 8.0 today, multifactorial. History of deep vein thromboses and pulmonary embolism, previous IVC filter placement, on anticoagulation therapy, VQ scan showed low probability for pulmonary embolism. History of GERD History of osteoarthritis. Supraventricular tachycardia, resolved on its own, verapamil was started by cardiology. Ovarian cancer with metastatic disease History of pulmonary embolism previous IVC filter placement, patient is on anticoagulation therapy. Acute metabolic acidosis secondary to acute kidney injury. Presently on bicarb drip, and patient is being cautiously hydrated. Acute leukocytosis, possible spontaneous bacterial peritonitis, patient is now on Zosyn. And Eraxis. Already seen by infectious disease on consultation Recommendation: Continue antibiotics, continue antifungal therapy, await cultures from the fluid which was obtained today, continue gentle hydration with the patient, continue verapamil, resume anticoagulations therapy after parac entesis today, patient will be kept in the ICU for the next 24 hours, and we will continue to follow closely. Again prognosis is relatively guarded. Time with Patient: Less than 30
--- NOTE | 2018-08-27 14:06 | P.CONS ---
History of Present Illness - Reason for Consult Consult date: 08/27/18 ovarian carcinoma, on PARP inhibitor Requesting physician: Austin Alcazar - Chief Complaint SOB, confusion - History of Present Illness Mr. Gallo is a very pleasant 58-year-old female patient of Dr. Alaniz at [facility] [place] in [place]. She is on PARP inhibitor for ovarian cancer. Patient has had multiple paracentesis. 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 Dr. Ruiz did talk with Dr. Alaniz, patient's most recent imaging studies did reveal stable disease. Patient is admitted with lethargy, confusion, increasing abdominal pain. Today patient's family states she is a little more alert, she is in the intensive care unit, plans are for a paracentesis today. Review of Systems 14 point ROS is as stated in HPI, info gathered from pt and family at bedside Past Medical History Past Medical History: Cancer, GERD/Reflux, Osteoarthritis (OA), Pulmonary Embolus (PE) Additional Past Medical History / Comment(s): BREAST AND OVARIAN CANCER , pt stated has a Paracentesis monthly since jan 2018 , hx left breast cancer(lumpectomy and radiation tx), hiatal hernia, diverticular disease, past hx of sleep apnea-had uvula removed. History of Any Multi-Drug Resistant Organisms: MRSA Year Discovered:: unknown MDRO Source:: skin Past Surgical History: Adenoidectomy, Bariatric Surgery, Bladder Surgery, Breast Surgery, Hysterectomy, Orthopedic Surgery, Tonsillectomy Additional Past Surgical History / Comment(s): LT BREAST BX/lumpectomy/RADIATION 2000, hysterectomy-"bowel was knicked" had sx to repair bowel, uvula removed d/t sleep apnea, rt knee meniscus repair, ivc filter 2016. rt knee meniscus repair, abd exploratory sx then 2nd sx for cancer/"debulking" Past Anesthesia/Blood Transfusion Reactions: No Reported Reaction Additional Past Anesthesia/Blood Transfusion Reaction / Comm: HX clausterphobia, blood transfusion-no reaction Past Psychological History: No Psychological Hx Reported Additional Psychological History / Comment(s): pt is , lives in own home, spouse works out of country so nephew is staying with pt, pt drives. Spouse works in [place]. She has traveled there it has been through [place] including [place] in the [place]. Denies significant illnesses during her trips. No experience. Pet cat lives in the home and the nephew takes care of her while she is in hospital. She does not work out of the home currently. Not a current tobacco smoker and no history of alcohol or recreational drug use is related Smoking Status: Never smoker Past Alcohol Use History: None Reported Additional Past Alcohol Use History / Comment(s): Patient has been a lifelong nonsmoker, no marijuana use, no illicit drug use, no alcohol use. Patient lives at home with her but he is overseas for work and her nephew is living with her. There is a cat named Bk in the home. 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 Past Drug Use History: None Reported - Past Family History Mother Family Medical History: No Reported History Father Family Medical History: No Reported History Medications and Allergies Home Medications Medication Instructions Recorded Confirmed Type Multivitamins, Thera [Multivitamin 1 tab PO DAILY 08/27/16 08/23/18 History (formulary)] Ondansetron HCl [Zofran] 8 mg PO Q8H PRN 06/22/18 08/23/18 History Polyethylene Glycol 3350 [Miralax] 17 gm PO DAILY PRN 06/22/18 08/23/18 History Prochlorperazine [Compazine] 10 mg PO QID 06/22/18 08/23/18 History Apixaban [Eliquis] 5 mg PO BID 08/23/18 08/23/18 History Filgrastim [Neupogen] 300 mcg IM DAILY 08/23/18 08/23/18 History Magnesium Hydroxide [Milk of 4,800 mg PO HS PRN 08/23/18 08/23/18 History Magnesia] Morphine Sulfate ER [Ms Contin] 60 mg PO TID 08/23/18 08/23/18 History Morphine Sulfate Ir [MSIR] 15 mg PO Q4H PRN 08/23/18 08/23/18 History Olaparib [Lynparza] 300 mg PO BID 08/23/18 08/23/18 History Omeprazole 20 mg PO DAILY 08/23/18 08/23/18 History Triamcinolone 0.1% Cream [Kenalog 1 applicatio TOPICAL BID 08/23/18 08/23/18 History 0.1% Cream] Zolpidem [Ambien] 10 mg PO HS PRN 08/23/18 08/23/18 History Allergies Allergy/AdvReac Type Severity Reaction Status Date / Time paclitaxel [From Taxol] Allergy Anaphylaxis Verified 08/23/18 13:46 Physical Exam Vitals: Vital Signs Temp Pulse Resp BP Pulse Ox 08/27/18 07:00 98 4 L 94/64 99 08/27/18 06:00 92 5 L 87/52 99 08/27/18 05:00 94 14 87/56 98 08/27/18 04:00 97.5 F L 91 12 84/47 99 08/27/18 03:00 90 6 L 77/43 99 08/27/18 02:00 96 6 L 80/47 99 08/27/18 01:30 98 6 L 80/47 99 08/27/18 00:22 98 F 99 5 L 73/54 98 08/27/18 00:00 96 10 L 85/53 98 08/26/18 23:30 99 6 L 85/53 98 08/26/18 23:00 104 H 7 L 72/58 98 08/26/18 22:30 104 H 10 L 76/54 98 08/26/18 22:00 107 H 8 L 82/49 92 L 08/26/18 21:30 105 H 12 74/55 98 08/26/18 21:00 106 H 8 L 94/57 99 08/26/18 20:30 112 H 8 L 87/54 98 08/26/18 20:00 97.5 F L 105 H 10 L 83/54 97 08/26/18 19:30 108 H 14 75/52 98 08/26/18 19:00 108 H 16 95/56 100 08/26/18 18:30 111 H 13 82/57 100 08/26/18 18:00 113 H 13 83/64 99 08/26/18 17:30 115 H 13 79/48 98 08/26/18 17:00 108 H 17 87/64 100 08/26/18 16:30 117 H 12 81/53 98 08/26/18 16:00 97.4 F L 107 H 13 85/52 99 08/26/18 15:30 108 H 12 93/57 98 08/26/18 15:00 13 102/60 98 08/26/18 14:30 105 H 13 83/58 98 08/26/18 14:00 112 H 14 87/56 98 08/26/18 13:30 109 H 12 84/49 98 08/26/18 13:00 107 H 11 L 91/56 99 08/26/18 12:30 113 H 15 89/54 99 08/26/18 12:00 96.9 F L 107 H 12 92/52 96 08/26/18 11:30 112 H 12 87/58 99 08/26/18 11:00 106 H 15 89/52 99 08/26/18 10:30 104 H 11 L 79/51 100 08/26/18 10:00 108 H 14 89/58 99 08/26/18 09:30 113 H 12 84/60 100 08/26/18 09:00 112 H 14 90/55 89 L Intake and Output 08/26/18 08/27/18 08/27/18 22:59 06:59 14:59 Intake Total 1179.6 800 370 Output Total 280 230 20 Balance 899.6 570 350 Intake: IV 939.6 800 370 Anidulafungin 200 mg In 200 Sodium Chloride 0.9% 200 ml @ 84 mls/hr IVPB ONCE ONE Rx#:[id number] Dextrose 5% in Water 1, 700 500 100 000 ml @ 100 mls/hr IV . [id number] AUDREY with Sodium Bicarb (1 Meq/ml) 150 ml Rx#:[id number] Magnesium Sulfate-D5w Pmx 99.6 1 gm In Dextrose/Water 1 100ml.bag @ 100 mls/hr IVPB Q1H AUDREY Rx#: [id number] Piperacillin-Tazobactam 3 100 .375 gm In Sodium Chloride 0.9% 100 ml @ 25 mls/hr IVPB Q8HR AUDREY Rx# :[id number] Sodium Chloride 0.9% 500 250 ml 250 ml @ 999 mls/hr IV .Q16M ONE Rx#:[id number] kvo 40 100 20 Oral 240 Output: Urine 280 230 20 Other: Voiding Method Indwelling Catheter Indwelling Catheter Weight 83.7 kg - Constitutional General appearance: cooperative, no acute distress, thin - EENT dry mouth Eyes: anicteric sclerae, EOMI ENT: hearing grossly normal - Neck Neck: no lymphadenopathy - Respiratory Respiratory: bilateral: CTA, diminished (bases) - Cardiovascular Rhythm: regular Heart sounds: normal: S1, S2 Abnormal Heart Sounds: no systolic murmur, no diastolic murmur, no rub, no S3 Gallop, no S4 Gallop, no click, no other leg Peripheral Edema: bilateral: 2+ - Gastrointestinal distended, masses in the epigastric and periumbilicus area - Integumentary Integumentary: pale - Musculoskeletal Musculoskeletal: generalized weakness Results CBC & Chem 7: 08/27/18 05:22 08/27/18 05:22 Labs: Abnormal Lab Results - Last 24 Hours (Table) 08/26/18 08/27/18 08/27/18 Range/Units 06:00 05:22 05:22 WBC 29.2 H (3.8-10.6) k/uL RBC 2.63 L (3.80-5.40) m/uL Hgb 8.0 L (11.4-16.0) gm/dL Hct 25.6 L (34.0-46.0) % RDW 22.4 H (11.5-15.5) % Neutrophils # (Manual) 28.32 H (1.3-7.7) k/uL Lymphocytes # (Manual) 0.29 L (1.0-4.8) k/uL Myelocytes # (Manual) 0.29 H (0) k/uL Sodium 126 L (137-145) mmol/L Chloride 96 L (98-107) mmol/L Carbon Dioxide 21 L (22-30) mmol/L BUN 72 H (7-17) mg/dL Creatinine 1.22 H (0.52-1.04) mg/dL Glucose 126 H (74-99) mg/dL Calcium 6.8 L (8.4-10.2) mg/dL Magnesium 1.5 L (1.6-2.3) mg/dL Alkaline Phosphatase 207 H (38-126) U/L Total Protein 3.8 L (6.3-8.2) g/dL Albumin 1.5 L (3.5-5.0) g/dL Microbiology - Last 24 Hours (Table) 08/26/18 06:00 Blood Culture - Preliminary Blood No Growth after 24 hours 08/23/18 13:40 Blood Culture - Preliminary Blood No Growth after 72 hours Comments: reviewed VQ report, ECHO report Assessment and Plan (1) Anemia aplastic aregenerative Narrative/Plan: Transfuse for hemoglobin less than 7 or symptomatic Current Visit: Yes Status: Acute Priority: High Code(s): D61.9 - APLASTIC ANEMIA, UNSPECIFIED SNOMED Code(s): 17001715 (2) Abdominal pain Narrative/Plan: Patient is going to have a paracentesis with culture and sensitivity performed, concern is for infectious process. Current Visit: Yes Status: Acute Priority: High Code(s): R10.9 - UNS PECIFIED ABDOMINAL PAIN SNOMED Code(s): 40245850 (3) Hyponatremia Narrative/Plan: Pt is being seen by Nephrology, she is on fluid restriction. Current Visit: Yes Status: Acute Priority: High Code(s): E87.1 - HYPO-OSMOLALITY AND HYPONATREMIA SNOMED Code(s): 40764403 (4) Pyoderma gangrenosum Narrative/Plan: Per family wounds are healing well. No current evidence to suggest that the areas are worsening. Cont prescribed wound care Current Visit: Yes Status: Chronic Priority: Medium Code(s): L88 - PYODERMA GANGRENOSUM SNOMED Code(s): 37085994 (5) Ovarian cancer Narrative/Plan: Dr. Ruiz did discuss case with Dr. Ying pt primary Oncologist. Will reinitiate olaparib, cont to hold GCSF. Current Visit: Yes Status: Chronic Priority: Medium Code(s): C56.9 - VANDANA GNANT NEOPLASM OF UNSPECIFIED OVARY SNOMED Code(s): 136469030
[2018-08-27] MEDS: MULTIVITAMINS, THERA 1 EACH TAB PO SCH (14:14)
[2018-08-27] MEDS: MIDODRINE 5 MG TAB PO SCH ×2 (14:17→17:55)
[2018-08-27 14:54] LABS: Appearance,BF Hazy; Color,BF Yellow; Nucleated Cells, Body Fluid 60 /uL; RBC, Body Fluid 480 /uL
[2018-08-27 14:58] LABS: Mononuclear WBC,Body Fluid 10 %; Polynuclear WBC,Body Fluid 90 %; Total Cells Counted,Body Fluid 100
[2018-08-27] MEDS ORDERED: MORPHINE SULFATE ER 60 MG TABLET PO PRN (16:01)
[2018-08-27 16:10] VITALS: TEMP 97.8
[2018-08-27 16:15] LABS: Total Protein, Body Fluid 2500 mg/dL
[2018-08-27 18:20] VITALS: BP 80/60; PULSE 115; RESP 17
[2018-08-27] MEDS ORDERED: ANIDULAFUNGIN 100 MG in SODIUM CHLORIDE 0.9% 100 ML IVPB SCH (21:00)
--- NOTE | 2018-08-28 10:08 | DS ---
DISCHARGE SUMMARY DATE OF SERVICE: 08/27/2018 FINAL DIAGNOSES: 1. Acute renal failure possibly prerenal, multifactorial. 2. Generalized weakness and tiredness, rule out paraneoplastic syndrome. 3. Supraventricular tachycardia. 4. Ovarian cancer with intraabdominal mental status. 5. Ascites, status post abdominal paracentesis. 6. Gastroesophageal reflux disease. 7. Degenerative joint disease. 8. Chronic pulmonary embolism. The patient is on Eliquis, on hold. 9. Hiatal hernia. 10.Chronic diverticular. 11.Normocytic anemia. 12.Hyponatremia. 13.Hypoalbuminemia. 14.Left thigh pyoderma gangrenosum lesion. 15.Paroxysmal supraventricular tachycardia. 16.Hypotension from volume loss: DISCHARGE DISPOSITION: The patient will be transferred to [facility] in stable condition with guarded prognosis: Total time taken 35 minutes. HISTORY OF PRESENT ILLNESS: This is a 58-year-old woman with a past medical history was admitted initially with renal failure. Patient also had multiple other medical problems including dysphagia and as well as generalized weakness with possible paraneoplastic syndrome also considered and Neurology was absent, so I discussed the case with the [facility] MICU fellow and the patient will be transferred to [facility] for further evaluation and treatment. The patient also had multiple other medical problems at this time. Overall prognosis guarded but stable for transfer. On exam, vitals are stable. CARDIOVASCULAR: S1, S2. ABDOMEN: Soft, nontender. NERVOUS SYSTEM: Diffusely weak. Please refer to the MAR for the current medications. MMODL / IJN: [id number] /
== END 2018-08-27 19:10 | disposition short-term general hospital (02) | DRG 682 ==
LOC: EC 13:03 → 3NMEDONC 16:44 → 2SICU 08-25 23:11
PROVIDERS: ADMIT Hospitalist; ATTEND Hospitalist
PROC: 0W9G3ZZ Drainage of Peritoneal Cavity, Percutaneous Approach (ICD-10-PCS; principal; 2018-08-27)
DX: N17.9 Acute kidney failure, unspecified (principal); K65.2 Spontaneous bacterial peritonitis; C56.9 Malignant neoplasm of unspecified ovary; C79.89 Secondary malignant neoplasm of other specified sites; E44.0 Moderate protein-calorie malnutrition; E87.1 Hypo-osmolality and hyponatremia; E87.2 Acidosis; I27.82 Chronic pulmonary embolism; I47.1 Supraventricular tachycardia; L88 Pyoderma gangrenosum; R18.8 Other ascites; I95.9 Hypotension, unspecified; E83.42 Hypomagnesemia; D63.0 Anemia in neoplastic disease; E86.0 Dehydration; G89.29 Other chronic pain; K21.9 Gastro-esophageal reflux disease without esophagitis; K44.9 Diaphragmatic hernia without obstruction or gangrene; K57.30 Diverticulosis of large intestine without perforation or abscess without bleeding; M19.91 Primary osteoarthritis, unspecified site; E66.9 Obesity, unspecified; R01.1 Cardiac murmur, unspecified; R60.0 Localized edema; F40.240 Claustrophobia; Z79.01 Long term (current) use of anticoagulants; Z79.899 Other long term (current) drug therapy; Z98.84 Bariatric surgery status; Z68.28 Body mass index [BMI] 28.0-28.9, adult; Z95.828 Presence of other vascular implants and grafts; Z92.3 Personal history of irradiation; Z90.710 Acquired absence of both cervix and uterus; Z86.718 Personal history of other venous thrombosis and embolism; Z85.3 Personal history of malignant neoplasm of breast; Z86.14 Personal history of Methicillin resistant Staphylococcus aureus infection; Z82.5 Family history of asthma and other chronic lower respiratory diseases
CPT/HCPCS: 36415; 36600; 49083; 71046; 76705; 78582; 80048; 80053; 81001; 81003; 82533; 82805; 82945; 83605; 83615; 83735; 83880; 84157; 84443; 84484; 85025; 85610; 85730; 87040; 87070; 87075; 87102; 87205; 87502; 89050; 93005; 93306; 94760; 96361; 96374; 99285

== ENCOUNTER 2018-09-25 12:37 | Inpatient (IN) | payer BC, OTHER ==
[2018-09-25] MEDS ORDERED: SODIUM CHLORIDE 0.9% 1,000 ML IV STA ×2 (13:22→14:59)
[2018-09-25 13:47] LABS: ALT 23 U/L (9-52); AST 26 U/L (14-36); Albumin 2.5 g/dL (3.5-5.0); Alkaline Phosphatase 314 U/L (38-126); Anion Gap 15 mmol/L; Blood Urea Nitrogen 20 mg/dL (7-17); Calcium 7.6 mg/dL (8.4-10.2); Carbon Dioxide 28 mmol/L (22-30); Chloride 89 mmol/L (98-107); Glucose 114 mg/dL (74-99); Magnesium 1.1 mg/dL (1.6-2.3); Sodium 132 mmol/L (137-145); Total Bilirubin 2.1 mg/dL (0.2-1.3); Total Protein 6.5 g/dL (6.3-8.2)
[2018-09-25 13:51] LABS: Potassium 5.1 mmol/L (3.5-5.1)
--- NOTE | 2018-09-25 13:59 | XR ---
EXAMINATION TYPE: XR chest 2V DATE OF EXAM: 09/25/2018 COMPARISON: 08/23/2018 INDICATION: Difficulty breathing TECHNIQUE: Frontal and lateral views of the chest are obtained. FINDINGS: The heart size is normal. The pulmonary vasculature is normal. There is a moderate right pleural effusion.. Postsurgical left axillary region. IMPRESSION: 1. Moderate right pleural effusion.
[2018-09-25 14:07] LABS: Anisocytosis Moderate; HCT 38.7 % (34.0-46.0); Hypochromasia Moderate; MCH 30.4 pg (25.0-35.0); MCHC 31.2 g/dL (31.0-37.0); MCV 97.2 fL (80.0-100.0); Macrocytosis Slight; Mean Platelet Volume 9.3; Platelet Count 103 k/uL (150-450); RBC 3.99 m/uL (3.80-5.40); RDW 20.2 % (11.5-15.5); WBC 5.6 k/uL (3.8-10.6)
[2018-09-25] MEDS ORDERED: LORazepam 2 MG/ML INJ IV STA (14:15)
[2018-09-25 14:17] LABS: HGB 12.1 gm/dL (11.4-16.0)
[2018-09-25] MEDS ORDERED: ADENOSINE 3 MG/ML 2 ML VIAL IVP STA ×3 (14:29→19:36)
[2018-09-25 14:38] LABS: Lymphocytes # (M) 0.45 k/uL (1.0-4.8); Monocytes # (M) 0.39 k/uL (0-1.0); Neutrophils # (M) 4.76 k/uL (1.3-7.7); Neutrophils % (M) 85 %; Nucleated Red Blood Cells 0 /100 WBC (0-0); Total Cells Counted 100
[2018-09-25] MEDS ORDERED: MORPHINE SULFATE 4 MG/ML SYRINGE IVP PRN (15:25)
--- NOTE | 2018-09-25 16:05 | ED ---
SOB HPI - General Chief Complaint: Shortness of Breath Stated Complaint: SOB Time Seen by Provider: 09/25/18 12:39 Source: patient, family, EMS Mode of arrival: EMS Limitations: no limitations - History of Present Illness Initial Comments: Patient presents with shortness of breath. She has a history of metastatic ovarian cancer. She is a hospice patient. She was having worsening shortness of breath and was sent to the emergency department. Patient doesn't answer questions or provide further information. - Related Data Home Medications Medication Instructions Recorded Confirmed Zolpidem [Ambien] 10 mg PO HS PRN 08/23/18 09/25/18 HYDROmorphone HCL 4 mg PO Q2H 09/25/18 09/25/18 Haloperidol Oral Soln [Haldol Oral 1 mg PO BID 09/25/18 09/25/18 Soln] Ipratropium Nebulized [Atrovent 0.5 mg INHALATION RT-QID 09/25/18 09/25/18 Nebulized 0.2 MG/ML] Lansoprazole [Prevacid] 30 mg PO DAILY 09/25/18 09/25/18 MORPHINE ORAL MEJIA CONC 20mg/mL 25 mg PO Q4H 09/25/18 09/25/18 [Roxanol Oral Soln Conc 20MG/ML] Sennosides [Senna] 8.6 mg PO BID 09/25/18 09/25/18 oxyCODONE HCL [OxyCONTIN] 60 mg PO Q12HR 09/25/18 09/25/18 Allergies Allergy/AdvReac Type Severity Reaction Status Date / Time paclitaxel [From Taxol] Allergy Anaphylaxis Verified 09/25/18 13:02 Review of Systems ROS Statement: Those systems with pertinent positive or pertinent negative responses have been documented in the HPI. ROS Other: All systems not noted in ROS Statement are negative. Past Medical History Past Medical History: Cancer, GERD/Reflux, Osteoarthritis (OA), Pulmonary Embolus (PE) Additional Past Medical History / Comment(s): BREAST AND OVARIAN CANCER , pt stated has a Paracentesis monthly since jan 2018 , hx left breast cancer(lumpectomy and radiation tx), hiatal hernia, diverticular disease, past hx of sleep apnea-had uvula removed. History of Any Multi-Drug Resistant Organisms: MRSA Date of last positivie culture/infection: unknown MDRO Source:: skin Past Surgical History: Adenoidectomy, Bariatric Surgery, Bladder Surgery, Breast Surgery, Hysterectomy, Orthopedic Surgery, Tonsillectomy Additional Past Surgical History / Comment(s): LT BREAST BX/lumpectomy/RADIATION 2000, hysterectomy-"bowel was knicked" had sx to repair bowel, uvula removed d/t sleep apnea, rt knee meniscus repair, ivc filter 2016. rt knee meniscus repair, abd exploratory sx then 2nd sx for cancer/"debulking" Past Anesthesia/Blood Transfusion Reactions: No Reported Reaction Additional Past Anesthesia/Blood Transfusion Reaction / Comment(s): HX clausterphobia, blood transfusion-no reaction Past Psychological History: No Psychological Hx Reported Smoking Status: Never smoker Past Alcohol Use History: None Reported Past Drug Use History: None Reported - Past Family History Mother Family Medical History: No Reported History Father Family Medical History: No Reported History General Exam Limitations: altered mental status General appearance: obtunded Head exam: Present: atraumatic Eye exam: Present: normal appearance ENT exam: Present: normal exam Neck exam: Present: normal inspection Respiratory exam: Present: rales (As) Cardiovascular Exam: Present: tachycardia GI/Abdominal exam: Present: soft (PROBABLY A) Extremities exam: Present: normal inspection Back exam: Present: normal inspection Neurological exam: Present: altered Psychiatric exam: Present: normal affect Skin exam: Present: warm Course Vital Signs 09/25/18 09/25/18 09/25/18 12:39 12:43 12:45 Pulse Rate 164 H Respiratory 20 50 H Rate Blood Pressure 116/84 116/84 O2 Sat by Pulse 87 L 93 L Oximetry 09/25/18 09/25/18 09/25/18 12:50 13:00 13:10 Pulse Rate Respiratory Rate Blood Pressure 116/84 116/84 115/75 O2 Sat by Pulse 91 L 93 L 93 L Oximetry 09/25/18 09/25/18 09/25/18 13:20 13:30 13:40 Pulse Rate 174 H Respiratory 42 H 32 H 49 H Rate Blood Pressure 115/75 109/88 109/88 O2 Sat by Pulse 88 L 94 L 88 L Oximetry 09/25/18 09/25/18 09/25/18 13:50 14:00 14:10 Pulse Rate 236 H 225 H Respiratory 39 H 41 H Rate Blood Pressure 109/88 109/88 O2 Sat by Pulse 85 L 81 L Oximetry 09/25/18 09/25/18 09/25/18 14:20 14:30 14:40 Pulse Rate 218 H 174 H Respiratory 42 H 52 H 46 H Rate Blood Pressure 114/91 114/91 108/84 O2 Sat by Pulse 83 L 85 L 85 L Oximetry 09/25/18 09/25/18 14:53 14:57 Pulse Rate 172 H Respiratory 36 H 50 H Rate Blood Pressure O2 Sat by Pulse 99 Oximetry Medical Decision Making - Medical Decision Making Patient presents with shortness of breath. She has - Lab Data Result diagrams: 09/25/18 13:20 09/25/18 13:20 Lab Results 09/25/18 09/25/18 09/25/18 Range/Units 13:20 13:20 13:20 WBC 5.6 (3.8-10.6) k/uL RBC 3.99 (3.80-5.40) m/uL Hgb 12.1 D (11.4-16.0) gm/dL Hct 38.7 (34.0-46.0) % MCV 97.2 (80.0-100.0) fL MCH 30.4 (25.0-35.0) pg MCHC 31.2 (31.0-37.0) g/dL RDW 20.2 H (11.5-15.5) % Plt Count 103 L (150-450) k/uL Neutrophils % (Manual) 85 % Lymphocytes % (Manual) 8 % Monocytes % (Manual) 7 % Neutrophils # (Manual) 4.76 (1.3-7.7) k/uL Lymphocytes # (Manual) 0.45 L (1.0-4.8) k/uL Monocytes # (Manual) 0.39 (0-1.0) k/uL Nucleated RBCs 0 (0-0) /100 WBC Hypochromasia Moderate Anisocytosis Moderate Macrocytosis Slight PT (9.0-12.0) sec INR (<1.2) APTT (22.0-30.0) sec Sodium 132 L (137-145) mmol/L Potassium 5.1 (3.5-5.1) mmol/L Chloride 89 L (98-107) mmol/L Carbon Dioxide 28 (22-30) mmol/L Anion Gap 15 mmol/L BUN 20 H (7-17) mg/dL Creatinine 0.25 L (0.52-1.04) mg/dL Est GFR (CKD-EPI)AfAm >90 (>60 ml/min/1.73 sqM) Est GFR (CKD-EPI)NonAf >90 (>60 ml/min/1.73 sqM) Glucose 114 H (74-99) mg/dL Plasma Lactic Acid Esau 4.5 H* (0.7-2.0) mmol/L Calcium 7.6 L (8.4-10.2) mg/dL Magnesium 1.1 L (1.6-2.3) mg/dL Total Bilirubin 2.1 H (0.2-1.3) mg/dL AST 26 (14-36) U/L ALT 23 (9-52) U/L Alkaline Phosphatase 314 H (38-126) U/L Troponin I (0.000-0.034) ng/mL NT-Pro-B Natriuret Pep pg/mL Total Protein 6.5 (6.3-8.2) g/dL Albumin 2.5 L (3.5-5.0) g/dL 09/25/18 09/25/18 09/25/18 Range/Units 13:20 13:20 13:20 WBC (3.8-10.6) k/uL RBC (3.80-5.40) m/uL Hgb (11.4-16.0) gm/dL Hct (34.0-46.0) % MCV (80.0-100.0) fL MCH (25.0-35.0) pg MCHC (31.0-37.0) g/dL RDW (11.5-15.5) % Plt Count (150-450) k/uL Neutrophils % (Manual) % Lymphocytes % (Manual) % Monocytes % (Manual) % Neutrophils # (Manual) (1.3-7.7) k/uL Lymphocytes # (Manual) (1.0-4.8) k/uL Monocytes # (Manual) (0-1.0) k/uL Nucleated RBCs (0-0) /100 WBC Hypochromasia Anisocytosis Macrocytosis PT (9.0-12.0) sec INR (<1.2) APTT (22.0-30.0) sec Sodium (137-145) mmol/L Potassium (3.5-5.1) mmol/L Chloride (98-107) mmol/L Carbon Dioxide (22-30) mmol/L Anion Gap mmol/L BUN (7-17) mg/dL Creatinine (0.52-1.04) mg/dL Est GFR (CKD-EPI)AfAm (>60 ml/min/1.73 sqM) Est GFR (CKD-EPI)NonAf (>60 ml/min/1.73 sqM) Glucose (74-99) mg/dL Plasma Lactic Acid Esau (0.7-2.0) mmol/L Calcium (8.4-10.2) mg/dL Magnesium (1.6-2.3) mg/dL Total Bilirubin (0.2-1.3) mg/dL AST (14-36) U/L ALT (9-52) U/L Alkaline Phosphatase (38-126) U/L Troponin I 0.013 (0.000-0.034) ng/mL NT-Pro-B Natriuret Pep 1300 pg/mL Total Protein (6.3-8.2) g/dL Albumin (3.5-5.0) g/dL - EKG Data EKG Comments: I obtained a 12-lead EKG, interpreted by me as showing ventricular rate 170 bpm, normal DE interval, no ST elevation or depression, interpreted by me as sinus tachycardia. I obtained a second twelve-lead EKG because the patient's heart rate went up. The Ventricular rate is 223 bpm. There are no P waves. No ST elevation or depression, interpreted by me as supraventricular tachycardia. Third EKG interpreted by me as showing ventricular rate 170 bpm, normal DE interval, no ST elevation or depression, interpreted by me as sinus tachycardia. Disposition Clinical Impression: Adult respiratory distress syndrome Disposition: ADMITTED IP TO THIS HOSP Condition: Critical Is patient prescribed a controlled substance at d/c from ED?: No Referrals: Erich Fisher MD [Primary Care Provider] - 1-2 days
[2018-09-25] MEDS ORDERED: HYDROmorphone 1 MG/ML 1 ML SYRINGE IVP PRN ×2 (16:42→16:43)
[2018-09-25] MEDS ORDERED: LORazepam 2 MG/ML INJ IV PRN (16:46)
[2018-09-25 16:57] VITALS: BP 107/77; PULSE 158
[2018-09-25] MEDS ORDERED: MORPHINE SULFATE (100 MG/2 ML) 100 MG in SODIUM CHLORIDE 0.9% 100 ML IV SCH (22:30)
[2018-09-25 22:48] VITALS: BMI 23.8
[2018-09-25] MEDS: LORazepam 2 MG/ML INJ IV PRN (22:50)
[2018-09-25] MEDS ORDERED: SCOPOLAMINE 1.5MG/72HR PATCH TRANSDERM SCH (23:00)
[2018-09-26] MEDS: LORazepam 2 MG/ML INJ IV PRN (04:01)
--- NOTE | 2018-09-26 08:16 | HP ---
HISTORY AND PHYSICAL DATE OF ADMISSION: 09/25/2018. PRESENTING COMPLAINT: Tired, rundown, abdominal pain. HISTORY OF PRESENTING COMPLAINT: This is a very pleasant lady, well known to me from recent admissions, last one being close to a month ago. The patient does follow with a family doctor, Dr. Fisher and her oncologist is Dr. Davies out of the area. Chronic stable medical conditions include GERD, osteoarthritis, hiatal hernia, colonic diverticulosis. The patient has a diagnosis of ovarian cancer with intraabdominal spread. The patient had been on chemotherapy and also periodic paracentesis. The patient also in June of this year had multiple infected appearing hematomas I and D was carried out and subsequently she was diagnosed to have pyoderma gangrenosum that responded well to topical steroid treatments. The patient was being transported down to [place] for paracenteses. Meantime, patient became more tachycardic, short of breath, distressed and patient was brought to the ER here. Heart rate is was way up over 150s and received adenosine. The patient's father, patient's sister, patient's close friend and were all present. is the decision maker. The patient has been doing very poorly in the last few days, barely eating. Pains became more of a trouble, became more lethargic, more distended and right now quite a bit short of breath, cannot even give any history. REVIEW OF SYSTEMS: Could not be done as patient is very lethargic, tired. Rest as above. PAST MEDICAL HISTORY: GERD, osteoarthritis, pulmonary embolism, treated with IVC filter, left breast cancer treated with lumpectomy and radiation treatment, hiatal hernia, diverticulosis, ovarian cancer, metastatic spread, pyoderma gangrenosum. PAST SURGICAL HISTORY: Adenoidectomy, bariatric surgery, bladder surgery, breast surgery, hysterectomy, tonsillectomy, left breast lumpectomy, radiation, uvula removed for sleep apnea, right knee meniscus, inferior vena cava filter in 2017, abdominal exploratory surgery with some debulking. SOCIAL HISTORY: . No smoking. No alcohol. FAMILY HISTORY: Emphysema. HOME MEDICATIONS: 1. OxyContin 60 mg q.12h. 2. Ambien 10 mg p.o. q.h.s. p.r.n. 3. Senna 8.6 mg b.i.d. 4. Roxanol p.r.n. 5. Prevacid 30 mg p.o. daily. 6. Atrovent 0.5 inhalation q.i.d. 7. Haldol 1 mg b.i.d. 8. Dilaudid 4 mg q.2. ALLERGIES: TAXOL. PHYSICAL EXAMINATION: VITAL SIGNS: On examination: Afebrile, respiration 40s, blood pressure 106/84, heart rate up to the 180s, pulse ox 91 percent on non-rebreather. GENERAL APPEARANCE: Very tired, exhausted. eyes half open, crackling in the chest. EYES: Pupils equal. Conjunctivae pale. HEENT: External appearance of nose and ears normal. Oral cavity dry. NECK: JVD unable to assess. Mass not palpable. RESPIRATORY: Effort increased. Accessory muscles are working. LUNGS: Scattered crackles. CARDIOVASCULAR: First and second sounds normal. Some edema. ABDOMEN: Distended, tender. No guarding or rigidity. Liver and spleen not palpable. LYMPHATIC: No lymph nodes palpable in the neck or axilla. PSYCHIATRY: Patient is rather lethargic. Obtunded, barely arousable. NEUROLOGICAL: Pupils equal. No facial asymmetry. INVESTIGATIONS: White count 5.6, hemoglobin 12.1, platelets 103, potassium 5.1, BUN 20, creatinine 0.25. ASSESSMENT: 1. Advanced metastatic cancer with very poor functional state. 2. Secondary ascites due to ovarian cancer. 3. Chronic abdominal pain from ovarian cancer. 4. Gastroesophageal reflux disease. 5. Primary osteoarthritis. 6. Chronic pulmonary embolism for which patient had inferior vena cava filter. 7. Hiatal hernia. 8. Left thigh pyoderma gangrenosum. PLAN: Had a talk with the patient's and other family at the bedside. understands the patient is doing very poorly and is increased for comfort measures. The patient already was under hospice care and hence patient is being admitted for [facility] for symptom control. I ordered a morphine drip, scopolamine patch, atropine drops, oxygen for comfort. Care was discussed at length with the patient and family. Questions were answered. Prognosis is very poor. Copy to Dr. Erich Fisher. MMODL / SHAMAN: [id number] /
[2018-09-26 12:19] VITALS: RESP 30
--- NOTE | 2018-09-26 23:56 | DS ---
DISCHARGE SUMMARY DATE OF ADMISSION: 09/25/2018. DATE PATIENT : 09/26/2018. CAUSE OF : Advanced metastatic ovarian cancer. OTHER MEDICAL PROBLEMS: 1. Gastroesophageal reflux disease. 2. Primary osteoarthritis. 3. Chronic pulmonary embolism. 4. Left thigh pyoderma gangrenosum. HOSPITAL COURSE: This patient admitted under hospice, [facility] for symptom control for advanced metastatic ovarian cancer. The patient was treated with comfort pack including morphine, scopolamine. The patient this morning. Did talk to the patient's family including the . Copy to Dr. Erich Fisher. MMTRIXIEL / SHAMAN: [id number] /
--- NOTE | 2018-09-29 07:21 | CDI ---
Documentation Clarification Form Date: 09/29 From: Chau Peters Phone: call [phone] Admit Date: 09/25/2018 7:25:00 PM Patient Name: No Anderson Visit Number: [id number] Discharge Date: 09/26/2018 12:44:00 PM ATTENTION: The Clinical Documentation Specialists (CDI) and [facility] Coding Staff appreciate your assistance in clarifying documentation. Please respond to the clarification below the line at the bottom and electronically sign. The CDI & [facility] Coding staff will review the response and follow-up if needed. Please note: Queries are made part of the Legal Health Record. If you have any questions, please contact the author of this message via ITS. Dr. Austin Alcazar This patient is admitted with respiratory distress per ED note. History/Risk Factors: Ascites Pulse Ox: lowest 83L highest 93L Treatment:given Bipap Patient asmitted with SOB found to have ascites and respiratory distress, In ED under clinical impression mentioned as Acute respiratory distress syndrome by Billy Larry MD. In order to accurately reflect the severity of condition, please indicate if the above clinical findings and treatment signify a respiratory condition, such as: Acute Respiratory Distress Syndrome Respiratory Failure, please specify -Acute -Acute on Chronic -Chronic Further specify (if known): -With hypercapnia? -With hypoxia? Other, please specify Unable to determine acute hpoxic respiratory failure, POA MTDD
== END 2018-09-26 12:44 | disposition expired | DRG 754 ==
LOC: EC 12:37 → 3NMEDONC 19:25
PROVIDERS: ADMIT Hospitalist; ATTEND Hospitalist
PROC: 5A09357 Assistance with Respiratory Ventilation, Less than 24 Consecutive Hours, Continuous Positive Airway Pressure (ICD-10-PCS; principal; 2018-09-25)
DX: C79.60 Secondary malignant neoplasm of unspecified ovary (principal); J96.01 Acute respiratory failure with hypoxia; R18.0 Malignant ascites; L88 Pyoderma gangrenosum; K21.9 Gastro-esophageal reflux disease without esophagitis; Z51.5 Encounter for palliative care; M19.90 Unspecified osteoarthritis, unspecified site; G89.3 Neoplasm related pain (acute) (chronic); R41.82 Altered mental status, unspecified; K44.9 Diaphragmatic hernia without obstruction or gangrene; Z88.8 Allergy status to other drugs, medicaments and biological substances; Z86.711 Personal history of pulmonary embolism; Z85.3 Personal history of malignant neoplasm of breast; Z90.89 Acquired absence of other organs; Z98.84 Bariatric surgery status; Z90.710 Acquired absence of both cervix and uterus; Z87.19 Personal history of other diseases of the digestive system; Z95.828 Presence of other vascular implants and grafts; Z98.890 Other specified postprocedural states; Z83.6 Family history of other diseases of the respiratory system; Z79.891 Long term (current) use of opiate analgesic; Z79.899 Other long term (current) drug therapy; Z92.3 Personal history of irradiation
CPT/HCPCS: 36415; 71046; 80053; 83605; 83735; 83880; 84484; 85025; 85610; 85730; 93005; 94660; 96361; 96374; 96375; 96376; 99285